=== PATIENT | male | born 1960 | race Caucasian/White ===

== ENCOUNTER → 2016-11-27 | Outpatient (CLI) | payer OTHER ==
[2016-11-27 09:53] LABS: CALCIUM 9.2 mg/dl (8.5-10.1)
[2016-11-27 09:54] LABS: ALT/SGPT 83 U/L (12-78); BLOOD UREA NITROGEN 23 mg/dl (7-18); BUN/CREATININE RATIO 11.7 (10-20); CARBON DIOXIDE 27 mmol/L (21-32); CHLORIDE 107 mmol/L (98-107); CHOLESTEROL 138 mg/dl (0-200); GLUCOSE 171 mg/dl (70-99); POTASSIUM 4.3 mmol/L (3.5-5.1); SODIUM 142 mmol/L (136-145); TRIGLYCERIDES 310 mg/dl (0-150); VERY LOW DENSITY LIPOPROT CALC 62 mg/dl
[2016-11-27 09:58] LABS: ALKALINE PHOSPHATASE 119 U/L (45-117); AST/SGOT 78 U/L (15-37); CHOLESTEROL/HDL RATIO 4.1; HDL CHOLESTEROL 34 mg/dl; LDL CHOLESTEROL CALCULATED 42 mg/dl; PHOSPHORUS 2.8 mg/dl (2.5-4.9)
[2016-11-27 10:01] LABS: ESTIMATED AVERAGE GLUCOSE 189 mg/dl; HA1C FLAG Normal (Normal)
[2016-11-27 10:14] LABS: URINE PROTIEN/CREAT RATIO 0.2 (0-0.2); URINE TOTAL PROTEIN 32.1 mg/dl (0-11.9)
== END ==
LOC: C.LAB 07:13
PROVIDERS: ATTEND Internal Medicine Nephrology
DX: N18.3 Chronic kidney disease, stage 3 (moderate) (principal); I10 Essential (primary) hypertension; E11.21 Type 2 diabetes mellitus with diabetic nephropathy; R80.9 Proteinuria, unspecified; D53.9 Nutritional anemia, unspecified; E55.9 Vitamin D deficiency, unspecified; N25.81 Secondary hyperparathyroidism of renal origin; C65.2 Malignant neoplasm of left renal pelvis; E11.40 Type 2 diabetes mellitus with diabetic neuropathy, unspecified; E78.5 Hyperlipidemia, unspecified

== ENCOUNTER → 2017-08-12 | Outpatient (CLI) | payer OTHER ==
[~2017-08-12] MED LIST: ASPI81TA28 PO; CYM/60 PO; GLIM2TAB2 PO; INSU1INJ32 SQ; ISOS60TA25 PO; METO25TA3 PO; NIAC1TAB59 PO; NVLG SQ; OSEL75CA23 PO; PRAS1TAB6 PO; PROMSYP2 PO; RAMI5CAP PO; SIMV20TA2 PO; SITA50TA3 PO; TAMS0.4C38 PO
[2017-08-12 13:06] LABS: INFLUENZA B ANTIGEN Neg for Influ B (NEG)
== END | disposition home or self-care (01) ==
LOC: C.LAB 10:53
PROVIDERS: ATTEND Family Medicine
DX: R50.9 Fever, unspecified (principal)

== ENCOUNTER 2019-05-21 23:06 | Inpatient (IN) ==
--- OUTSIDE RECORDS SUMMARY | 2019-05-21 23:09 | External Medical Summary | Continuity of Care Document ---
:1960 Author Name Alondra MJelly Address Unavailable Unavailable , Care Team Providers Name Role Phone Unavailable Unavailable Unavailable PCP, UNKNOWN Unavailable Unavailable Unavailable Unavailable Unavailable Problems Cervical radiculopathy at C8 (723.4) (M54.12) Allergies and Adverse Reactions Allergy history not documented Medications Medications not documented Procedures Procedures not documented Immunizations Immunizations not documented Plan of Treatment Planned Observations Planned Goals not documented Results No Known Results Results not documented
[2019-05-21 23:50] LABS: Basophils # (auto) 0.02 K/uL (0-0.2); Basophils % (auto) 0.2 %; Eosinophils # (auto) 0.28 K/uL (0-0.5); Eosinophils % (auto) 2.9 %; Hematocrit (blood only) 36.5 % (42-52); Hemoglobin 11.6 g/dL (14.0-18.0); Immature Granulocytes # (auto) 0.04 K/uL (0.00-0.02); Immature Granulocytes % (auto) 0.4 %; Lymphocytes # (auto) 1.75 K/uL (1.2-3.4); Lymphocytes % (auto) 18.2 %; Mean Corpuscular Hemoglobin 29.2 pg (25-34); Mean Corpuscular Hgb Conc 31.8 g/dL (32-36); Mean Corpuscular Volume 91.9 fL (80-100); Mean Platelet Volume 9.9 fL (7.4-10.4); Monocytes # (auto) 0.88 K/uL (0.11-0.59); Monocytes % (auto) 9.2 %; Neutrophils # (auto) 6.62 K/uL (1.4-6.5); Neutrophils % (auto) 69.1 %; Platelet Count 211 K/uL (130-400); RDW Coefficient of Variation 13.6 % (11.5-14.5); RDW Standard Deviation 45.9 fL (36.4-46.3); Red Blood Count 3.97 M/uL (4.7-6.1); White Blood Count 9.59 K/uL (4.8-10.8)
[2019-05-22 00:08] LABS: BUN Creatinine Ratio 9.4 (10-20); Calcium 8.4 mg/dl (8.5-10.1); Creatinine Clr Calc Pharmacy 41.2 ml/min; Est GFR (Non-African American) 27.6; Magnesium 2.1 mg/dl (1.8-2.4); Potassium 4.2 mmol/L (3.5-5.1)
[2019-05-22 00:20] LABS: Albumin Globulin Ratio 0.8 (0.9-2); Bilirubin,Total 0.3 mg/dl (0.2-1); Troponin I 0.168 ng/ml (0-0.045)
[2019-05-22] MEDS ORDERED: Heparin IV Low Dose WITH Bolus STA (00:28)
[2019-05-22] MEDS ORDERED: METOPROLOL TARTRATE 1 MG/ML VIAL IV STA ×3 (00:37→08:21)
[2019-05-22] MEDS ORDERED: ASPIRIN 325 MG ECTAB PO STA (00:37)
[2019-05-22] MEDS ORDERED: HEPARIN SOD (PORCINE) 1000 UNIT/ML 10 ML VIAL ONE (00:40)
[2019-05-22 00:46] LABS: Prothrombin Time 10.3 Seconds (9.0-12.0)
[2019-05-22] MEDS: HEPARIN SODIUM/DEXTROSE 25,000 UNITS/500 ML BAG IV SCH ×2 (00:51→10:06)
[2019-05-22 01:36] LABS: Partial Thromboplastin Time 26.3 Seconds (21.0-31.0)
[2019-05-22] MEDS ORDERED: MECLIZINE 12.5 MG TAB PO PRN (02:39)
[2019-05-22] MEDS ORDERED: ONDANSETRON INJ 2 MG/ML 2 ML VIAL IV PRN (02:39)
[2019-05-22] MEDS ORDERED: ACETAMINOPHEN W/CODEINE #3 1 TAB PO PRN (02:39)
[2019-05-22] MEDS ORDERED: SODIUM CHLORIDE 0.9% 1000ML 1,000 ML IV SCH (02:39)
[2019-05-22] MEDS ORDERED: METOPROLOL TARTRATE 1 MG/ML VIAL IV ONE (03:04)
[2019-05-22] MEDS ORDERED: GLUCOSE 40% GEL 15 GM TUBE PO PRN (03:45)
[2019-05-22] MEDS ORDERED: DEXTROSE 50% 50 ML SYRINGE IV PRN (03:45)
[2019-05-22] MEDS ORDERED: GLUCOSE 10 TABS/TUBE PO PRN (03:45)
[2019-05-22] MEDS ORDERED: GLUCAGON FOR INJ 1 MG VIAL SQ PRN (03:45)
--- NOTE | 2019-05-22 04:17 | History and Physical Report ---
DATE OF ADMISSION: 05/22/2019 CHIEF COMPLAINT: Chest pain, shortness of breath. HISTORY OF PRESENT ILLNESS: This is a 59-year-old male with past medical history significant for diabetes, CAD status post stents, hyperlipidemia, obstructive sleep apnea, BPH, history of melanoma, history of renal cell carcinoma status post left nephrectomy, history of peripheral neuropathy, presents with chest pain, shortness of breath. Since yesterday, he had some mid chest pain, pressure-like feeling, moderate in severity, no radiation, also some sweating and he is also getting shortness of breath on exertion. The chest pain is also more exertional and reduce at rest and today even climbing one flight of stairs or walking short distance was making him short of breath and lately he is getting more weak and tired, so he took nitro at home and this caused some headache and he came to the ER. Currently, when he came in, his blood pressure was high. He received IV Lopressor and also aspirin and his troponin is 0.16. His troponins in the previous admissions were negative. EKG is unremarkable. Currently, pain is resolved, The patient says he has sleep apnea but does not use CPAP. He had a sleep study done and was told he may need CPAP and went for second sleep study and it did not go well and he did not it again. Didnot had nocturnal pulse ox study in the past. Currently, denies any dizziness, no blurred visions, no earache, no runny nose, no sore throat, no cough, no nausea, no vomiting, no abdominal pain. Normal bowel and bladder movements. No hematuria or burning micturition, no melena or hematochezia. No swelling in the legs, no rash. ALLERGIES: NSAIDS. PAST MEDICAL HISTORY: As mentioned above. PAST SURGICAL HISTORY: Status post left nephrectomy, cardiac catheterization with stent placement, lymph node biopsy. MEDICATIONS: Currently, the patient is on simvastatin 20 mg p.o. at bedtime, Cymbalta 60 mg p.o. daily, Niaspan ER 500 mg p.o. daily, Effient 10 mg p.o. daily, Flomax 0.4 mg p.o. daily, colestipol 1 g b.i.d., NovoLog FlexPen 14 units with breakfast, 18 units with lunch, Imdur 90 mg daily, ramipril 5 mg p.o. daily, metoprolol 12.5?mg p.o. b.i.d., nitroglycerin 0.4 mg sublingual p.r.n., Tradjenta 5 mg daily, Tylenol with codeine 1 tablet every 4 hours p.r.n., colchicine 0.6 mg p.r.n., cyanocobalamin 1000 mcg p.o. daily, aspirin 162 mg daily, Tresiba 62 units daily, meclizine 25 mg p.o. t.i.d. p.r.n., vitamin D 1000 units p.o. daily, Xanax 0.5 mg p.r.n. FAMILY HISTORY: Significant for grandmother had skin cancer. SOCIAL HISTORY: . No smoking, no alcohol, no drug use. REVIEW OF SYMPTOMS: As per HPI. Rest of review of systems negative. PHYSICAL EXAMINATION: GENERAL: The patient is obese, not in acute distress. VITAL SIGNS: Temperature 36.8, pulse 86, respiratory rate 18, blood pressure 178/89, and oxygen 96% on room air. HEENT: No pallor, no icterus. Pupils equal, round, reactive to light. NECK: No JVD, no neck masses, no carotid bruits. CARDIOVASCULAR: S1, S2 heard, regular rate and rhythm, no murmur, no gallop. RESPIRATORY SYSTEM: Normal AP diameter. No thyromegaly. No wheezing, no crackles. ABDOMEN: Soft, bowel sounds present, nontender. No distention. CENTRAL NERVOUS SYSTEM: Cranial nerves II-XII grossly intact. Nonfocal. EXTREMITIES: No edema, no erythema. LABORATORY DATA: WBC is 9.5, hemoglobin 11.6, hematocrit 36.5, platelets 211. PT 10.3, INR 1.1. Sodium 141, potassium 4.2, chloride 109, bicarbonate 25, BUN 23, creatinine 2.4, serum glucose 184, calcium 8.4, magnesium 2.1, total bilirubin 0.3, AST 29, ALT 28, alkaline phosphatase 168. Troponin 0.16, BNP 1026. rib/ chest x-ray unremarkable, await official report. EKG: Normal sinus rhythm with rate of 91, no significant change from previous EKG. ASSESSMENT AND PLAN: This is a 59-year-old male with history of diabetes, coronary artery disease status post stents, obstructive sleep apnea, benign prostatic hyperplasia, hyperlipidemia, presents with chest pain, shortness of breath. 1. Chest pain and shortness of breath on exertion. Troponin is mildly elevated at 0.16. On previous admission troponin was not elevated, possibly non-ST elevated myocardial infarction / unstable angina, started on IV heparin and received aspirin in the Emergency Room. We will continue IV heparin, IV morphine p.r.n. and iv Lopressor p.r.n. Continue his home medications of Imdur, Toprol, aspirin, Effient, and statin. Follow serial cardiac enzymes, follow echo. We will keep her nothing per mouth and consult cardiology for further recommendations. 2. Coronary artery disease status post stents. Continue his home medication of statin, beta zeke, Imdur, aspirin, niacin, and Effient. and Niacin. 3. Diabetes. , insulin sliding scale. Continue home Tresiba q hs. IF NPO tomorrow may need to reduce the dose. Follow hemoglobin A1c levels. 4. Obstructive sleep apnea, not on CPAP and needs to follow with primary care physician. May need to get a sleep study and may need nocturnal pulse ox study. 5. Acute renal failure, chronic kidney disease stage III, baseline creatinine of 2.1, current creatinine of 2.4. Getting gentle fluids. Follow the labs in morning. 6. Deep venous thrombosis prophylaxis, on IV heparin. DISPOSITION: Admit to tele floor. Expect discharge home and follow with family doctor. Level 1 full code. MTDD
--- NOTE | 2019-05-22 05:35 | XRay Report ---
XR ribs RT min 3V w CXR1V CLINICAL HISTORY: sob, recent fall right rib pain COMPARISON STUDY: No previous studies for comparison. FINDINGS: Fractures anterior right seventh eighth and ninth ribs. Old fracture right 10th rib. No ammy dence for pneumothorax. Remaining bony structures are unremarkable. IMPRESSION: 1. Fracture anterior right seventh through ninth ribs. 2. Old fracture right 10th rib. 3. No evidence for pneumothorax. The above report was generated using voice recognition software. It may contain grammatical, syntax or spelling errors. Electronically signed by: Robert Wagner M.D. 05/22/2019 5:34 AM
[2019-05-22 05:40] LABS: Basophils # (auto) 0.03 K/uL (0-0.2); Basophils % (auto) 0.3 %; Eosinophils # (auto) 0.39 K/uL (0-0.5); Hematocrit (blood only) 36.9 % (42-52); Hemoglobin 12.1 g/dL (14.0-18.0); Immature Granulocytes # (auto) 0.06 K/uL (0.00-0.02); Immature Granulocytes % (auto) 0.6 %; Lymphocytes # (auto) 2.24 K/uL (1.2-3.4); Lymphocytes % (auto) 23.1 %; Mean Corpuscular Hemoglobin 29.7 pg (25-34); Mean Corpuscular Hgb Conc 32.8 g/dL (32-36); Mean Corpuscular Volume 90.7 fL (80-100); Mean Platelet Volume 9.6 fL (7.4-10.4); Monocytes # (auto) 0.91 K/uL (0.11-0.59); Monocytes % (auto) 9.4 %; Neutrophils # (auto) 6.08 K/uL (1.4-6.5); Neutrophils % (auto) 62.6 %; Platelet Count 207 K/uL (130-400); RDW Coefficient of Variation 13.7 % (11.5-14.5); RDW Standard Deviation 45.3 fL (36.4-46.3); Red Blood Count 4.07 M/uL (4.7-6.1); White Blood Count 9.71 K/uL (4.8-10.8)
[2019-05-22 05:58] LABS: BUN Creatinine Ratio 8.9 (10-20); Calcium 8.2 mg/dl (8.5-10.1); Creatinine Clr Calc Pharmacy 43.8 ml/min; Est GFR (African American) 34.7; Est GFR (Non-African American) 29.9
[2019-05-22 06:09] LABS: Partial Thromboplastin Ratio 1.4; Partial Thromboplastin Time 38.2 Seconds (21.0-31.0)
[2019-05-22] MEDS: METOPROLOL TARTRATE 1 MG/ML VIAL IV PRN (07:33)
[2019-05-22] MEDS: INSULIN ASPART 100 UNITS/ML 3 ML PEN SC SCH ×4 (07:40→20:10)
[2019-05-22] MEDS: ISOSORBIDE MONO EXTENDED REL 60 MG TABCR PO SCH (07:48)
[2019-05-22] MEDS: MoRPHine SULFATE 2 MG/ML CARP IV PRN ×2 (07:58→16:36)
[2019-05-22] MEDS ORDERED: MIDAZOLAM HCL 1 MG/ML 2ML VIAL ONE (08:00)
[2019-05-22] MEDS ORDERED: HEPARIN (PORCINE) 1000 UNIT/ML 10 ML (CATH LAB USE ONLY) ONE (08:00)
[2019-05-22] MEDS ORDERED: NiCARDipine HCL INJ 2.5 MG/ML 10 ML AMP ONE (08:00)
[2019-05-22] MEDS ORDERED: fentaNYL citrate 100 MCG/2 ML VIAL ONE (08:00)
[2019-05-22] MEDS: NITROGLYCERIN SL 0.4 MG/TAB TAB SL PRN ×2 (08:01→08:06)
[2019-05-22] MEDS ORDERED: NITROGLYCERIN/D5W 100MCG/ML 20ML SYR ONE (08:02)
[2019-05-22] MEDS ORDERED: ASPIRIN 81 MG CHEW ONE (08:07)
[2019-05-22 08:12] LABS: Estimated Average Glucose 183 mg/dl
--- NOTE | 2019-05-22 08:24 | Cardiology Consultation ---
Date of Consultation May 22, 2019 Assessment & Plan (1) NSTEMI (non-ST elevated myocardial infarction): Received phone call from Dr Gomez while I was driving in to the hospital just before 8 am stating the patient was in distress with progressive CP and SOB. SBP > 200 mm Hg. On my arrival , pt on Bipap, had already received 7. 5 mg of of metoprolol EKG without significant acute ST changes. Heart alert protocol activated by Dr Gomez just prior to my arrival. After assessing pt , I agree. Has history of single kidney, s/p nephrectomy for renal cell CA. Baseline creatine 2.2 , lab 05/10/19 at [facility]. 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 Update, 05/22/2019 at 9:35 AM: Cardiac catheterization revealed known distal LAD occlusion, previously documented on cardiac catheterization report dated back to 2008. No other coronary culprit. The patient's left ventricular end-diastolic pressure however was elevated at 30 mmHg, and ongoing hypertension was noted in the cardiac catheterization laboratory. At this time, it appears that the patient's symptoms of shortness of breath are due to hypertensive crisis with combined left ventricular systolic and diastolic dysfunction, likely some degree of volume overload in the setting of chronic kidney disease. His creatinine of 2.4 on presentation is a little bit higher than is 2.2 which is his previous baseline but not significantly so. He however now has received a small dose of contrast. The patient's blood pressure has been refractory to doses of IV metoprolol and sublingual nitroglycerin x2, he has been placed on an IV nitroglycerin infusion in the [facility] and is to be transferred to the intensive care unit for ongoing care. Cautious diuresis will be pursued with the advice of the nephrology service. Given cardiac catheterization data, patient has likely had a mild troponin elevation in setting of myocardial strain from hypertension and volume overload. Echocardiogram reveals anteroseptal, apical wall motion abnormality, and basal inferior wall motion of normality is compatible with his prior remote history, with mild left ventricular systolic dysfunction ejection fraction in the range of 45%, grade 2 diastolic dysfunction with Doppler findings suggestive of elevated filling pressure. Further recommendations will be forthcoming. History of Present Illness Attending Physician: Marcie Gomez MD History of Present Illness Jonny Burgos is a 59 year old male seen in cardiology consultation per the request of Dr Koo and Dr Gomez for the evaluation of chest discomfort. The patient's PCP is Dr Dre Castano. His primary cardioogist is Dr Meza in [place], [place]. Patient has a history of renal cell carcinoma with removed nephrectomy and resultant single kidney. Per review of his record, his baseline creatinine is 2.2, with a recent calculated GFR of 31.5 as an outpatient on 05/10/2019. He also has a history of type 2 diabetes mellitus, and coronary heart disease. Review of the available records there appears he had a past myocardial infarction, and I [facility]. At that time at the age of 48 the patient had a diagnostic cardiac catheterization on 08/29/2018 which revealed a subtotal occlusion of the left anterior descending coronary artery with right to left collaterals to the LV apex and also had severe right PDA disease. CT surgery has been consulted that time, and it was felt that the LAD territory was not viable, and therefore the patient went on to have PCI to the RPDA lesion. A week ago the patient was traveling and had a mechanical fall while in the shower and suffered right-sided injury, based on chest x-ray performed on presentation last evening he has had a rib fracture. More recently, 2 days ago he started complaining of on and off again chest discomfort, with 2 episodes prior to hospital stay. He also had some associated shortness of breath. Due to the shortness of breath he presented to the emergency department at [place] overnight last night with initial vital signs performed on 05/21/2019 at 2315 including a blood pressure 196/95. His troponin was mildly elevated at 0.168.The patient was seen for admission by Dr. Koo his symptoms had resolved, but this morning just after 7:00, he developed significant shortness of breath as well as chest discomfort. He was seen acutely at the bedside by Dr. Gomez, and I was alerted that the patient had a change in condition by telephone call just before 8 AM, and therefore I arrived shortly thereafter. Allergies Allergy/AdvReac Type Severity Reaction Status Date / Time cucumber Allergy Severe reports Verified 05/22/19 00:56 rash/hives NSAIDS (Non-Steroidal AdvReac Severe to avoid Verified 05/22/19 00:56 Anti-Inflamma due to poor renal fxn oseltamivir [From Tamiflu] AdvReac Unknown Confusion Verified 05/22/19 02:26 Home Medications Home Medications Medication Instructions Recorded Confirmed Type acetaminophen-codeine 1 tab PO UD PRN 05/22/19 05/22/19 History alprazolam [Xanax] 0.25 mg PO Q8 PRN 05/22/19 05/22/19 History aspirin 162 mg PO DAILY 05/22/19 05/22/19 History cholecalciferol (vitamin D3) 3,000 unit PO DAILY 05/22/19 05/22/19 History [Vitamin D3] colchicine [Colcrys] 0.6 mg PO DAILY PRN 05/22/19 05/22/19 History cyanocobalamin (vitamin B-12) 1,000 mcg PO DAILY 05/22/19 05/22/19 History [Vitamin B-12] duloxetine 60 mg PO DAILY 05/22/19 05/22/19 History icosapent ethyl [Vascepa] 1 g PO BID 05/22/19 05/22/19 History insulin aspart U-100 [Novolog 0 unit SUBCUT TIDM 05/22/19 05/22/19 History Flexpen U-100 Insulin] insulin degludec [Tresiba 72 unit SUBCUT HS 05/22/19 05/22/19 History FlexTouch U-200] isosorbide mononitrate 90 mg PO DAILY 05/22/19 05/22/19 History linagliptin [Tradjenta] 5 mg PO DAILY 05/22/19 05/22/19 History meclizine 12.5 mg PO Q8 PRN 05/22/19 05/22/19 History metoprolol tartrate 12.5 mg PO BID 05/22/19 05/22/19 History niacin 500 mg PO DAILY 05/22/19 05/22/19 History prasugrel [Effient] 10 mg PO DAILY 05/22/19 05/22/19 History ramipril 5 mg PO DAILY 05/22/19 05/22/19 History simvastatin 20 mg PO HS 05/22/19 05/22/19 History tamsulosin 0.4 mg PO DAILY 05/22/19 05/22/19 History Patient History Medical History Heart attack Melanoma Surgical History History of intravascular stent placement Social History Preferred Language: Vietnamese Communication Ability: Effective Beliefs That Will Affect Care: None Current Living Situation: Alone Feels Safe at Home: Yes Safety Concerns: Feels Safe At This Time Smoking Status: Never smoker Hx Alcohol Use: Yes Hx Substance Use: No Review of Systems Review of Systems: All systems reviewed & are unremarkable except as noted in HPI & below Physical Exam Physical Exam: Temp Pulse Resp BP Pulse Ox 36.4 C L 84 17 214/113 H 99 05/22/19 07:31 05/22/19 09:05 05/22/19 09:05 05/22/19 07:31 05/22/19 09:05 Constitutional: WD/WN, vitals as above Respiratory: normal respiratory effort, lungs clear to auscultation Cardiovascular: Rate/Rhythm: regular rate Heart Sounds: no murmur Vessels: + JVD Gastrointestinal (Abdomen): normal bowel sounds, soft, nontender, no hepatosplenomegaly Neurologic: PERRL, EOMI, accommodation nl, no face palsy, no dysarthria Results & Data Vital Signs (Past 12 Hours) Vital Signs Temp Pulse Pulse Resp BP BP BP 05/22/19 07:31 36.4 C L 101 H 20 214/113 H 05/22/19 03:51 174/94 H 05/22/19 03:29 85 198/93 H 05/22/19 02:53 36.8 C 88 18 193/98 H 05/22/19 01:50 36.7 C 101 H 22 202/89 H 05/22/19 01:35 83 18 179/94 H 05/22/19 01:04 86 18 178/89 H 05/22/19 00:57 88 189/93 H 05/21/19 23:15 36.8 C 99 H 26 H 196/95 H Pulse Ox 05/22/19 07:31 92 05/22/19 03:51 05/22/19 03:29 05/22/19 02:53 97 05/22/19 01:50 96 05/22/19 01:35 96 05/22/19 01:04 96 05/22/19 00:57 05/21/19 23:15 97 Laboratory Results Cardiac Enzymes 05/21/19 05/22/19 Range/Units 23:31 05:17 AST 29 (15-37) U/L Troponin I 0.168 H* 0.096 H* (0-0.045) ng/ml Coagulation 05/21/19 05/21/19 05/22/19 Range/Units 23:31 23:31 05:17 PT 10.3 (9.0-12.0) Seconds APTT 26.3 38.2 H (21.0-31.0) Seconds CBC 05/21/19 05/22/19 Range/Units 23:31 05:17 WBC 9.59 9.71 (4.8-10.8) K/uL RBC 3.97 L 4.07 L (4.7-6.1) M/uL Hgb 11.6 L 12.1 L (14.0-18.0) g/dL Hct 36.5 L 36.9 L (42-52) % Plt Count 211 207 (130-400) K/uL Neut # (Auto) 6.62 H 6.08 (1.4-6.5) K/uL Lymph # (Auto) 1.75 2.24 (1.2-3.4) K/uL [place] # (Auto) 0.88 H 0.91 H (0.11-0.59) K/uL Eos # (Auto) 0.28 0.39 (0-0.5) K/uL Baso # (Auto) 0.02 0.03 (0-0.2) K/uL Comprehensive Metabolic Panel 05/21/19 05/22/19 Range/Units 23:31 05:17 Sodium 141 142 (136-145) mmol/L Potassium 4.2 4.0 (3.5-5.1) mmol/L Chloride 109 H 112 H (98-107) mmol/L Carbon Dioxide 25 24 (21-32) mmol/L BUN 23 H 21 H (7-18) mg/dl Creatinine 2.49 H 2.33 H (0.6-1.4) mg/dl Glucose 184 H 91 (70-99) mg/dl Calcium 8.4 L 8.2 L (8.5-10.1) mg/dl AST 29 (15-37) U/L ALT 28 (12-78) U/L Alkaline Phosphatase 165 H (45-117) U/L Total Protein 7.0 (6.4-8.2) gm/dl Albumin 3.0 L (3.4-5.0) gm/dl Intake and Output 05/21/19 05/22/19 05/22/19 22:59 06:59 14:59 Intake Total 129 / 129 Output Total 700 / 700 Balance -700 / -700 129 / 129 Intake: IV 129 / 129 HEPARIN SODIUM/DEXTROSE 25,000 129 / 129 units In 500 ml @ 1,000 UNITS/ HR 20 mls/hr IV .Q24H [facility] Rx#: [id number] Oral 0 / 0 Output: Urine 700 / 700 Other: Other Intake Source npo Weight 111.8 kg Diagnostic Findings Stat EKG performed 05/22/2019 at 7:54 AM revealed normal sinus rhythm at 90 bpm, there is some degree of baseline artifact, findings of an age-indeterminate anterior infarction noted with poor R wave progression leads V1 to V4. Unchanged compared to the admission EKG
[2019-05-22] MEDS ORDERED: NITROGLYCERIN/D5W 100 MCG/ML BTL ONE (08:36)
--- NOTE | 2019-05-22 08:48 | Post Anesthesia Assessment ---
Date of Service May 22, 2019 Post Sedation Assessment Vital Signs Temp Pulse Pulse Resp BP BP BP 05/22/19 08:00 99 H 34 H 05/22/19 07:31 97.5 F L 101 H 20 214/113 H 05/22/19 03:51 174/94 H 05/22/19 03:29 85 198/93 H 05/22/19 02:53 98.2 F 88 18 193/98 H 05/22/19 01:50 98.1 F 101 H 22 202/89 H 05/22/19 01:35 83 18 179/94 H 05/22/19 01:04 86 18 178/89 H 05/22/19 00:57 88 189/93 H 05/21/19 23:15 98.2 F 99 H 26 H 196/95 H Pulse Ox 05/22/19 08:00 99 05/22/19 07:31 92 05/22/19 03:51 05/22/19 03:29 05/22/19 02:53 97 05/22/19 01:50 96 05/22/19 01:35 96 05/22/19 01:04 96 05/22/19 00:57 05/21/19 23:15 97 Recovery Score Activity: Moves 4 extremities Respiration: Deep Breath/Cough Circulation: +/-20% PreAnes Value Consciousness: Fully Awake Oxygen Saturation: O2 needed for >90% Discharge Sedation Level of Care: Fast Track Phase II Post Sedation Plan On clinical assessment, the patient appears to have tolerated the sedation without complications. Patient is recovering as anticipated. Patient will continue to be monitored by nursing and may be discharged when sedation discharge criteria are met per below protocol. Upon Completions of procedure and additional 15 minutes continue every 5 minute vital signs and the P.A.R. score; then discharge to a Phase I or Fast Track to Phase II per the following guidelines: * Discharge Patient to appropriate Phase II area if PAR is 8 or greater or return to pre- procedure baseline. The post - procedure orders will be as directed. * If PAR score is less than 8 or not return to pre-procedure baseline then patient will follow Phase I monitoring till PAR is reached for Phase II. The Phase I may be done in procedure room or may call to secure a Phase I area. * If naloxone or flumazenil are used for reversal, hold in Phase I for continued monitoring from when last reversal dose was given for a minimum of 60 minutes or longer pending the nurse and/or physician discretion of patient condition before discharge to Phase II. Please call the Sedation Physician to re-evaluate and complete post-note for discharge to Phase II area. Do NOT discharge from procedure sedation or Phase 1 until post- sedation evaluation note is complete by procedure /sedation MD Sedation Discharge Instructions to be given to the patient at discharge to home.
--- NOTE | 2019-05-22 08:48 | Pre Anesthesia Assessment ---
Date of Service May 22, 2019 Pre Sedation Assessment Vital Signs Temp Pulse Pulse Resp BP BP BP 05/22/19 08:00 99 H 34 H 05/22/19 07:31 97.5 F L 101 H 20 214/113 H 05/22/19 03:51 174/94 H 05/22/19 03:29 85 198/93 H 05/22/19 02:53 98.2 F 88 18 193/98 H 05/22/19 01:50 98.1 F 101 H 22 202/89 H 05/22/19 01:35 83 18 179/94 H 05/22/19 01:04 86 18 178/89 H 05/22/19 00:57 88 189/93 H 05/21/19 23:15 98.2 F 99 H 26 H 196/95 H Pulse Ox 05/22/19 08:00 99 05/22/19 07:31 92 05/22/19 03:51 05/22/19 03:29 05/22/19 02:53 97 05/22/19 01:50 96 05/22/19 01:35 96 05/22/19 01:04 96 05/22/19 00:57 05/21/19 23:15 97 Cardiovascular RRR, no murmur, no edema Respiratory normal respiratory effort, lungs clear to auscultation Pre-Sedation Airway Assessment Smoking Status: Never smoker Hx Sleep Apnea: No Hx Difficult Intubation: No Short, Thick Neck: No Thyromental Distance: > or= 3.5 Finger Breadths Procedure Planning Contraindications for Sedation: none Current Medications Reviewed: Yes Notes The planned sedation has been discussed with the patient. Informed Consent was obtained. I have identified the patient, determined the appropriateness of sedation and have assessed the patient immediately prior to the procedure. All medicine(s) and interventions are by my order.
--- NOTE | 2019-05-22 08:51 | Cardiac Catheterization ---
[facility] Data: [place] Cardiac Status Clinical evaluation leading to the procedure CAD Presenation: Non STEMI Heart Failure: NYHA Class: CCS IV Cardiogenic Shock within 24 Hours: No Cardiac Arrest within 24 Hours: No Imaging Studies Past 6 Months: Yes Stress Studies Past 6 Months: No Diagnostic Physicians Name: Laith Eckert MD Status: Emergency Closure Device Percutaneous Entry Location: Radial Closure Device: Radial Band Recommendations: Medical Therapy and/or Counseling Intraprocedure Events Significant Disection: No Perforation: No Cardiac Cath Procedure Full Procedure Date May 22, 2019 Pre-Procedure Diagnosis Pre-Procedure Diagnosis: Non STEMI AUC Score AUC Score: 8 Post-Procedure Diagnosis Post-Procedure Diagnosis: Severe CAD and Elevated Intracardiac Pressures Procedure(s) Performed Procedure(s) Performed: Coronary Angiography and Left Heart Cath Rouge Miller Laith Eckert MD Gun Stocker(s) Júnior Estimated Blood Loss Estimated Blood Loss: 5 Medication(s) Medication(s): Fentanyl, Heparin, Lidocaine 1%, Nicardipine, Nitroglycerin and Versed Summary of Findings Indication: Suspected ACS/heart alert Access: 6 Fr right radial artery Catheters: [place] Findings: LM -luminal irregularities LAD -20 to 30% ostial, diffuse 50% mid at takeoff of first septal extending past takeoff of second diagonal. 99% earlydistal and 99% stenosis as wraps around apex. Bifurcating first septal with high-grade ostial stenosis. Moderate caliber second diagonal with luminal irregularities and LAUREN-3 flow. Circumflex -moderate caliber vessel, 20 to 30% ostial. Very small OM 2 occluded with partial filling distally via left to left collaterals. Very small left PLB with 95% stenosis. RCA -dominant, patent proximal to mid stents, latemid luminal irregularities, 30 to 40% distal stenosis prior to takeoff of right PDA. LVEDP -30 Arterial Closure: TR band Summary: 1. Severe single vessel chronic coronary artery disease -50% diffuse mid LAD, sequential 99% distal LAD lesions 2. Elevated intracardiac filling pressure Recommendations: Medical management of chronic CAD. Blood pressure control, diuretics per nephrology for elevated LV filling pressures. Hemodynamics Rest Ao:: 178/24/135 Final Ao: 194/27/140 LV: 158/30 Recommendations Recommendations: Medical Therapy and/or Counseling Specimens Specimens: None Radiation Exposure (mGy) 773 Contrast (mls) 35 Fluids (cc crystalloids) Fluids (cc crystalloids): 6 Anesthesia Moderate Procedural Complication(s) None Disposition ICU I attest to the content of the Intraoperative Record and any orders documented therein. Any exceptions are noted below.
[2019-05-22] MEDS ORDERED: METOPROLOL TARTRATE 25 MG TAB PO SCH (09:00)
[2019-05-22] MEDS ORDERED: ENALAPRIL MALEATE 10 MG TAB PO SCH (09:00)
[2019-05-22] MEDS ORDERED: DULOXETINE HCL 60 MG CAP PO SCH (09:00)
[2019-05-22] MEDS ORDERED: NIACIN EXTENDED REL 500 MG TABCR PO SCH (09:00)
[2019-05-22] MEDS ORDERED: CYANOCOBALAMIN 500 MCG TABLET (VITAMIN B-12) PO SCH (09:00)
--- NOTE | 2019-05-22 09:12 | Critical Care Consultation ---
Date of Consultation May 22, 2019 Assessment & Plan (1) NSTEMI (non-ST elevated myocardial infarction): Reason Critically Ill: 59yo with PMHx significant for CAD s/p stent placement, HTN, HLD, Diabetes, COLIN s/p cardiac cath 05/22/19 for NSTEMI. NEURO -[facility] ICU Negative -IV Morphine 2mg [id number] PRN for pain CV -Pt with CAD s/p historical stent placement, HTN, HLD, Diabetes, COLIN NOT on CPAP s/p cardiac cath 05/22/19 for NSTEMI. NSTEMI -Pt with progressive SOB and chest pain this AM -s/p cardiac cath 05/22/19: LAD with 50% diffuse mid stenosis and sequential 99% distal lesions -EKG currently with NSR, heart rate of 98, qtc 449 -Echo 04/22: mild conc LVH, decreased systolic function with EF of 45%, Grade II diastolic dysfunction. -Trops downtrendin.168 to 0.096 to 0.073 -continue O2 supplementation via NC; will wean -continue aspirin, nitroglycerin and heparin gtt, prasugrel administration -continue home statin, Imdur HTN -Continue Lopressor 25mg BID with PRN IV Lopressor 2.5mg for SBP>160 -Of note, home Lopressor dose is 12.5mg BID -HOLD home ramipril 5mg PO daily HLD, Angina -continue home statin, imdur PULM -Currently on 2L NC; continue to wean -Counseled on likely need for CPAP given Hx of COLIN: pt with Hx of incomplete sleep study. -Chest XR 05/21- no evidence of pneumothorax, fractures of 7-9th ribs. ABD/GI -on heart healthy diet /RENAL -Hx of CKD, BPH -at baseline Cr -continue home Flomax ENDO -Hx of diabetes Type II -Hemoglobin A1C of 8.0 noted on May 21 -ICU protocol for hyperglycemia ID -no concerns currently HEME -mild anemia -No concerns currently LINES: 2 PIVs DVT Prophylaxis: Heparin FULL CODE DISPO: ICU (2) Admitted to intensive care unit: (3) Hypertensive emergency: Supervising Physician Co-Signing Physician Notes Dr. Jeong was the resident-physician during care of patient. I separately evaluated patient for cronin portions of the history and the exam. I was present during the critical portion of medical decision making, and I discussed the case with the resident. I generally agree with the findings and plan except for any additions/exceptions noted. I personally reviewed the patient's labs and imaging. Patient presented with hypertensive emergency and likely an NSTEMI. He was found to have known luminal irregularities in his coronary arteries on left heart cath today. He also had an elevated LVEDP. He has numerous risk factors including uncontrolled diabetes, untreated sleep apnea, hypertension, hyperlipidemia and obesity. Continue medical management at this present time. Continue heparin drip unless otherwise noted by cardiology. Trend troponins every 6 hours until peak and plateau. Continue statin and beta-zeke. Continue aspirin and Prasugrel. He does have underlying kidney disease and one kidney due to prior nephrectomy. Continue to monitor his kidney function closely. Avoid nephrotoxic agents. Continue nitroglycerin IV for now given his hypertensive emergency. Continue BiPAP at night. I discussed CPAP with him at length and he will consider this. He needs to complete a CPAP titration study. Continue to monitor the patient in the intensive care unit for today. I have personally spent 45 minutes of critical care time in the direct management of this patient. This is a life/limb threatening event. This includes time spent evaluating patient, direct bedside care, chart review, placing orders, interpretation of diagnostic studies, discussion with consultants, patient, and/or family members regarding treatment decisions, as well as other required patient management activities. This time is exclusive of all separately billable procedures, and teaching time and separate from and in addition to any other critical care service time. History of Present Illness Reason for Consultation: NSTEMI s/p cardiac cath Attending Physician: Marcie Gomez MD History of Present Illness Pt with at bedside provides Hx. States that he had been having progressive SOB over the weekend, to the point that he was very breathless even while laying down. Presented to the ED, where this AM was noted to have SOB, chest heaviness with a systolic BP >200. Was taken to cardiac cath where the LAD was noted to be distally 99% occluded. Of note pt states that he had a fall last week while in the shower. 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 Allergies Allergy/AdvReac Type Severity Reaction Status Date / Time cucumber Allergy Severe reports Verified 05/22/19 00:56 rash/hives NSAIDS (Non-Steroidal AdvReac Severe to avoid Verified 05/22/19 00:56 Anti-Inflamma due to poor renal fxn oseltamivir [From Tamiflu] AdvReac Unknown Confusion Verified 05/22/19 02:26 Home Medications Home Medications Medication Instructions Recorded Confirmed Type acetaminophen-codeine 1 tab PO UD PRN 05/22/19 05/22/19 History alprazolam [Xanax] 0.25 mg PO Q8 PRN 05/22/19 05/22/19 History aspirin 162 mg PO DAILY 05/22/19 05/22/19 History cholecalciferol (vitamin D3) 3,000 unit PO DAILY 05/22/19 05/22/19 History [Vitamin D3] colchicine [Colcrys] 0.6 mg PO DAILY PRN 05/22/19 05/22/19 History cyanocobalamin (vitamin B-12) 1,000 mcg PO DAILY 05/22/19 05/22/19 History [Vitamin B-12] duloxetine 60 mg PO DAILY 05/22/19 05/22/19 History icosapent ethyl [Vascepa] 1 g PO BID 05/22/19 05/22/19 History insulin aspart U-100 [Novolog 0 unit SUBCUT TIDM 05/22/19 05/22/19 History Flexpen U-100 Insulin] insulin degludec [Tresiba 72 unit SUBCUT HS 05/22/19 05/22/19 History FlexTouch U-200] isosorbide mononitrate 90 mg PO DAILY 05/22/19 05/22/19 History linagliptin [Tradjenta] 5 mg PO DAILY 05/22/19 05/22/19 History meclizine 12.5 mg PO Q8 PRN 05/22/19 05/22/19 History metoprolol tartrate 12.5 mg PO BID 05/22/19 05/22/19 History niacin 500 mg PO DAILY 05/22/19 05/22/19 History prasugrel [Effient] 10 mg PO DAILY 05/22/19 05/22/19 History ramipril 5 mg PO DAILY 05/22/19 05/22/19 History simvastatin 20 mg PO HS 05/22/19 05/22/19 History tamsulosin 0.4 mg PO DAILY 05/22/19 05/22/19 History Patient History Medical History Heart attack Melanoma Surgical History History of intravascular stent placement Social History Preferred Language: Togolese Communication Ability: Effective Beliefs That Will Affect Care: None Current Living Situation: Alone Feels Safe at Home: Yes Safety Concerns: Feels Safe At This Time Smoking Status: Never smoker Hx Alcohol Use: Yes Hx Substance Use: No Review of Systems Review of Systems: All systems reviewed & are unremarkable except as noted in HPI & below Constitutional: + fatigue Respiratory: + dyspnea Cardiovascular: no chest pain, no palpitations and no edema Gastrointestinal: no nausea and no vomiting Integumentary: no rash Neurologic: no headache(s) Endocrine: + fatigue Physical Exam Physical Exam: General: Alert, oriented. Laying in bed with mask on face, obese gentleman HEENT: NC/AT, PERRLA, EOMI, oropharynx moist. Chest: Nontender to palpation. CV: RRR, Normal s1, s2. No murmurs appreciated Resp: Breath sounds clear bilaterally. No crackles/rhonchi/rales. Abdomen: Soft, nontender. No guarding. No organomegaly appreciated. Extremities: No edema in lower extremities bilaterally. Neuro: No gross deficits. Psych: Appropriate mood and affect. Results & Data Vital Signs (Past 12 Hours) Vital Signs Temp Pulse Pulse Resp BP BP BP 05/22/19 09:05 84 17 05/22/19 08:00 99 H 34 H 05/22/19 07:40 87 05/22/19 07:31 36.4 C L 101 H 20 214/113 H 05/22/19 03:51 174/94 H 05/22/19 03:29 85 198/93 H 05/22/19 02:53 36.8 C 88 18 193/98 H 05/22/19 01:50 36.7 C 101 H 22 202/89 H 05/22/19 01:35 83 18 179/94 H 05/22/19 01:04 86 18 178/89 H 05/22/19 00:57 88 189/93 H 05/21/19 23:15 36.8 C 99 H 26 H 196/95 H Pulse Ox 05/22/19 09:05 99 05/22/19 08:00 99 05/22/19 07:40 05/22/19 07:31 92 05/22/19 03:51 05/22/19 03:29 05/22/19 02:53 97 05/22/19 01:50 96 05/22/19 01:35 96 05/22/19 01:04 96 05/22/19 00:57 05/21/19 23:15 97 Laboratory Results Laboratory Results - last 24 hr 05/21/19 05/21/19 05/21/19 23:31 23:31 23:31 WBC 9.59 RBC 3.97 L Hgb 11.6 L Hct 36.5 L MCV 91.9 MCH 29.2 MCHC 31.8 L RDW Std Deviation 45.9 RDW Coeff of Terell 13.6 Plt Count 211 MPV 9.9 Immature Gran % (Auto) 0.4 Neut % (Auto) 69.1 Lymph % (Auto) 18.2 Sanders % (Auto) 9.2 Eos % (Auto) 2.9 Baso % (Auto) 0.2 Immature Gran # (Auto) 0.04 H Neut # (Auto) 6.62 H Lymph # (Auto) 1.75 Sanders # (Auto) 0.88 H Eos # (Auto) 0.28 Baso # (Auto) 0.02 PT 10.3 INR 1.0 APTT PTT Ratio Sodium 141 Potassium 4.2 Chloride 109 H Carbon Dioxide 25 Anion Gap 7.0 BUN 23 H Creatinine 2.49 H Est Cr Clr Drug Dosing 41.2 Est GFR ( Amer) 32.0 Est GFR (Non-Af Amer) 27.6 BUN/Creatinine Ratio 9.4 L Glucose 184 H POC Glucose Estimat Average Glucose Hemoglobin A1c Calcium 8.4 L Magnesium 2.1 Total Bilirubin 0.3 AST 29 ALT 28 Alkaline Phosphatase 165 H Troponin I 0.168 H* NT-Pro-B Natriuret Pep 1026 H Total Protein 7.0 Albumin 3.0 L Globulin 4.0 Albumin/Globulin Ratio 0.8 L Triglycerides Cholesterol LDL Cholesterol, Calc VLDL Cholesterol, Calc HDL Cholesterol Cholesterol/HDL Ratio Blood Type Antibody Screen 05/21/19 05/22/19 05/22/19 23:31 01:02 05:17 WBC RBC Hgb Hct MCV MCH MCHC RDW Std Deviation RDW Coeff of Terell Plt Count MPV Immature Gran % (Auto) Neut % (Auto) Lymph % (Auto) Sanders % (Auto) Eos % (Auto) Baso % (Auto) Immature Gran # (Auto) Neut # (Auto) Lymph # (Auto) Sanders # (Auto) Eos # (Auto) Baso # (Auto) PT INR APTT 26.3 38.2 H PTT Ratio 1.0 1.4 Sodium Potassium Chloride Carbon Dioxide Anion Gap BUN Creatinine Est Cr Clr Drug Dosing Est GFR ( Amer) Est GFR (Non-Af Amer) BUN/Creatinine Ratio Glucose POC Glucose Estimat Average Glucose Hemoglobin A1c Calcium Magnesium Total Bilirubin AST ALT Alkaline Phosphatase Troponin I NT-Pro-B Natriuret Pep Total Protein Albumin Globulin Albumin/Globulin Ratio Triglycerides Cholesterol LDL Cholesterol, Calc VLDL Cholesterol, Calc HDL Cholesterol Cholesterol/HDL Ratio Blood Type B Positive Antibody Screen NEGATIVE 05/22/19 05/22/19 05/22/19 05:17 05:17 05:17 WBC 9.71 RBC 4.07 L Hgb 12.1 L Hct 36.9 L MCV 90.7 MCH 29.7 MCHC 32.8 RDW Std Deviation 45.3 RDW Coeff of Terell 13.7 Plt Count 207 MPV 9.6 Immature Gran % (Auto) 0.6 Neut % (Auto) 62.6 Lymph % (Auto) 23.1 Sanders % (Auto) 9.4 Eos % (Auto) 4.0 Baso % (Auto) 0.3 Immature Gran # (Auto) 0.06 H Neut # (Auto) 6.08 Lymph # (Auto) 2.24 Sanders # (Auto) 0.91 H Eos # (Auto) 0.39 Baso # (Auto) 0.03 PT INR APTT PTT Ratio Sodium 142 Potassium 4.0 Chloride 112 H Carbon Dioxide 24 Anion Gap 6.0 BUN 21 H Creatinine 2.33 H Est Cr Clr Drug Dosing 43.8 Est GFR ( Amer) 34.7 Est GFR (Non-Af Amer) 29.9 BUN/Creatinine Ratio 8.9 L Glucose 91 POC Glucose Estimat Average Glucose 183 Hemoglobin A1c 8.0 H Calcium 8.2 L Magnesium 2.0 Total Bilirubin AST ALT Alkaline Phosphatase Troponin I NT-Pro-B Natriuret Pep Total Protein Albumin Globulin Albumin/Globulin Ratio Triglycerides Cholesterol LDL Cholesterol, Calc VLDL Cholesterol, Calc HDL Cholesterol Cholesterol/HDL Ratio Blood Type Antibody Screen 05/22/19 05/22/19 05/22/19 05:17 07:26 09:36 WBC RBC Hgb Hct MCV MCH MCHC RDW Std Deviation RDW Coeff of Terell Plt Count MPV Immature Gran % (Auto) Neut % (Auto) Lymph % (Auto) Sanders % (Auto) Eos % (Auto) Baso % (Auto) Immature Gran # (Auto) Neut # (Auto) Lymph # (Auto) Sanders # (Auto) Eos # (Auto) Baso # (Auto) PT INR APTT PTT Ratio Sodium 141 Potassium 4.3 Chloride 112 H Carbon Dioxide 24 Anion Gap 5.0 BUN 20 H Creatinine 2.21 H Est Cr Clr Drug Dosing 46.2 Est GFR ( Amer) 37.0 Est GFR (Non-Af Amer) 31.9 BUN/Creatinine Ratio 9.0 L Glucose 94 POC Glucose 79 Estimat Average Glucose Hemoglobin A1c Calcium 7.8 L Magnesium Total Bilirubin 0.4 AST 29 ALT 30 Alkaline Phosphatase 134 H Troponin I 0.096 H* 0.073 H* NT-Pro-B Natriuret Pep Total Protein 6.7 Albumin 2.8 L Globulin 3.9 Albumin/Globulin Ratio 0.7 L Triglycerides 132 Cholesterol 90 LDL Cholesterol, Calc 31 VLDL Cholesterol, Calc 26 HDL Cholesterol 33 Cholesterol/HDL Ratio 3 Blood Type Antibody Screen Medications Administered Home Medications acetaminophen-codeine 1 tab PO UD PRN 05/22/19 [History Confirmed 05/22/19] alprazolam [Xanax] 0.25 mg PO Q8 PRN 05/22/19 [History Confirmed 05/22/19] aspirin 162 mg PO DAILY 05/22/19 [History Confirmed 05/22/19] cholecalciferol (vitamin D3) [Vitamin D3] 3,000 unit PO DAILY 05/22/19 [History Confirmed 05/22/19] colchicine [Colcrys] 0.6 mg PO DAILY PRN 05/22/19 [History Confirmed 05/22/19] cyanocobalamin (vitamin B-12) [Vitamin B-12] 1,000 mcg PO DAILY 05/22/19 [History Confirmed 05/22/19] duloxetine 60 mg PO DAILY 05/22/19 [History Confirmed 05/22/19] icosapent ethyl [Vascepa] 1 g PO BID 05/22/19 [History Confirmed 05/22/19] insulin aspart U-100 [Novolog Flexpen U-100 Insulin] 0 unit SUBCUT TIDM 05/22/19 [History Confirmed 05/22/19] insulin degludec [Tresiba FlexTouch U-200] 72 unit SUBCUT HS 05/22/19 [History Confirmed 05/22/19] isosorbide mononitrate 90 mg PO DAILY 05/22/19 [History Confirmed 05/22/19] linagliptin [Tradjenta] 5 mg PO DAILY 05/22/19 [History Confirmed 05/22/19] meclizine 12.5 mg PO Q8 PRN 05/22/19 [History Confirmed 05/22/19] metoprolol tartrate 12.5 mg PO BID 05/22/19 [History Confirmed 05/22/19] niacin 500 mg PO DAILY 05/22/19 [History Confirmed 05/22/19] prasugrel [Effient] 10 mg PO DAILY 05/22/19 [History Confirmed 05/22/19] ramipril 5 mg PO DAILY 05/22/19 [History Confirmed 05/22/19] simvastatin 20 mg PO HS 05/22/19 [History Confirmed 05/22/19] tamsulosin 0.4 mg PO DAILY 05/22/19 [History Confirmed 05/22/19] Active Medications Acetaminophen (Tylenol) 650 mg PO Q4H PRN PRN Reason: Pain or Fever Stop: 06/21/19 02:38 Acetaminophen/Codeine Phosphate (Tylenol W/Codeine #3) 1 tab PO Q4H PRN PRN Reason: Pain Stop: 06/21/19 02:38 Aspirin (Ecotrin Ectab) 162 mg PO DAILY ANNE Stop: 06/21/19 08:59 Last Admin: 05/22/19 09:34 Dose: Not Given Documented by: Dextrose (Dextrose 50%) 25 - 50 ml IV UD PRN; Protocol PRN Reason: Hypoglycemia Protocol Stop: 06/21/19 03:44 Glucagon (Glucagen) 1 mg SQ UD PRN; Protocol PRN Reason: Hypoglycemia Protocol Stop: 06/21/19 03:44 Glucose (Glucose 40%) 15 - 30 gm PO UD PRN; Protocol PRN Reason: Hypoglycemia Protocol Stop: 06/21/19 03:44 Glucose (Dex4 Glucose) 4 - 8 tabs PO UD PRN; Protocol PRN Reason: Hypoglycemia Protocol Stop: 06/21/19 03:44 Heparin Sodium/Dextrose (Heparin Sodium/Dextrose) 25,000 units in 500 mls @ 20 mls/hr IV .Q24H ANNE; Protocol Stop: 06/21/19 00:29 Last Admin: 05/22/19 10:06 Dose: 1,000 units/hr, 20 mls/hr Documented by: Insulin Aspart (Novolog Flexpen) 0 units SC ACHS ANNE Stop: 06/21/19 07:29 Last Admin: 05/22/19 07:40 Dose: Not Given Documented by: Insulin Glargine (Lantus) 72 units SQ HS [facility] Stop: 06/21/19 20:59 Isosorbide Mononitrate (Imdur Extended Rel) 90 mg PO DAILY [facility] Stop: 06/21/19 08:59 Last Admin: 05/22/19 07:48 Dose: 90 mg Documented by: Metoprolol Tartrate (Lopressor) 2.5 mg IV Q4 PRN PRN Reason: Hypertension Stop: 06/21/19 02:38 Last Admin: 05/22/19 07:33 Dose: 2.5 mg Documented by: Metoprolol Tartrate (Lopressor) 25 mg PO BID [facility] Stop: 06/21/19 08:59 Last Admin: 05/22/19 10:08 Dose: 25 mg Documented by: Miscellaneous (Carbohydrates For Hypoglycemia) 15 - 30 gm PO UD PRN PRN Reason: Hypoglycemia Treatment Stop: 06/21/19 03:44 Miscellaneous Information (Consult Glycemic Management Pharmacy) 1 ea N/A UD PRN PRN Reason: Consult Stop: 06/21/19 09:30 Morphine Sulfate (Morphine Sulfate) 2 mg IV Q30M PRN PRN Reason: Chest Pain Stop: 06/05/19 02:38 Last Admin: 05/22/19 07:58 Dose: 2 mg Documented by: Nitroglycerin (Nitrostat) 0.4 mg SL UD PRN PRN Reason: Chest Pain Stop: 06/21/19 02:38 Last Admin: 05/22/19 08:06 Dose: 0.4 mg Documented by: Ondansetron HCl (Zofran) 4 mg IV Q6H PRN PRN Reason: Nausea Stop: 06/21/19 02:38 Prasugrel (Effient) 10 mg PO DAILY ANNE Stop: 06/21/19 08:59 Last Admin: 05/22/19 10:11 Dose: 10 mg Documented by: Simvastatin (Zocor) 40 mg PO HS [facility] Stop: 06/21/19 20:59 Tamsulosin HCl (Flomax) 0.4 mg PO DAILY ANNE Stop: 06/21/19 08:59 Last Admin: 05/22/19 10:12 Dose: 0.4 mg Documented by: Vitamin D (Vitamin D3) 3,000 units PO DAILY [facility] Stop: 06/21/19 08:59 Last Admin: 05/22/19 10:12 Dose: 3,000 units Documented by: PG Care Time/CCT Total # of Minutes Spent Total Time Spent with Patient: Total time spent is greater than 50% in coordination of care (as documented) at patient's floor/unit and/or counseling patient: Critical Care Time: Yes Total Critical Care Time: 45 Resident Activity Tracking Resident Involvement: Resident Care Provided Care Provided: Adult Hospital Medicine
[2019-05-22] MEDS ORDERED: PHARMACY GLYCEMIC MGMT CONSULT PRN (09:31)
[2019-05-22] MEDS: ASPIRIN 81 MG ECTAB PO SCH (09:34)
[2019-05-22] MEDS: METOPROLOL TARTRATE 25 MG TAB PO SCH ×2 (10:08→20:12)
[2019-05-22] MEDS: PRASugrel TAB 10 MG TAB PO SCH (10:11)
[2019-05-22] MEDS: TAMSULOSIN HCL 0.4 MG CAP PO SCH (10:12)
[2019-05-22] MEDS: CHOLECALCIFEROL 1,000 UNITS TAB PO SCH (10:12)
[2019-05-22 10:18] LABS: Albumin Globulin Ratio 0.7 (0.9-2); Albumin Level 2.8 gm/dl (3.4-5.0); Bilirubin,Total 0.4 mg/dl (0.2-1); Calcium 7.8 mg/dl (8.5-10.1); Creatinine Clr Calc Pharmacy 46.2 ml/min; Est GFR (Non-African American) 31.9; Globulin 3.9 gm/dl (2.5-4.0); Potassium 4.3 mmol/L (3.5-5.1); Total Protein 6.7 gm/dl (6.4-8.2)
[2019-05-22 10:26] LABS: Troponin I 0.073 ng/ml (0-0.045)
--- NOTE | 2019-05-22 12:07 | Communication Note ---
Date of Service: May 22, 2019 Patient reassessed in room 103 of the ICU. He was eating lunch. Cardiac catheterization site of right radial access is clean dry and intact with hemost asis pin still in place. Most recent blood pressure is improved down to 145/74 on a relatively low dose of IV nitroglycerin, 12.5 mcg/min. I have discontinued his unfractioned heparin infusion order. Patient symptoms are not due to an acute intracoronary plaque rupture. I have transition him to heparin 5000 units subcu every 12 hours per I placed the order for the nitroglycerin infusion. Changes discussed with the patient's nurse at the nursing station. Patient has recurrent shortness of breath despite blood pressure control, would consider giving IV furosemide, however given his contrast exposure today, will try to avoid this for now.
--- NOTE | 2019-05-22 12:46 | Hospitalist Progress Note ---
Date of Service May 22, 2019 Assessment & Plan (1) Hypertensive emergency: developed severe substernal chest comfort/shortness of breath, diaphoresis-secondary to hypertensive urgency: SBP was more than 200 Emergent cardiac cath showed chronic occlusive coronary artery disease, no PTCA was indicated Transferred to ICU was started with IV nitro drip With improvement of blood pressure-resolution of symptoms (2) NSTEMI (non-ST elevated myocardial infarction): Secondary to demand ischemia/type II KS due to hypertensive urgency History of coronary artery disease status post PTCA LAD in 2008 Patient has been on Effient Presents with exertional chest heaviness discomfort Leading to severe shortness of breath/crushing substernal chest discomfort in the setting of hypertensive urgency Patient was on IV heparin, Underwent emergent cardiac cath by Dr. Eckert Finding in cardiac cath: LM -luminal irregularities LAD -20 to 30% ostial, diffuse 50% mid at takeoff of first septal extending past takeoff of second diagonal. 99% earlydistal and 99% stenosis as wraps around apex. Bifurcating first septal with high-grade ostial stenosis. Moderate caliber second diagonal with luminal irregularities and LAUREN-3 flow. Circumflex -moderate caliber vessel, 20 to 30% ostial. Very small OM 2 occluded with partial filling distally via left to left collaterals. Very small left PLB with 95% stenosis. RCA -dominant, patent proximal to mid stents, latemid luminal irregularities, 30 to 40% distal stenosis prior to takeoff of right PDA. LVEDP -30 Summary: 1. Severe single vessel chronic coronary artery disease -50% diffuse mid LAD, sequential 99% distal LAD lesions 2. Elevated intracardiac filling pressure IV heparin discontinued, as there was no evidence of new cardiac thrombotic event Patient is continued with outpatient antiplatelets Cardiology recommends medical management, with judicial control of blood pressure (3) CKD (chronic kidney disease) stage 3, GFR 30-59 ml/min: History of renal cell carcinoma(clear cell) status post nephrectomy CKD stage III Recent creatinine 2.2 Continue to monitor renal function closely given recent contrast exposure and cardiac cath, hypertensive urgency Nephrology consult requested IV fluid avoided given elevated left ventricular end-diastolic pressure HISTORY OF MELANOMA IN BACK Status post wide margin resection No recent recurrence as per patient CODE STATUS: Full code DVT prophylaxis: Subcu heparin Disposition: Monitor closely in ICU Subjective Patient seen at 7:45 AM Patient complaint of chest heaviness, shortness of breath, became diaphoretic Blood pressure elevated systolic in 220 Given p.o. Imdur 90 mg/p.o. Lopressor 12.5/Vasotec 20 mg Patient was also given IV lopressor 2.5 mg X1 then 5 mg Iv X1 ( total 7.5 mg IV ) SL nitro x2 4 baby aspirin pt already been IV heparin since Admission stat EKG at 7: [address]-T wave changes in V1-V6 ( suggestive of ant ischemia ) -change form EKG on 05/21/19 @ 23: 22 "CODE HEART ALERT " was called pt was taken to cardiovascular lab director emergent cardiac cath done by Dr Eckert shows chronic occlusive CAD , no PTCA was indicated pt was started on IV nitroglycerine gtt for hypertensive urgency ( possible precipitating the symptoms of unstable angina post cardiac cath pt was Transferred to ICU started on IV nitroglycerin gtt for persisted hypertensive urgency BP imrpved to 140' with significant improvement of pts symptom of SOB and chest heaviness Physical Exam Constitutional: WD/WN, vitals as above Eyes: PERRL, conjunctivae normal, anicteric sclerae ENMT: external ear and nose normal, oropharynx normal Neck: trachea midline, no thyromegaly Respiratory: normal respiratory effort, lungs clear to auscultation Cardiovascular: RRR, no murmur, no edema Gastrointestinal (Abdomen): normal bowel sounds, soft, nontender, no hepatosplenomegaly Musculoskeletal: no cyanosis or clubbing, extremities motor strength 5/5 Skin: no rashes, warm and dry Neurologic: PERRL, EOMI, accommodation nl, no face palsy, no dysarthria Results & Data Vital Signs (Past 12 Hours) Vital Signs Temp Pulse Pulse Resp BP BP BP 05/22/19 12:35 80 16 160/86 H 05/22/19 12:30 80 18 160/86 H 05/22/19 12:20 78 18 05/22/19 12:15 78 19 137/93 05/22/19 12:10 82 18 05/22/19 12:02 82 16 142/69 H 05/22/19 12:00 79 79 14 142/69 H 05/22/19 11:50 78 20 05/22/19 11:45 78 23 133/78 05/22/19 11:40 82 80 18 05/22/19 11:30 85 19 161/85 H 05/22/19 11:20 86 19 05/22/19 11:19 81 18 145/74 H 05/22/19 11:15 82 18 145/74 H 05/22/19 11:00 82 21 161/84 H 05/22/19 10:45 84 17 145/91 H 05/22/19 10:40 160/85 H 05/22/19 10:30 85 21 160/85 H 05/22/19 10:17 82 24 05/22/19 10:16 84 23 154/93 H 05/22/19 10:15 83 84 24 154/93 H 05/22/19 10:01 88 21 150/127 H 05/22/19 10:00 87 26 H 05/22/19 09:45 82 20 156/89 H 05/22/19 09:30 83 23 143/89 H 05/22/19 09:15 84 19 152/101 H 05/22/19 09:05 86 14 05/22/19 09:03 36.7 C 16 149/109 H 05/22/19 08:00 99 H 34 H 05/22/19 07:40 87 05/22/19 07:31 36.4 C L 101 H 20 214/113 H 05/22/19 03:51 174/94 H 05/22/19 03:29 85 198/93 H 05/22/19 02:53 36.8 C 88 18 193/98 H 05/22/19 01:50 36.7 C 101 H 22 202/89 H 05/22/19 01:35 83 18 179/94 H 05/22/19 01:04 86 18 178/89 H 05/22/19 00:57 88 189/93 H Pulse Ox 05/22/19 12:35 100 05/22/19 12:30 99 05/22/19 12:20 99 05/22/19 12:15 100 05/22/19 12:10 100 05/22/19 12:02 99 05/22/19 12:00 100 05/22/19 11:50 98 05/22/19 11:45 05/22/19 11:40 98 05/22/19 11:30 99 05/22/19 11:20 99 05/22/19 11:19 99 05/22/19 11:15 99 05/22/19 11:00 99 05/22/19 10:45 99 05/22/19 10:40 05/22/19 10:30 98 05/22/19 10:17 99 05/22/19 10:16 99 05/22/19 10:15 98 05/22/19 10:01 98 05/22/19 10:00 98 05/22/19 09:45 98 05/22/19 09:30 98 05/22/19 09:15 98 05/22/19 09:05 99 05/22/19 09:03 100 05/22/19 08:00 99 05/22/19 07:40 05/22/19 07:31 92 05/22/19 03:51 05/22/19 03:29 05/22/19 02:53 97 05/22/19 01:50 96 05/22/19 01:35 96 05/22/19 01:04 96 05/22/19 00:57
[2019-05-22 13:16] LABS: BUN Creatinine Ratio 9.5 (10-20); Creatinine Clr Calc Pharmacy 44.8 ml/min; Est GFR (African American) 35.6; Est GFR (Non-African American) 30.7; Potassium 4.4 mmol/L (3.5-5.1)
[2019-05-22] MEDS: NITROGLYCERIN/D5W 100MCG/ML 250 ML IV SCH (14:08)
[2019-05-22] MEDS: ACETAMINOPHEN 325 MG TAB PO PRN (14:21)
[2019-05-22 14:52] LABS: Troponin I 0.067 ng/ml (0-0.045)
--- NOTE | 2019-05-22 15:17 | Pharmacy Report ---
Glycemic Control Consultation - Date of Service May 22, 2019 - Scope Scope: Glycemic Pharmacist consulted for glycemic control and to write orders per [facility] inpatient glycemic control protocol - Objective Weight: 111.8 kg Accuchecks BSG (last 24hrs): 05/21/19 05/22/19 05/22/19 23:31 05:17 07:26 Glucose 184 H 91 POC Glucose 79 05/22/19 05/22/19 05/22/19 09:36 12:24 12:39 Glucose 94 154 H POC Glucose 147 H Laboratory Data (last 24hrs): 05/21/19 05/22/19 05/22/19 23:31 05:17 09:36 Potassium 4.2 4.0 4.3 Carbon Dioxide 25 24 24 Anion Gap 7.0 6.0 5.0 Creatinine 2.49 H 2.33 H 2.21 H Est Cr Clr Drug Dosing 41.2 43.8 46.2 05/22/19 12:39 Potassium 4.4 Carbon Dioxide 25 Anion Gap 4.0 Creatinine 2.28 H Est Cr Clr Drug Dosing 44.8 HbA1c: Hemoglobin A1c 8.0 % (4.5-5.6) H 05/22/19 05:17 - Recent Pertinent Medications Outpatient Anti-diabetic Regimen: * Tresiba 72 units SC HS * Novolog units TIDM plus SSI * Linagliptin 5 mg po daily * A1c = 8.0% on 05/22/19 The patient is currently receiving: * Basal insulin: none yet as inpatient. Likely received home Tresiba 72 units HS on 05/21 prior to arrival. * Correctional Insulin: Novolog Correction per scale ACHS Goal Range: Low 120 mg/dL - High 160 mg/dL Correction Factor: 30 mg/dL/unit * Prandial insulin: Per carb ratio of 1 unit per 10 grams CHO consumed * Oral Agents: on hold for admission Risk Factors for Insulin Resistance: * IVF: nitroglycerin drip mixed in dextrose * Recent Surgery: POD 0 s/p cardiac cath * Diet: T2DM - Assessment & Plan Assessment & Plan: ASSESSMENT: * 59 yo M with T2DM admitted with NSTEMI and s/p cardiac cath earlier this AM * BSG's have ranged 79-154 mg/dL with no insulin administered yet as inpatient. BSG's likely still affected by home Tresiba patient would likely have administered last night * Outpatient regimen significantly weighted basal insulin (60%). Will reduce as inpatient for now as po intake has been negligible thus far today and some BSG's have been below goal. * Plan to provide additional Lantus tomorrow AM if lower dose scheduled for tonight contributes to AM fasting BSG above goal range * Will keep Novolog CHO ratio loose as suspect higher outpatient Tresiba dose may cover some prandial needs and therefore tighter CHO ratio may contribute to hypoglycemia. OK to tighten correction factor to weight-based moderate stress estimate. Will add two overnight checks to monitor for hyperglycemia in response to lower basal dose scheduled tonight and provide supplemental Novolog if needed * Plan to tighten CHO ratio tomorrow, but will depend on trend in BSG in response to insulin doses administered today PLAN FOR INPATIENT GLYCEMIC CONTROL: * Holding outpatient oral diabetes medications * Basal insulin: Lantus HS based on BSG as follows * 36 units for BSG less than 180 mg/dL * 50 units for BSG 180 mg/dL or greater * Bolus insulin * NovoLog per scale ACHS or Q6hrs while NPO * Goal Range: Low 120 mg/dL - High 150 mg/dL * Correction Factor: 20 mg/dL/unit * Nutritional / Prandial insulin per carb ratio of 1 unit per 10 grams CHO consumed * Please note that the plan above was derived based on current level of insulin resistance and hospital stress. These recommendations are appropriate for inpatient admission only. Plan of care upon discharge will need to be reassessed to avoid potential outpatient hypo/hyperglycemia. Thank you.
[2019-05-22 16:13] LABS: Appearance Urine Clear (Clear); Bacteria Urine Automated Negative (Negative); Bilirubin Urine Negative (Negative); Blood Urine Negative (Negative); Color Urine Yellow; Glucose Urine UA Negative (Negative); Ketones Urine Negative (Negative); Leukocyte Esterase Urine Negative (Negative); Nitrite Urine Negative (Negative); Protein Urine 2+ (Negative); RBC Urine Automated 0-4 /hpf (0-4); Specific Gravity Urine 1.024 (1.000-1.030); Urobilinogen Urine Negative (Negative); pH Urine 5.5 (4.5-7.5)
--- NOTE | 2019-05-22 16:46 | Nephrology Consultation ---
Date of Consultation May 22, 2019 Assessment & Plan (1) Hypertensive emergency: -continue lopressor 25 mg bid, ntg gtt, prn metoprolol 2.5 mg IV -l recommend adding nicardipine gtt starting 5 mg /hr and titrate to SBP 140- 150s; would NOT take bp lower than this -wean off NTG as tolerated, as nicardipine up titrated -would not add diuretic at this time given that he just had IV contrast and is already at high risk for KELLI -prefer short acting IV to long acting po antihypertensives in general at this time Present on Admission?: Yes (2) NSTEMI (non-ST elevated myocardial infarction): per cardiology and primary service; for medical mgt Present on Admission?: Yes (3) CKD (chronic kidney disease) stage 3, GFR 30-59 ml/min: baseline creatinine 2.1-2.3; high risk for KELLI on CKD after cath and given lability of bp in setting of vol OL and solitary kidney bland urine sediment on presentation w/ exception of proteinuria; pt w/ 100-300 mg albuminuria past few OP checks w/ PCP 2017 - May 2019 -hold ACEI given risk for kelli which will persist 48 hrs after IV dye exposure -cannot hydrate given elevated bp but if bp better controlled (consistently in 140-150s systolic) might consider low rate of hydration> 1/2 NS w/ 75 mEq/L sodium bicarb or normosol at 80 ml/hr for 6-8 hrs >> these IVF given mild hyperchloremia, already mildly elevated bicarbonate -daily bmp Present on Admission?: Yes (4) Solitary kidney, 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; increases risk for KELLI, for OP proteinuria Present on Admission?: Yes History of Present Illness Reason for Consultation: KELLI on CKD, HTN emergency Requesting Physician: Dr Gomez Attending Physician: Marcie Gomez MD History of Present Illness 59 y/o M w/ solitary kidney and baseline creatinine low 2's admitted today for HTN emergency after presenting w/ exertional SOB, CP. PMH of DM on insulin, HTN, CAD s/p past stent, COLIN not using CPAP, CKD 3-4 w/ baseline creatinine 2.1- 2.3 and w/ solitary kidney s/p 2011 radical nephrectomy; also s/p 06/2018 malignant melanoma excision, prostatic hypertrophy, peripheral neruopathy. Pt also fell in shower 1 wk ago, noted on presentation to have R rib frxs. His p resenting sbp was in 180-190s. His CP and dyspnea had resolved after ER care when rn diabetes evaluated the pt, but then he had recurrent chest pain and dyspnea at about 0800 today, needing bipap and for which heart alert was called. He went to the labor/excavator at about 9 AM and was found to have severe and extensive LAD disease not amenable to stent as well as volume overload. Medical mgt was recommended. his OP 12.5 mg daily lopressor dose was doubled to 25 mg bid and his 5 mg daily ramipril was held. He had 12.5 mg of lopressor this am, then additional doses IV and po through the day. when I evaluated him this afternoon he was chest pain free, not sob, no complaints. His SBP was in 180s. He was on NTG gtt in addition to B zeke. His presenting creatinine was 2.4 today. Denies nsaid use in tx of rib or other pain. He follows w/ [facility]; admits has not seen them for long time; [facility] [place] suggest last seen by them 12/2017. Allergies Allergy/AdvReac Type Severity Reaction Status Date / Time cucumber Allergy Severe reports Verified 05/22/19 00:56 rash/hives NSAIDS (Non-Steroidal AdvReac Severe to avoid Verified 05/22/19 00:56 Anti-Inflamma due to poor renal fxn oseltamivir [From Tamiflu] AdvReac Unknown Confusion Verified 05/22/19 02:26 Home Medications Home Medications Medication Instructions Recorded Confirmed Type acetaminophen-codeine 1 tab PO UD PRN 05/22/19 05/22/19 History alprazolam [Xanax] 0.25 mg PO Q8 PRN 05/22/19 05/22/19 History aspirin 162 mg PO DAILY 05/22/19 05/22/19 History cholecalciferol (vitamin D3) 3,000 unit PO DAILY 05/22/19 05/22/19 History [Vitamin D3] colchicine [Colcrys] 0.6 mg PO DAILY PRN 05/22/19 05/22/19 History cyanocobalamin (vitamin B-12) 1,000 mcg PO DAILY 05/22/19 05/22/19 History [Vitamin B-12] duloxetine 60 mg PO DAILY 05/22/19 05/22/19 History icosapent ethyl [Vascepa] 1 g PO BID 05/22/19 05/22/19 History insulin aspart U-100 [Novolog 0 unit SUBCUT TIDM 05/22/19 05/22/19 History Flexpen U-100 Insulin] insulin degludec [Tresiba 72 unit SUBCUT HS 05/22/19 05/22/19 History FlexTouch U-200] isosorbide mononitrate 90 mg PO DAILY 05/22/19 05/22/19 History linagliptin [Tradjenta] 5 mg PO DAILY 05/22/19 05/22/19 History meclizine 12.5 mg PO Q8 PRN 05/22/19 05/22/19 History metoprolol tartrate 12.5 mg PO BID 05/22/19 05/22/19 History niacin 500 mg PO DAILY 05/22/19 05/22/19 History prasugrel [Effient] 10 mg PO DAILY 05/22/19 05/22/19 History ramipril 5 mg PO DAILY 05/22/19 05/22/19 History simvastatin 20 mg PO HS 05/22/19 05/22/19 History tamsulosin 0.4 mg PO DAILY 05/22/19 05/22/19 History Patient History Medical History CKD (chronic kidney disease) stage 3, GFR 30-59 ml/min Heart attack Melanoma s/p 06/2018 excision Surgical History H/O left radical nephrectomy 2011 for renal cell carcinoma History of intravascular stent placement 2008, 2009 Family History Father Coronary heart disease Brother Diabetes Social History Preferred Language: [place] Communication Ability: Effective Beliefs That Will Affect Care: None Current Living Situation: Alone Feels Safe at Home: Yes Safety Concerns: Feels Safe At This Time Smoking Status: Never smoker Hx Alcohol Use: Yes Hx Substance Use: No Review of Systems Review of Systems: All systems reviewed & are unremarkable except as noted in HPI & below Constitutional: + fatigue, + anorexia and + daytime sleepiness; no body aches and no weakness Eyes: no worsening vision Ear, Nose, Mouth, Throat: no dry mouth Respiratory: as per Subjective / HPI; no cough, no dyspnea, no dyspnea on exertion (resolved for now) and no pain on inspiration Cardiovascular: as per Subjective / HPI; no chest pain, no dyspnea on exertion, no orthopnea and no edema Gastrointestinal: no abdominal pain, no nausea, no vomiting and no diarrhea/loose stools Genitourinary: no dysuria, no urinary frequency, no urinary hesitancy and no hematuria Musculoskeletal: no back pain and no swelling + R rib pain Integumentary: no rash and no non-healing lesions Neurologic: no falls and no confusion Psychiatric: no behavioral changes Endocrine: + fatigue Hematologic / Lymphatic: no easy bleeding Physical Exam Constitutional: well developed, well nourished and + obese on 02NC, dosing but arouseable, oriented x 3 but middling historian Eyes: EOM intact bilaterally ENMT: Ears: no external ear abnormality Nose: no external nose abnormality Mouth: + dry oral mucous membranes Neck: no nuchal rigidity Respiratory: normal respiratory effort; no respiratory distress and no labored breathing Auscultation: + diminished lung sounds and + crackles (R base); no wheezes Cardiovascular: RRR, no murmur, no edema Gastrointestinal (Abdomen): Inspection/Auscultation: normal bowel sounds Percussion/Palpation: abdomen soft; abdomen nontender Musculoskeletal: Extremities: strength 5/5 throughout (but struggles to maneuver for exam) Skin: no rashes, warm and dry Neurologic: huffman, fluent though limited speech, no tremor Psychiatric: Orientation: alert and oriented x 3 Eye Contact: + fair eye contact Speech: normal rate/rhythm/volume of speech (but limited amount) Affect: + blunted affect Genitourinary: no manzanares Results & Data Vital Signs (Past 12 Hours) Vital Signs Temp Pulse Pulse Resp BP BP BP 05/22/19 16:18 63 20 180/104 H 05/22/19 15:45 74 18 160/108 H 05/22/19 15:08 78 16 169/95 H 05/22/19 14:28 78 16 160/90 H 05/22/19 14:15 77 21 160/90 H 05/22/19 14:00 76 19 164/80 H 05/22/19 13:45 79 22 158/92 H 05/22/19 13:44 141/98 H 05/22/19 13:30 77 18 141/98 H 05/22/19 13:15 77 17 131/81 05/22/19 13:00 77 18 150/87 H 05/22/19 12:45 80 21 150/86 H 05/22/19 12:35 80 16 160/86 H 05/22/19 12:30 80 18 160/86 H 05/22/19 12:20 78 18 05/22/19 12:15 78 19 137/93 05/22/19 12:10 82 18 05/22/19 12:02 82 16 142/69 H 05/22/19 12:00 79 79 14 142/69 H 05/22/19 11:50 78 20 05/22/19 11:45 78 23 133/78 05/22/19 11:40 82 80 18 05/22/19 11:30 85 19 161/85 H 05/22/19 11:20 86 19 05/22/19 11:19 81 18 145/74 H 05/22/19 11:15 82 18 145/74 H 05/22/19 11:00 82 21 161/84 H 05/22/19 10:45 84 17 145/91 H 05/22/19 10:40 160/85 H 05/22/19 10:30 85 21 160/85 H 05/22/19 10:17 82 24 05/22/19 10:16 84 23 154/93 H 05/22/19 10:15 83 84 24 154/93 H 05/22/19 10:01 88 21 150/127 H 05/22/19 10:00 87 26 H 05/22/19 09:45 82 20 156/89 H 05/22/19 09:30 83 23 143/89 H 05/22/19 09:15 84 19 152/101 H 05/22/19 09:05 86 14 05/22/19 09:03 36.7 C 16 149/109 H 05/22/19 08:00 99 H 34 H 05/22/19 07:40 87 05/22/19 07:31 36.4 C L 101 H 20 214/113 H Pulse Ox 05/22/19 16:18 99 05/22/19 15:45 99 05/22/19 15:08 100 05/22/19 14:28 100 05/22/19 14:15 100 05/22/19 14:00 100 05/22/19 13:45 100 05/22/19 13:44 05/22/19 13:30 99 05/22/19 13:15 99 05/22/19 13:00 100 05/22/19 12:45 99 05/22/19 12:35 100 05/22/19 12:30 99 05/22/19 12:20 99 05/22/19 12:15 100 05/22/19 12:10 100 05/22/19 12:02 99 05/22/19 12:00 100 05/22/19 11:50 98 05/22/19 11:45 05/22/19 11:40 98 05/22/19 11:30 99 05/22/19 11:20 99 05/22/19 11:19 99 05/22/19 11:15 99 05/22/19 11:00 99 05/22/19 10:45 99 05/22/19 10:40 05/22/19 10:30 98 05/22/19 10:17 99 05/22/19 10:16 99 05/22/19 10:15 98 05/22/19 10:01 98 05/22/19 10:00 98 05/22/19 09:45 98 05/22/19 09:30 98 05/22/19 09:15 98 05/22/19 09:05 99 05/22/19 09:03 100 05/22/19 08:00 99 05/22/19 07:40 05/22/19 07:31 92 Laboratory Results 05/22/19 05:17 05/22/19 12:39 Diagnostic Findings cxr CLINICAL HISTORY: sob, recent fall right rib pain COMPARISON STUDY: No previous studies for comparison. FINDINGS: Fractures anterior right seventh eighth and ninth ribs. Old fracture right 10th rib. No evidence for pneumothorax. Remaining bony structures are unremarkable. IMPRESSION: 1. Fracture anterior right seventh through ninth ribs. 2. Old fracture right 10th rib. 3. No evidence for pneumothorax. TTE today mild CLVH, EF 45% w/o WMA Gr II diastolic dysfunction no clinically significant valvular abnormalities
[2019-05-22] MEDS ORDERED: NIFEdipine 10 MG CAP PO STA (17:03)
[2019-05-22] MEDS: INSULIN GLARGINE 100 UNIT/ML VIAL SC SCH (20:12)
[2019-05-22] MEDS: SIMVASTATIN 20 MG TAB PO SCH (20:13)
[2019-05-22] MEDS: HEPARIN SOD 5,000 UNIT/0.5 ML VIAL SQ SCH (20:13)
[2019-05-22] MEDS ORDERED: INSULIN GLARGINE 100 UNIT/ML VIAL SQ SCH (21:00)
[2019-05-22] MEDS ORDERED: SODIUM BICARBONATE 8.4% 50 MEQ in SODIUM CHLORIDE 0.45 % 1,000 ML IV SCH (21:00)
[2019-05-22] MEDS ORDERED: SIMVASTATIN 20 MG TAB PO SCH (21:00)
[2019-05-23] MEDS: INSULIN ASPART 100 UNITS/ML 3 ML PEN SC SCH ×6 (00:03→20:16)
[2019-05-23] MEDS: NITROGLYCERIN/D5W 100MCG/ML 250 ML IV SCH (03:56)
[2019-05-23 06:15] LABS: Hematocrit (blood only) 35.1 % (42-52); Hemoglobin 11.6 g/dL (14.0-18.0); Mean Corpuscular Hemoglobin 29.6 pg (25-34); Mean Corpuscular Volume 89.5 fL (80-100); Mean Platelet Volume 9.2 fL (7.4-10.4); Platelet Count 235 K/uL (130-400); RDW Coefficient of Variation 13.4 % (11.5-14.5); RDW Standard Deviation 44.2 fL (36.4-46.3); Red Blood Count 3.92 M/uL (4.7-6.1); White Blood Count 11.57 K/uL (4.8-10.8)
--- NOTE | 2019-05-23 06:49 | Critical Care Progress Note ---
Date of Service May 23, 2019 Assessment & Plan (1) NSTEMI (non-ST elevated myocardial infarction): Reason Critically Ill: 59yo with PMHx significant for CAD s/p stent placement, HTN, HLD, Diabetes, COLIN with hypertensive emergency and is s/p cardiac cath 05/22/19 for NSTEMI. NEURO -CAM ICU Negative -IV Morphine 2mg [id number] PRN for pain CV -Pt with CAD s/p historical stent placement, HTN, HLD, Diabetes, COLIN NOT on CPAP. -Cardiac cath 05/22/19 for possible NSTEMI. NSTEMI -Pt with progressive SOB and chest pain 05/22, associated with SBP elevation >180 -s/p cardiac cath 05/22/19: LAD with 50% diffuse mid stenosis and sequential 99% distal lesions -EKG 05/23: NSR, heart rate of 91, qtc increased at 472 -Echo 04/22: mild conc LVH, decreased systolic function with EF of 45%, Grade II diastolic dysfunction. -Trops downtrended, now plateaued: 0.168 to 0.096 to 0.073 to 0.067 to 0.071 -heparin and nitroglycerin gtt have since been D/Jhon -continue O2 supplementation via NC; will continue to wean -continue aspirin, prasugrel administration -continue home statin, Imdur Hypertensive Emergency -Pt with persistent elevated SBP >180 with associated headache, previous chest pain and SOB -Continue Lopressor 25mg BID with PRN IV Lopressor 2.5mg for SBP>160 -Tapered off of nitroglycerin gtt on 05/22. Was on nicardipine gtt with SBP goal 140-150, currently discontinued. -Started on Enalapril 20mg which is the equivalent of the home ramipril 5mg PO daily Hx of HLD, Angina -continue home statin, imdur PULM -Currently on 2L NC; continue to wean -Counseled on likely need for CPAP given Hx of COLIN: pt with Hx of incomplete sleep study. -Chest XR 05/21- no evidence of pneumothorax, fractures of 7-9th ribs. -States fractures noted on xray are related to a bathroom fall last week. ABD/GI -on heart healthy diet /RENAL -Hx of nephrectomy, CKD, BPH; has one kidney currently. -at baseline Cr, even improved at 2.18 despite contrast administration for cardiac cath -will continue to monitor ENDO -Hx of diabetes Type II -Hemoglobin A1C of 8.0 noted on May 21 -ICU protocol for hyperglycemia ID -WBC increased this AM >11, 000 -likely stress induced. -repeat CBC in the AM recommended to trend. HEME -mild anemia -No concerns currently LINES: 2 PIVs DVT Prophylaxis: Heparin FULL CODE DISPO: ICU (2) Admitted to intensive care unit: (3) Hypertensive emergency: Supervising Physician Co-Signing Physician Notes Dr. Jeong was the resident-physician during care of patient. I separately evaluated patient for cronin portions of the history and the exam. I was present during the critical portion of medical decision making, and I discussed the case with the resident. I generally agree with the findings and plan except for any additions/exceptions noted. Patient was on nicardipine drip this morning. We have stopped his nicardipine drip and will monitor his blood pressure. We we will start him on enalapril 20 mg which is equivalent to his home dose SHARI inhibitor. We are continuing his long-acting nitrate as well. He is currently on metoprolol 25 mg twice daily as well. He has not had any further episodes of headaches or chest pain overnight. He tolerated CPAP only for a brief period of time overnight. I think he is safe to be transferred to the floor today with telemetry. Subjective Pt states he feels better this AM. No longer has the headache or sweats. States he used the CPAP for a few hours overnight. Also denies fevers, chills, night sweats, blurry vision, cough, runny nose, chest pain, SOB, palpitations, abd pain, N/V, diarrhea or constipation, swelling in hands or feet, or numbness or tingling. Review of Systems Review of Systems: All systems reviewed & are unremarkable except as noted in HPI & below Physical Exam Physical Exam: General: Alert, oriented. No acute distress, sitting up in bed chatting with friend at bedside. Skin: Healed scar on right upper back Psych: Appropriate mood and affect Neuro: No gross deficits HEENT: NC/AT, PERRLA, EOMI, oropharynx moist. Chest: Nontender to palpation. CV: RRR, Normal s1, s2. No murmurs appreciated Resp: No increased effort of breathing. Some faint crackles noted at the bases bilaterally. Abdomen: Soft, nontender. No guarding. Extremities: No edema in lower extremities bilaterally. Results & Data Vital Signs (Past 12 Hours) Vital Signs Temp Pulse Resp BP Pulse Ox 05/23/19 06:00 91 H 14 151/78 H 97 05/23/19 05:00 90 27 H 153/80 H 100 05/23/19 04:00 36.6 C 92 H 18 156/84 H 97 05/23/19 03:21 105 H 18 97 05/23/19 03:15 82 26 H 133/74 97 05/23/19 03:00 84 24 161/75 H 97 05/23/19 02:00 82 23 145/69 H 97 05/23/19 01:00 77 16 146/75 H 98 05/23/19 00:00 36.5 C 79 16 149/76 H 99 05/22/19 23:00 76 15 133/73 98 05/22/19 22:03 77 16 96 05/22/19 22:00 76 19 138/73 97 05/22/19 21:00 86 19 134/76 99 05/22/19 20:00 36.7 C 80 16 126/68 97 05/22/19 19:00 90 18 128/67 97 05/22/19 18:50 85 19 97 Laboratory Results Laboratory Results - last 24 hr 05/22/19 05/22/19 05/22/19 07:26 09:36 12:01 WBC RBC Hgb Hct MCV MCH MCHC RDW Std Deviation RDW Coeff of Terell Plt Count MPV Sodium 141 Potassium 4.3 Chloride 112 H Carbon Dioxide 24 Anion Gap 5.0 BUN 20 H Creatinine 2.21 H Est Cr Clr Drug Dosing 46.2 Est GFR ( Amer) 37.0 Est GFR (Non-Af Amer) 31.9 BUN/Creatinine Ratio 9.0 L Glucose 94 POC Glucose 79 Calcium 7.8 L Total Bilirubin 0.4 AST 29 ALT 30 Alkaline Phosphatase 134 H Troponin I 0.073 H* Total Protein 6.7 Albumin 2.8 L Globulin 3.9 Albumin/Globulin Ratio 0.7 L Triglycerides 132 Cholesterol 90 LDL Cholesterol, Calc 31 VLDL Cholesterol, Calc 26 HDL Cholesterol 33 Cholesterol/HDL Ratio 3 Urine Color Urine Appearance Urine pH Ur Specific [place] Urine Protein Urine Glucose (UA) Urine Ketones Urine Blood Urine Nitrite Urine Bilirubin Urine Urobilinogen Ur Leukocyte Esterase Urine WBC (Auto) Urine RBC (Auto) U Hyaline Cast (Auto) U Epithel Cells (Auto) Urine Bacteria (Auto) Nasal Screen MRSA (PCR) Positive A 05/22/19 05/22/19 05/22/19 12:24 12:39 15:30 WBC RBC Hgb Hct MCV MCH MCHC RDW Std Deviation RDW Coeff of Terell Plt Count MPV Sodium 141 Potassium 4.4 Chloride 112 H Carbon Dioxide 25 Anion Gap 4.0 BUN 22 H Creatinine 2.28 H Est Cr Clr Drug Dosing 44.8 Est GFR ( Amer) 35.6 Est GFR (Non-Af Amer) 30.7 BUN/Creatinine Ratio 9.5 L Glucose 154 H POC Glucose 147 H Calcium 8.0 L Total Bilirubin AST ALT Alkaline Phosphatase Troponin I 0.067 H* Total Protein Albumin Globulin Albumin/Globulin Ratio Triglycerides Cholesterol LDL Cholesterol, Calc VLDL Cholesterol, Calc HDL Cholesterol Cholesterol/HDL Ratio Urine Color Yellow Urine Appearance Clear Urine pH 5.5 Ur Specific [place] 1.024 Urine Protein 2+ H Urine Glucose (UA) Negative Urine Ketones Negative Urine Blood Negative Urine Nitrite Negative Urine Bilirubin Negative Urine Urobilinogen Negative Ur Leukocyte Esterase Negative Urine WBC (Auto) 1-5 Urine RBC (Auto) 0-4 U Hyaline Cast (Auto) 1-5 U Epithel Cells (Auto) 5-10 H Urine Bacteria (Auto) Negative Nasal Screen MRSA (PCR) 05/22/19 05/22/19 05/22/19 16:15 17:12 20:08 WBC RBC Hgb Hct MCV MCH MCHC RDW Std Deviation RDW Coeff of Terell Plt Count MPV Sodium Potassium Chloride Carbon Dioxide Anion Gap BUN Creatinine Est Cr Clr Drug Dosing Est GFR ( Amer) Est GFR (Non-Af Amer) BUN/Creatinine Ratio Glucose POC Glucose 111 H 143 H Calcium Total Bilirubin AST ALT Alkaline Phosphatase Troponin I 0.071 H* Total Protein Albumin Globulin Albumin/Globulin Ratio Triglycerides Cholesterol LDL Cholesterol, Calc VLDL Cholesterol, Calc HDL Cholesterol Cholesterol/HDL Ratio Urine Color Urine Appearance Urine pH Ur Specific [place] Urine Protein Urine Glucose (UA) Urine Ketones Urine Blood Urine Nitrite Urine Bilirubin Urine Urobilinogen Ur Leukocyte Esterase Urine WBC (Auto) Urine RBC (Auto) U Hyaline Cast (Auto) U Epithel Cells (Auto) Urine Bacteria (Auto) Nasal Screen MRSA (PCR) 05/22/19 05/23/1905/23/19 23:45 03:46 06:00 WBC 11.57 H RBC 3.92 L Hgb 11.6 L Hct 35.1 L MCV 89.5 MCH 29.6 MCHC 33.0 RDW Std Deviation 44.2 RDW Coeff of Terell 13.4 Plt Count 235 MPV 9.2 Sodium Potassium Chloride Carbon Dioxide Anion Gap BUN Creatinine Est Cr Clr Drug Dosing Est GFR ( Amer) Est GFR (Non-Af Amer) BUN/Creatinine Ratio Glucose POC Glucose 127 H 73 Calcium Total Bilirubin AST ALT Alkaline Phosphatase Troponin I Total Protein Albumin Globulin Albumin/Globulin Ratio Triglycerides Cholesterol LDL Cholesterol, Calc VLDL Cholesterol, Calc HDL Cholesterol Cholesterol/HDL Ratio Urine Color Urine Appearance Urine pH Ur Specific [place] Urine Protein Urine Glucose (UA) Urine Ketones Urine Blood Urine Nitrite Urine Bilirubin Urine Urobilinogen Ur Leukocyte Esterase Urine WBC (Auto) Urine RBC (Auto) U Hyaline Cast (Auto) U Epithel Cells (Auto) Urine Bacteria (Auto) Nasal Screen MRSA (PCR) 05/23/19 05/23/19 06:00 07:46 WBC RBC Hgb Hct MCV MCH MCHC RDW Std Deviation RDW Coeff of Terell Plt Count MPV Sodium 140 Potassium 4.1 Chloride 109 H Carbon Dioxide 24 Anion Gap 6.0 BUN 25 H Creatinine 2.18 H Est Cr Clr Drug Dosing 46.9 Est GFR ( Amer) 37.6 Est GFR (Non-Af Amer) 32.4 BUN/Creatinine Ratio 11.5 Glucose 181 H POC Glucose 184 H Calcium 8.4 L Total Bilirubin AST ALT Alkaline Phosphatase Troponin I Total Protein Albumin Globulin Albumin/Globulin Ratio Triglycerides Cholesterol LDL Cholesterol, Calc VLDL Cholesterol, Calc HDL Cholesterol Cholesterol/HDL Ratio Urine Color Urine Appearance Urine pH Ur Specific [place] Urine Protein Urine Glucose (UA) Urine Ketones Urine Blood Urine Nitrite Urine Bilirubin Urine Urobilinogen Ur Leukocyte Esterase Urine WBC (Auto) Urine RBC (Auto) U Hyaline Cast (Auto) U Epithel Cells (Auto) Urine Bacteria (Auto) Nasal Screen MRSA (PCR) Medications Administered Home Medications acetaminophen-codeine 1 tab PO UD PRN 05/22/19 [History Confirmed 05/22/19] alprazolam [Xanax] 0.25 mg PO Q8 PRN 05/22/19 [History Confirmed 05/22/19] aspirin 162 mg PO DAILY 05/22/19 [History Confirmed 05/22/19] cholecalciferol (vitamin D3) [Vitamin D3] 3,000 unit PO DAILY 05/22/19 [History Confirmed 05/22/19] colchicine [Colcrys] 0.6 mg PO DAILY PRN 05/22/19 [History Confirmed 05/22/19] cyanocobalamin (vitamin B-12) [Vitamin B-12] 1,000 mcg PO DAILY 05/22/19 [History Confirmed 05/22/19] duloxetine 60 mg PO DAILY 05/22/19 [History Confirmed 05/22/19] icosapent ethyl [Vascepa] 1 g PO BID 05/22/19 [History Confirmed 05/22/19] insulin aspart U-100 [Novolog Flexpen U-100 Insulin] 0 unit SUBCUT TIDM 05/22/19 [History Confirmed 05/22/19] insulin degludec [Tresiba FlexTouch U-200] 72 unit SUBCUT HS 05/22/19 [History Confirmed 05/22/19] isosorbide mononitrate 90 mg PO DAILY 05/22/19 [History Confirmed 05/22/19] linagliptin [Tradjenta] 5 mg PO DAILY 05/22/19 [History Confirmed 05/22/19] meclizine 12.5 mg PO Q8 PRN 05/22/19 [History Confirmed 05/22/19] metoprolol tartrate 12.5 mg PO BID 05/22/19 [History Confirmed 05/22/19] niacin 500 mg PO DAILY 05/22/19 [History Confirmed 05/22/19] prasugrel [Effient] 10 mg PO DAILY 05/22/19 [History Confirmed 05/22/19] ramipril 5 mg PO DAILY 05/22/19 [History Confirmed 05/22/19] simvastatin 20 mg PO HS 05/22/19 [History Confirmed 05/22/19] tamsulosin 0.4 mg PO DAILY 05/22/19 [History Confirmed 05/22/19] Active Medications Acetaminophen (Tylenol) 650 mg PO Q4H PRN PRN Reason: Pain or Fever Stop: 06/21/19 02:38 Last Admin: 05/22/19 14:21 Dose: 650 mg Documented by: Acetaminophen/Codeine Phosphate (Tylenol W/Codeine #3) 1 tab PO Q4H PRN PRN Reason: Pain Stop: 06/21/19 02:38 Aspirin (Ecotrin Ectab) 162 mg PO DAILY ANNE Stop: 06/21/19 08:59 Last Admin: 05/23/19 07:49 Dose: 162 mg Documented by: Dextrose (Dextrose 50%) 25 - 50 ml IV UD PRN; Protocol PRN Reason: Hypoglycemia Protocol Stop: 06/21/19 03:44 Glucagon (Glucagen) 1 mg SQ UD PRN; Protocol PRN Reason: Hypoglycemia Protocol Stop: 06/21/19 03:44 Glucose (Glucose 40%) 15 - 30 gm PO UD PRN; Protocol PRN Reason: Hypoglycemia Protocol Stop: 06/21/19 03:44 Glucose (Dex4 Glucose) 4 - 8 tabs PO UD PRN; Protocol PRN Reason: Hypoglycemia Protocol Stop: 06/21/19 03:44 Heparin Sodium (Porcine) (Heparin Sodium (Porcine)) 5,000 units SQ Q12 ANNE Stop: 06/21/19 20:59 Last Admin: 05/23/19 07:49 Dose: 5,000 units Documented by: Nitroglycerin/Dextrose (Nitroglycerin/D5w 100 Mcg/Ml) 250 mls @ 0 mls/hr IV .Q0M ANNE; Protocol Stop: 06/21/19 12:14 Last Admin: 05/23/19 03:56 Dose: Not Given Documented by: Nicardipine HCl 25 mg/ Sodium (Chloride) 250 mls @ 50 mls/hr IV .Q5H ANNE; Protocol Stop: 06/21/19 17:34 Last Titration: 05/23/19 08:29 Dose: 0 mg/hr, 0 mls/hr Documented by: Insulin Aspart (Novolog Flexpen) 0 units SC ACHS ANNE Stop: 06/21/19 07:29 Last Admin: 05/23/19 07:47 Dose: 6 units Documented by: Insulin Glargine (Lantus) 0 units SC HS [facility]; Protocol Stop: 06/21/19 20:59 Last Admin: 05/22/19 20:12 Dose: 36 units Documented by: Isosorbide Mononitrate (Imdur Extended Rel) 90 mg PO DAILY ANNE Stop: 06/21/19 08:59 Last Admin: 05/23/19 07:47 Dose: 90 mg Documented by: Metoprolol Tartrate (Lopressor) 2.5 mg IV Q4 PRN PRN Reason: Hypertension Stop: 06/21/19 02:38 Last Admin: 05/22/19 07:33 Dose: 2.5 mg Documented by: Metoprolol Tartrate (Lopressor) 25 mg PO BID [facility] Stop: 06/21/19 08:59 Last Admin: 05/23/19 07:48 Dose: 25 mg Documented by: Miscellaneous (Carbohydrates For Hypoglycemia) 15 - 30 gm PO UD PRN PRN Reason: Hypoglycemia Treatment Stop: 06/21/19 03:44 Miscellaneous Information (Consult Glycemic Management Pharmacy) 1 ea N/A UD PRN PRN Reason: Consult Stop: 06/21/19 09:30 Morphine Sulfate (Morphine Sulfate) 2 mg IV Q30M PRN PRN Reason: Chest Pain Stop: 06/05/19 02:38 Last Admin: 05/22/19 16:36 Dose: 2 mg Documented by: Nitroglycerin (Nitrostat) 0.4 mg SL UD PRN PRN Reason: Chest Pain Stop: 06/21/19 02:38 Last Admin: 05/22/19 08:06 Dose: 0.4 mg Documented by: Ondansetron HCl (Zofran) 4 mg IV Q6H PRN PRN Reason: Nausea Stop: 06/21/19 02:38 Prasugrel (Effient) 10 mg PO DAILY [facility] Stop: 06/21/19 08:59 Last Admin: 05/23/19 07:49 Dose: 10 mg Documented by: Simvastatin (Zocor) 40 mg PO HS ANNE Stop: 06/21/19 20:59 Last Admin: 05/22/19 20:13 Dose: 40 mg Documented by: Tamsulosin HCl (Flomax) 0.4 mg PO DAILY ANNE Stop: 06/21/19 08:59 Last Admin: 05/23/19 07:49 Dose: 0.4 mg Documented by: Vitamin D (Vitamin D3) 3,000 units PO DAILY ANNE Stop: 06/21/19 08:59 Last Admin: 05/23/19 07:47 Dose: 3,000 units Documented by: PG Care Time/CCT Total # of Minutes Spent Total Time Spent with Patient: Total time spent is greater than 50% in coordination of care (as documented) at patient's floor/unit and/or counseling patient: Resident Activity Tracking Resident Involvement: Resident Care Provided Care Provided: Adult Hospital Medicine
[2019-05-23 06:54] LABS: BUN Creatinine Ratio 11.5 (10-20); Calcium 8.4 mg/dl (8.5-10.1); Creatinine Clr Calc Pharmacy 46.9 ml/min; Est GFR (African American) 37.6; Est GFR (Non-African American) 32.4; Potassium 4.1 mmol/L (3.5-5.1)
[2019-05-23] MEDS: ISOSORBIDE MONO EXTENDED REL 60 MG TABCR PO SCH (07:47)
[2019-05-23] MEDS: CHOLECALCIFEROL 1,000 UNITS TAB PO SCH (07:47)
[2019-05-23] MEDS: METOPROLOL TARTRATE 25 MG TAB PO SCH (07:48)
[2019-05-23] MEDS: PRASugrel TAB 10 MG TAB PO SCH (07:49)
[2019-05-23] MEDS: HEPARIN SOD 5,000 UNIT/0.5 ML VIAL SQ SCH ×2 (07:49→20:11)
[2019-05-23] MEDS: TAMSULOSIN HCL 0.4 MG CAP PO SCH (07:49)
[2019-05-23] MEDS: ASPIRIN 81 MG ECTAB PO SCH (07:49)
--- NOTE | 2019-05-23 08:49 | Nephrology Progress Note ---
Date of Service May 23, 2019 Assessment & Plan (1) Hypertensive emergency: -continue lopressor 25 mg bid, prn metoprolol 2.5 mg IV -goal sbp today is 130-140s -if bp consistently above goal, try low dose nifedipine -would not add diuretic or resume acei at this time given that he just had IV contrast and is already at high risk for KELLI (2) NSTEMI (non-ST elevated myocardial infarction): per cardiology and primary service; for medical mgt (3) CKD (chronic kidney disease) stage 3, GFR 30-59 ml/min: baseline creatinine 2.1-2.3; high risk for KELLI on CKD after cath and given lability of bp in setting of vol OL and solitary kidney but for now at baseline bland urine sediment on presentation w/ exception of proteinuria; pt w/ 100-300 mg albuminuria past few OP checks w/ PCP 2017 - May 2019 -hold ACEI given risk for kelli which will persist 48 hrs after IV dye exposure -would give another 500 mL of 1/2 NS w/ 75 mEq/L sodium bicarbonate -daily bmp -ensure he resumes OP f/u in CKD clinic after d/c (4) Solitary kidney, 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; increases risk for KELLI, for OP proteinuria Subjective SBP in 140-150s ON on titration protocols; pt on RA this am; nicardipine gtt turned off at about 0800; pt denies sob, chest pain, edema, n/v, voiding concerns Review of Systems Review of Systems: All systems reviewed & are unremarkable except as noted in HPI & below Physical Exam Constitutional: well developed, well nourished and + obese Eyes: EOM intact bilaterally ENMT: Ears: no external ear abnormality Nose: no external nose abnormality Mouth: + dry oral mucous membranes Neck: no nuchal rigidity Respiratory: normal respiratory effort; no respiratory distress and no labored breathing Auscultation: + diminished lung sounds; no wheezes Cardiovascular: RRR, no murmur, no edema Gastrointestinal (Abdomen): Inspection/Auscultation: normal bowel sounds Percussion/Palpation: abdomen soft; abdomen nontender Musculoskeletal: Extremities: strength 5/5 throughout (but struggles to maneuver for exam) Skin: no rashes, warm and dry Psychiatric: Orientation: alert and oriented x 3 Eye Contact: + fair eye contact Speech: normal rate/rhythm/volume of speech (but limited amount) Affect: + blunted affect Results & Data Vital Signs (Past 12 Hours) Vital Signs Temp Pulse Resp BP Pulse Ox 05/23/19 08:00 36.5 C 94 H 17 137/73 96 05/23/19 07:30 90 16 155/89 H 98 05/23/19 07:00 84 15 156/83 H 96 05/23/19 06:00 91 H 14 151/78 H 97 05/23/19 05:00 90 27 H 153/80 H 100 05/23/19 04:00 36.6 C 92 H 18 156/84 H 97 05/23/19 03:21 105 H 18 97 05/23/19 03:15 82 26 H 133/74 97 05/23/19 03:00 84 24 161/75 H 97 05/23/19 02:00 82 23 145/69 H 97 05/23/19 01:00 77 16 146/75 H 98 05/23/19 00:00 36.5 C 79 16 149/76 H 99 05/22/19 23:00 76 15 133/73 98 05/22/19 22:03 77 16 96 05/22/19 22:00 76 19 138/73 97 05/22/19 21:00 86 19 134/76 99 Laboratory Results 05/23/19 06:00 05/23/19 06:00
[2019-05-23] MEDS ORDERED: ENALAPRIL MALEATE 10 MG TAB PO STA (09:00)
--- NOTE | 2019-05-23 11:10 | Pharmacy Report ---
Pharmacy Glycemic Short Note 2 - Date of Service May 23, 2019 - Glycemic Short BSG Results (Last 24 hours): 05/22/19 05/22/19 05/22/19 12:24 12:39 16:15 Glucose 154 H POC Glucose 147 H 111 H 05/22/19 05/22/19 05/23/19 20:08 23:45 03:46 Glucose POC Glucose 143 H 127 H 73 05/23/19 05/23/19 06:00 07:46 Glucose 181 H POC Glucose 184 H Outpatient Anti-diabetic Regimen: * Tresiba 72 units SC HS * Novolog units TIDM plus SSI * Linagliptin 5 mg po daily * A1c = 8.0% on 05/22/19 The patient is currently receiving: * Basal insulin: Likely received home Tresiba 72 units HS on 05/21 prior to arrival. Lantus 36 units SC HS on 05/22. * Correctional Insulin: none administered yet * Prandial insulin: none administered yet * Oral Agents: on hold for admission Risk Factors for Insulin Resistance: * Recent Surgery: POD 1 s/p cardiac cath * Diet: T2DM ASSESSMENT: * 59 yo M with T2DM admitted with NSTEMI and s/p cardiac cath on 05/22 * BSG's have ranged 73-154 mg/dL yesterday and overnight last night. No Novolog was administered until this AM with breakfast. Only insulin administered until breakfast this AM was Lantus last night. * This morning, BSG increased from 73 mg/dL @ 0345 to 184 mg/dL @ 0745 * Suspect the 73 mcg/mL overnight was not due to the lower dose of Lantus administered in PM on 05/23 but rather due to moderate persistence of effect of the 72 units of Tresiba likely administered 05/21 PM on the day prior to arrival * Will loosen Novolog parameters at breakfast 2nd recent BSG of 73 mg/dL. BSG appropriately trended from 184 to 161 mg/dL in response to this change. Therefore no further adjustment at lunch needed. PLAN FOR INPATIENT GLYCEMIC CONTROL: * Holding outpatient oral diabetes medications * Basal insulin: Lantus HS based on BSG as follows * 36 units for BSG less than 180 mg/dL * 42 units for BSG 180 mg/dL or greater * Bolus insulin * NovoLog per scale ACHS or Q6hrs while NPO with one overnight check * Goal Range: Low 110 mg/dL - High 140 mg/dL * Correction Factor: 30 mg/dL/unit * Nutritional / Prandial insulin per carb ratio of 1 unit per 10 grams CHO consumed
--- NOTE | 2019-05-23 11:50 | Hospitalist Progress Note ---
Date of Service May 23, 2019 Assessment & Plan (1) Hypertensive emergency: Resolved after IV nicardipine drip overnight Has been discontinued, patient is continued with outpatient regimen of Imdur 90 mg daily, Lopressor 25 mg daily, Vasotec kept on hold secondary to concern for KELLI(given recent contrast exposure) No further episode of anginal symptoms, remains in room air no hypoxia Patient input from cardiology 05/22/2019 Pt developed severe substernal chest comfort/shortness of breath, diaphoresis- secondary to hypertensive urgency: SBP was more than 200 Emergent cardiac cath showed chronic occlusive coronary artery disease, no PTCA was indicated Transferred to ICU was started with IV nitro drip With improvement of blood pressure-resolution of symptoms (2) NSTEMI (non-ST elevated myocardial infarction): Secondary to demand ischemia/type II IL due to hypertensive urgency History of coronary artery disease status post PTCA LAD in 2008 Patient has been on Effient Presents with exertional chest heaviness discomfort Leading to severe shortness of breath/crushing substernal chest discomfort in the setting of hypertensive urgency Patient was added on IV heparin in ER Underwent emergent cardiac cath by intervention cardiology Dr. Laith Eckert Cardiac cath shows: LM -luminal irregularities LAD -20 to 30% ostial, diffuse 50% mid at takeoff of first septal extending past takeoff of second diagonal. 99% earlydistal and 99% stenosis as wraps around apex. Bifurcating first septal with high-grade ostial stenosis. Moderate caliber second diagonal with luminal irregularities and LAUREN-3 flow. Circumflex -moderate caliber vessel, 20 to 30% ostial. Very small OM 2 occluded with partial filling distally via left to left collaterals. Very small left PLB with 95% stenosis. RCA -dominant, patent proximal to mid stents, latemid luminal irregularities, 30 to 40% distal stenosis prior to takeoff of right PDA. LVEDP -30-elevated Summary: 1. Severe single vessel chronic coronary artery disease -50% diffuse mid LAD, sequential 99% distal LAD lesions 2. Elevated intracardiac filling pressure IV heparin discontinued, as there was no evidence of new cardiac thrombotic event Patient is continued with outpatient antiplatelets Cardiology recommends medical management, with judicial control of blood pressure Since anginal symptoms completely resolved after blood pressure control (3) CKD (chronic kidney disease) stage 3, GFR 30-59 ml/min: History of renal cell carcinoma(clear cell) status post nephrectomy CKD stage III Recent creatinine 2.2 Continue to monitor renal function closely given recent contrast exposure and cardiac cath, hypertensive urgency Nephrology consult appreciated Renal function remains stable 2.18 postprocedure Continue to monitor daily BMP, avoid nephrotoxins, SHARI inhibitor kept on hold HISTORY OF MELANOMA IN BACK Status post wide margin resection No recent recurrence as per patient CODE STATUS: Full code DVT prophylaxis: Subcu heparin Disposition: Stable to be transferred to PCU Update given to patient's girlfriend over phone Subjective Patient reports of feeling very well, Had an uneventful night, Complain of shortness of breath chest heaviness, no orthopnea Has been off IV nifedipine drip since morning, blood pressure remains stable systolic in 130s Was on CPAP last night for brief. No cough, no fever or chills vitals stable Was transferred to PCU today Review of Systems Review of Systems: All systems reviewed & are unremarkable except as noted in HPI & below Physical Exam Constitutional: WD/WN, vitals as above Eyes: PERRL, conjunctivae normal, anicteric sclerae ENMT: external ear and nose normal, oropharynx normal Neck: trachea midline, no thyromegaly Respiratory: normal respiratory effort, lungs clear to auscultation Cardiovascular: RRR, no murmur, no edema Gastrointestinal (Abdomen): normal bowel sounds, soft, nontender, no hepatosplenomegaly Musculoskeletal: no cyanosis or clubbing, extremities motor strength 5/5 Skin: no rashes, warm and dry Neurologic: PERRL, EOMI, accommodation nl, no face palsy, no dysarthria Results & Data Vital Signs (Past 12 Hours) Vital Signs Temp Pulse Resp BP Pulse Ox 05/23/19 11:00 79 17 152/81 H 95 05/23/19 10:30 79 16 138/77 93 05/23/19 10:00 79 24 154/77 H 95 05/23/19 09:31 80 19 131/72 93 05/23/19 09:00 84 22 119/79 94 05/23/19 08:30 85 23 142/76 H 93 05/23/19 08:00 36.5 C 94 H 17 137/73 96 05/23/19 07:30 90 16 155/89 H 98 05/23/19 07:00 84 15 156/83 H 96 05/23/19 06:00 91 H 14 151/78 H 97 05/23/19 05:00 90 27 H 153/80 H 100 05/23/19 04:00 36.6 C 92 H 18 156/84 H 97 05/23/19 03:21 105 H 18 97 05/23/19 03:15 82 26 H 133/74 97 05/23/19 03:00 84 24 161/75 H 97 05/23/19 02:00 82 23 145/69 H 97 05/23/19 01:00 77 16 146/75 H 98 05/23/19 00:00 36.5 C 79 16 149/76 H 99
[2019-05-23] MEDS ORDERED: ALPRAZolam 0.25 MG TABLET PO PRN (11:51)
--- NOTE | 2019-05-23 12:49 | Cardiology Progress Note ---
Date of Service May 23, 2019 Assessment & Plan (1) Hypertensive emergency: Patient describes a stable cardiac signs and symptoms. He is not volume overloaded on exam today. He feels much improved. The etiology of his sudden increase in his blood pressure is a little unclear, he states he had been adherent to his home medications with the exception of missing 2 doses of Altace. He has been having perhaps some muscular skeletal pain related to his mechanical fall a week ago with resultant rib fracture. His troponin is only mildly elevated, I think this is just due to myocardial strain in setting of significant hypertension, his coronary artery anatomy was stable on angiography performed yesterday with known distal LAD stenosis that dates back to 2008. He had a stenosis of the very small distal branch of the RCA, which will be treated medically. Stable for telemetry status. Subjective Chief complaint: Follow-up chest pain, shortness of breath Subjective: Patient feeling very well. He was reassessed in room 103 of the ICU . His blood pressure is much improved. He has been treated with nitroglycerin and IV nifedipine. He had been off of both infusions by 930 this morning and received his morning medications. He states that leading up to the event, he missed 2 doses of his SHARI inhibitor Altace at home, but otherwise did not miss any recent medications. Review of Systems Review of Systems: All systems reviewed & are unremarkable except as noted in HPI & below Physical Exam Physical Exam: Temp Pulse Resp BP Pulse Ox 36.5 C 88 24 152/81 H 95 05/23/19 08:00 05/23/19 12:00 05/23/19 12:00 05/23/19 11:00 05/23/19 11:00 Constitutional: WD/WN, vitals as above Respiratory: normal respiratory effort, lungs clear to auscultation Cardiovascular: RRR, no murmur, no edema Right radial artery catheterization site clean dry and intact without ecchymosis Gastrointestinal (Abdomen): normal bowel sounds, soft, nontender, no hepatosplenomegaly Neurologic: PERRL, EOMI, accommodation nl, no face palsy, no dysarthria Results & Data Vital Signs (Past 12 Hours) Vital Signs Temp Pulse Resp BP Pulse Ox 05/23/19 12:00 88 24 05/23/19 11:00 79 17 152/81 H 95 05/23/19 10:30 79 16 138/77 93 05/23/19 10:00 79 24 154/77 H 95 05/23/19 09:31 80 19 131/72 93 05/23/19 09:00 84 22 119/79 94 05/23/19 08:30 85 23 142/76 H 93 05/23/19 08:00 36.5 C 94 H 17 137/73 96 05/23/19 07:30 90 16 155/89 H 98 05/23/19 07:00 84 15 156/83 H 96 05/23/19 06:00 91 H 14 151/78 H 97 05/23/19 05:00 90 27 H 153/80 H 100 05/23/19 04:00 36.6 C 92 H 18 156/84 H 97 05/23/19 03:21 105 H 18 97 05/23/19 03:15 82 26 H 133/74 97 05/23/19 03:00 84 24 161/75 H 97 05/23/19 02:00 82 23 145/69 H 97 05/23/19 01:00 77 16 146/75 H 98 Laboratory Results Cardiac Enzymes 05/22/19 05/22/19 05/23/19 Range/Units 12:39 17:12 09:42 Troponin I 0.067 H* 0.071 H* 0.034 (0-0.045) ng/ml CBC 05/23/19 Range/Units 06:00 WBC 11.57 H (4.8-10.8) K/uL RBC 3.92 L (4.7-6.1) M/uL Hgb 11.6 L (14.0-18.0) g/dL Hct 35.1 L (42-52) % Plt Count 235 (130-400) K/uL Comprehensive Metabolic Panel 05/22/19 05/23/19 Range/Units 12:39 06:00 Sodium 141 140 (136-145) mmol/L Potassium 4.4 4.1 (3.5-5.1) mmol/L Chloride 112 H 109 H (98-107) mmol/L Carbon Dioxide 25 24 (21-32) mmol/L BUN 22 H 25 H (7-18) mg/dl Creatinine 2.28 H 2.18 H (0.6-1.4) mg/dl Glucose 154 H 181 H (70-99) mg/dl Calcium 8.0 L 8.4 L (8.5-10.1) mg/dl Intake and Output 05/22/19 05/23/19 05/23/19 22:59 06:59 14:59 Intake Total 605.500 / 3421.583 1733.750 / 3421.583 829.750 / 829.750 Output Total 500 / 900 400 / 900 500 / 500 Balance 105.500 / 2521.583 1333.750 / 2521.583 329.750 / 329.750 Intake: IV 365.500 / 2561.583 1493.750 / 2561.583 149.750 / 149.750 Cardene 25 mg In Nss 240 ml @ 0 291.250 / 735.000 443.750 / 735.000 149.000 / 149.000 MG/HR IV .Q0M [facility] Rx#:[id number] NITROGLYCERIN/D5w 100 Mcg/Ml 74.25 / 74.25 0.75 / 0.75 250 ML @ 0 MCG/MIN IV .Q0M [facility] Rx#:[id number] Sodium Bicarbonate 8.4% 50 Meq 1050 / 1050 In 1/2 Nss 1,000 ml @ 80 mls/hr IV .Q13H8M [facility] Rx#:[id number] Oral 240 / 860 240 / 860 680 / 680 Output: Urine 500 / 900 400 / 900 500 / 500 Other: # Unmeasured Voids 1 Weight 112 kg Medications Administered Current Inpatient Medications Acetaminophen (Tylenol) 650 mg PO Q4H PRN PRN Reason: Pain or Fever Stop: 06/21/19 02:38 Last Admin: 05/22/19 14:21 Dose: 650 mg Documented by: Acetaminophen/Codeine Phosphate (Tylenol W/Codeine #3) 1 tab PO Q4H PRN PRN Reason: Pain Stop: 06/21/19 02:38 Alprazolam (Xanax) 0.25 mg PO Q8 PRN PRN Reason: Anxiety Stop: 06/22/19 11:50 Aspirin (Ecotrin Ectab) 162 mg PO DAILY [facility] Stop: 06/21/19 08:59 Last Admin: 05/23/19 07:49 Dose: 162 mg Documented by: Dextrose (Dextrose 50%) 25 - 50 ml IV UD PRN; Protocol PRN Reason: Hypoglycemia Protocol Stop: 06/21/19 03:44 Glucagon (Glucagen) 1 mg SQ UD PRN; Protocol PRN Reason: Hypoglycemia Protocol Stop: 06/21/19 03:44 Glucose (Glucose 40%) 15 - 30 gm PO UD PRN; Protocol PRN Reason: Hypoglycemia Protocol Stop: 06/21/19 03:44 Glucose (Dex4 Glucose) 4 - 8 tabs PO UD PRN; Protocol PRN Reason: Hypoglycemia Protocol Stop: 06/21/19 03:44 Heparin Sodium (Porcine) (Heparin Sodium (Porcine)) 5,000 units SQ Q12 [facility] Stop: 06/21/19 20:59 Last Admin: 05/23/19 07:49 Dose: 5,000 units Documented by: Insulin Aspart (Novolog Flexpen) 0 units SC ACHS [facility] Stop: 06/21/19 07:29 Last Admin: 05/23/19 11:38 Dose: 8 units Documented by: Insulin Glargine (Lantus) 0 units SC HS [facility]; Protocol Stop: 06/21/19 20:59 Last Admin: 05/22/19 20:12 Dose: 36 units Documented by: Isosorbide Mononitrate (Imdur Extended Rel) 90 mg PO DAILY [facility] Stop: 06/21/19 08:59 Last Admin: 05/23/19 07:47 Dose: 90 mg Documented by: Metoprolol Tartrate (Lopressor) 2.5 mg IV Q4 PRN PRN Reason: Hypertension Stop: 06/21/19 02:38 Last Admin: 05/22/19 07:33 Dose: 2.5 mg Documented by: Metoprolol Tartrate (Lopressor) 25 mg PO BID [facility] Stop: 06/21/19 08:59 Last Admin: 05/23/19 07:48 Dose: 25 mg Documented by: Miscellaneous (Carbohydrates For Hypoglycemia) 15 - 30 gm PO UD PRN PRN Reason: Hypoglycemia Treatment Stop: 06/21/19 03:44 Miscellaneous Information (Consult Glycemic Management Pharmacy) 1 ea N/A UD PRN PRN Reason: Consult Stop: 06/21/19 09:30 Morphine Sulfate (Morphine Sulfate) 2 mg IV Q30M PRN PRN Reason: Chest Pain Stop: 06/05/19 02:38 Last Admin: 05/22/19 16:36 Dose: 2 mg Documented by: Ondansetron HCl (Zofran) 4 mg IV Q6H PRN PRN Reason: Nausea Stop: 06/21/19 02:38 Prasugrel (Effient) 10 mg PO DAILY [facility] Stop: 06/21/19 08:59 Last Admin: 05/23/19 07:49 Dose: 10 mg Documented by: Simvastatin (Zocor) 40 mg PO HS [facility] Stop: 06/21/19 20:59 Last Admin: 05/22/19 20:13 Dose: 40 mg Documented by: Tamsulosin HCl (Flomax) 0.4 mg PO DAILY [facility] Stop: 06/21/19 08:59 Last Admin: 05/23/19 07:49 Dose: 0.4 mg Documented by: Vitamin D (Vitamin D3) 3,000 units PO DAILY [facility] Stop: 06/21/19 08:59 Last Admin: 05/23/19 07:47 Dose: 3,000 units Documented by:
--- NOTE | 2019-05-23 16:01 | Ultrasound Report ---
BILATERAL LOWER EXTREMITY VENOUS DOPPLER HISTORY: Possible pulmonary embolus. eval for possible DVT COMPARISON STUDY: None. FINDINGS: There is normal compressibility, flow, and augmentation within the bilateral lower extremit y deep venous systems. IMPRESSION: No DVT within the right or left lower extremity. Electronically signed by: Krish Lerma M.D. 05/23/2019 3:59 PM
[2019-05-23] MEDS: METOPROLOL TARTRATE 1 MG/ML VIAL IV PRN ×2 (16:10→22:47)
--- NOTE | 2019-05-23 17:56 | Communication Note ---
Date of Service: May 23, 2019 BP above goal. Will DC metoprolol tartrate. Add carvedilol 6.25 mg BID for better blood pressure control , and treatment of Ichemic CM.
--- NOTE | 2019-05-23 19:57 | Emergency Department Note ---
Entered by Wilmar Willis acting as a scribe for History of Present Illness General Chief complaint: Shortness of Breath/Dyspnea Stated complaint: SOB, CHEST PAIN Time Seen by Provider: 05/21/19 23:19 Source: patient and family (girlfriend) Limitations: no limitations History of Present Illness Onset (ago): day(s) (yesterday) Location: chest Pain Consistency: + intermittent Maximum Pain Intensity: 6 Relieved By: + rest Exacerbated By: + movement Associated symptoms: + chest pain, + shortness of breath and + other (wheezing) The patient is a 59 year old male who presents to the Emergency Room with complaints of worsening and intermittent SOB starting yesterday. The patient states he had a previous heart attack and notes he had 2 stents placed. The patient's girlfriend notes the patient hit his ribs on a tub last week and has some right lateral rib pain from that. The patient denies having bruising or persistent pain from the rib injury. The girlfriend states the patient was getting central chest pain yesterday with exertion and it went away with rest. She states the patient was wheezing yesterday. The patient states he was having SOB with exertion today at 1500. He notes he no longer had SOB when he laid down. He states he had another episode of SOB with exertion later and states he took Nitro this time. He notes he gets headaches with nitro. 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 He states he has stage 3 Kidney disease. The girlfriend notes the patient had 3 melanomas last year. The girlfriend states the patient's last creatinine was 2.2. The patient denies recent cough, cold symptoms, leg swelling, dizziness, lightheadedness, nausea, smoking, or having asthma. Home Medications Home Medications Medication Instructions Recorded Confirmed Type acetaminophen-codeine 1 tab PO UD PRN 05/22/19 05/22/19 History alprazolam [Xanax] 0.25 mg PO Q8 PRN 05/22/19 05/22/19 History aspirin 162 mg PO DAILY 05/22/19 05/22/19 History cholecalciferol (vitamin D3) 3,000 unit PO DAILY 05/22/19 05/22/19 History [Vitamin D3] colchicine [Colcrys] 0.6 mg PO DAILY PRN 05/22/19 05/22/19 History cyanocobalamin (vitamin B-12) 1,000 mcg PO DAILY 05/22/19 05/22/19 History [Vitamin B-12] duloxetine 60 mg PO DAILY 05/22/19 05/22/19 History icosapent ethyl [Vascepa] 1 g PO BID 05/22/19 05/22/19 History insulin aspart U-100 [Novolog 0 unit SUBCUT TIDM 05/22/19 05/22/19 History Flexpen U-100 Insulin] insulin degludec [Tresiba 72 unit SUBCUT HS 05/22/19 05/22/19 History FlexTouch U-200] isosorbide mononitrate 90 mg PO DAILY 05/22/19 05/22/19 History linagliptin [Tradjenta] 5 mg PO DAILY 05/22/19 05/22/19 History meclizine 12.5 mg PO Q8 PRN 05/22/19 05/22/19 History metoprolol tartrate 12.5 mg PO BID 05/22/19 05/22/19 History niacin 500 mg PO DAILY 05/22/19 05/22/19 History prasugrel [Effient] 10 mg PO DAILY 05/22/19 05/22/19 History ramipril 5 mg PO DAILY 05/22/19 05/22/19 History simvastatin 20 mg PO HS 05/22/19 05/22/19 History tamsulosin 0.4 mg PO DAILY 05/22/19 05/22/19 History Allergies Allergy/AdvReac Type Severity Reaction Status Date / Time cucumber Allergy Severe reports Verified 05/22/19 00:56 rash/hives NSAIDS (Non-Steroidal AdvReac Severe to avoid Verified 05/22/19 00:56 Anti-Inflamma due to poor renal fxn oseltamivir [From Tamiflu] AdvReac Unknown Confusion Verified 05/22/19 02:26 Past Med/Surg History Medical History CKD (chronic kidney disease) stage 3, GFR 30-59 ml/min Heart attack Melanoma s/p 06/2018 excision Surgical History H/O left radical nephrectomy 2011 for renal cell carcinoma History of intravascular stent placement 2008, 2009 Family History Father Coronary heart disease Brother Diabetes Social History Preferred Language: Slovak Communication Ability: Effective Beliefs That Will Affect Care: None Current Living Situation: Alone Feels Safe at Home: Yes Safety Concerns: Feels Safe At This Time Smoking Status: Never smoker Hx Alcohol Use: Yes Hx Substance Use: No Review of Systems See HPI for pertinent positives & negatives. and A total of 10 systems reviewed and were otherwise negative Physical Exam Vital Signs Vital Signs - 24 hr 05/21/19 23:15 05/21/19 23:47 05/22/19 00:57 Temperature 98.2 F Temperature Source Oral Sepsis Recent Fever Within 48 Hours No Sepsis New/Unexplained Change in Mental Status No Sepsis Action Taken by Nursing No Action Required Pulse Rate 99 H 88 Pulse Rate [Apical] Respiratory Rate 26 H Respiratory Effort / Characteristics Respiratory Depth Blood Pressure 196/95 H 189/93 H Blood Pressure [Left Arm] Blood Pressure Mean 128 Blood Pressure Mean [Left Arm] Pulse Oximetry 97 Oxygen Delivery Method Room Air Oxygen Flow Rate 95 05/22/19 01:04 Temperature Temperature Source Sepsis Recent Fever Within 48 Hours Sepsis New/Unexplained Change in Mental Status Sepsis Action Taken by Nursing Pulse Rate Pulse Rate [Apical] 86 Respiratory Rate 18 Respiratory Effort / Characteristics Non-Labored Respiratory Depth Normal Blood Pressure Blood Pressure [Left Arm] 178/89 H Blood Pressure Mean Blood Pressure Mean [Left Arm] 118 Pulse Oximetry 96 Oxygen Delivery Method Room Air Oxygen Flow Rate GENERAL: alert, well appearing, well nourished, no distress, non-toxic. Obese. EYE EXAM: normal conjunctiva, PERRL and EOM's grossly intact OROPHARYNX: no exudate, no erythema, lips, buccal mucosa, and tongue normal and mucous membranes are moist NECK: supple, no nuchal rigidity, no adenopathy, non-tender LUNGS: Clear to auscultation. Normal chest wall mechanics. No wheezes, rhonchi, or rales HEART: no murmurs, S1 normal and S2 normal ABDOMEN: abdomen soft, non-tender, normo-active bowel sounds, no masses, no rebound or guarding. BACK: Back is symmetrical on inspection and there is no deformity, no midline tenderness, no CVA tenderness. SKIN: no rashes and no bruising UPPER EXTREMITIES: upper extremities are grossly normal. FROM, nml pulses b/l. LOWER EXTREMITIES: Trace pedal edema. FROM, nml pulses b/l. NEURO EXAM: Normal sensorium, cranial nerves II-XII grossly intact, normal speech, no gross weakness of arms, no gross weakness of legs. Course 2324: The patient was evaluated in room B5, and a complete history and physical examination were performed. 0035: I reevaluated the patient. I updated the patient on his labs and imaging results. He is in agreement with plan. He is aware of all results. Vital signs are stable. He has no new symptoms. 0042: I discussed the patient's case with Dr. Koo [facility] Hospitalist. He will evaluate the patient for further management Administered Medications Acetaminophen (Tylenol) 650 mg PO Q4H PRN PRN Reason: Pain or Fever Stop: 06/21/19 02:38 Last Admin: 05/22/19 14:21 Dose: 650 mg Documented by: [id number] Aspirin (Ecotrin Ectab) 162 mg PO DAILY ANNE Stop: 06/21/19 08:59 Last Admin: 05/23/19 07:49 Dose: 162 mg Documented by: [id number] Admin: 05/22/19 09:34 Dose: Not Given Documented by: [id number] Heparin Sodium (Porcine) (Heparin Sodium (Porcine)) 5,000 units SQ Q12 ANNE Stop: 06/21/19 20:59 Last Admin: 05/23/19 07:49 Dose: 5,000 units Documented by: [id number] Cosigned by: [id number] Admin: 05/22/19 20:13 Dose: 5,000 units Documented by: [id number] Cosigned by: [id number] Insulin Aspart (Novolog Flexpen) 0 units SC ACHS ANNE Stop: 06/21/19 07:29 Last Admin: 05/23/19 16:16 Dose: 8 units Documented by: [id number] Cosigned by: [id number] Admin: 05/23/19 11:38 Dose: 8 units Documented by: [id number] Cosigned by: [id number] Admin: 05/23/19 07:47 Dose: 6 units Documented by: [id number] Cosigned by: [id number] Admin: 05/22/19 20:10 Dose: Not Given Documented by: [id number] Cosigned by: [id number] Admin: 05/22/19 16:53 Dose: Not Given Documented by: [id number] Cosigned by: [id number] Admin: 05/22/19 12:46 Dose: Not Given Documented by: [id number] Cosigned by: [id number] Admin: 05/22/19 07:40 Dose: Not Given Documented by: [id number] Cosigned by: [id number] Insulin Glargine (Lantus) 0 units SC [facility]; Protocol Stop: 06/21/19 20:59 Last Admin: 05/22/19 20:12 Dose: 36 units Documented by: [id number] Cosigned by: [id number] Isosorbide Mononitrate (Imdur Extended Rel) 90 mg PO DAILY [facility] Stop: 06/21/19 08:59 Last Admin: 05/23/19 07:47 Dose: 90 mg Documented by: [id number] Admin: 05/22/19 07:48 Dose: 90 mg Documented by: [id number] Morphine Sulfate (Morphine Sulfate) 2 mg IV Q30M PRN PRN Reason: Chest Pain Stop: 06/05/19 02:38 Last Admin: 05/22/19 16:36 Dose: 2 mg Documented by: [id number] Admin: 05/22/19 07:58 Dose: 2 mg Documented by: [id number] Prasugrel (Effient) 10 mg PO DAILY [facility] Stop: 06/21/19 08:59 Last Admin: 05/23/19 07:49 Dose: 10 mg Documented by: [id number] Admin: 05/22/19 10:11 Dose: 10 mg Documented by: [id number] Simvastatin (Zocor) 40 mg PO [facility] Stop: 06/21/19 20:59 Last Admin: 05/22/19 20:13 Dose: 40 mg Documented by: [id number] Tamsulosin HCl (Flomax) 0.4 mg PO DAILY [facility] Stop: 06/21/19 08:59 Last Admin: 05/23/19 07:49 Dose: 0.4 mg Documented by: [id number] Admin: 05/22/19 10:12 Dose: 0.4 mg Documented by: [id number] Vitamin D (Vitamin D3) 3,000 units PO DAILY [facility] Stop: 06/21/19 08:59 Last Admin: 05/23/19 07:47 Dose: 3,000 units Documented by: [id number] Admin: 05/22/19 10:12 Dose: 3,000 units Documented by: [id number] Discontinued Medications Aspirin (Ecotrin) 325 mg PO NOW STA Stop: 05/22/19 00:38 Last Admin: 05/22/19 01:09 Dose: 325 mg Documented by: [id number] Aspirin (Aspirin Chew) Confirm Administered Dose 324 mg .ROUTE .STK-MED ONE Stop: 05/22/19 08:08 Last Admin: 05/22/19 08:16 Dose: 324 mg Documented by: [id number] Cyanocobalamin (Vitamin B-12) 1,000 mcg PO DAILY [facility] Stop: 06/21/19 08:59 Last Admin: 05/23/19 06:55 Dose: Not Given Documented by: [id number] Duloxetine HCl (Cymbalta) 60 mg PO DAILY [facility] Stop: 06/21/19 08:59 Last Admin: 05/23/19 06:55 Dose: Not Given Documented by: [id number] Enalapril Maleate (Vasotec) 20 mg PO DAILY [facility] Stop: 06/21/19 08:59 Last Admin: 05/22/19 07:47 Dose: 20 mg Documented by: [id number] Enalapril Maleate (Vasotec) 20 mg PO NOW [facility] Stop: 05/23/19 09:01 Last Admin: 05/23/19 09:25 Dose: 20 mg Documented by: [id number] Fentanyl Citrate (Fentanyl Citrate) Confirm Administered Dose 100 mcg .ROUTE .STK-MED ONE Stop: 05/22/19 08:01 Last Admin: 05/22/19 10:24 Dose: Not Given Documented by: [id number] Heparin Sodium (Porcine) (Heparin Iv Bolus) Confirm Administered Dose 10,000 units .ROUTE .STK-MED ONE Stop: 05/22/19 00:41 Last Admin: 05/22/19 00:49 Dose: 4,000 units Documented by: [id number] Cosigned by: [id number] Heparin Sodium (Porcine) (Heparin Iv Bolus ([employer] Systems [employer] Use Only)) Confirm Administered Dose 10,000 units .ROUTE .STK-MED ONE Stop: 05/22/19 08:01 Last Admin: 05/22/19 10:25 Dose: Not Given Documented by: [id number] Heparin Sodium/Dextrose () 1 ea N/A NOW STA; Protocol Stop: 05/22/19 00:29 Last Admin: 05/22/19 00:51 Dose: Not Given Documented by: [id number] Heparin Sodium/Sodium Chloride (Heparin/Nss 1000 Unit/500ml Flush Bag) Confirm Administered Dose 3,000 units IV .STK-MED ONE Stop: 05/22/19 08:01 Last Admin: 05/22/19 10:25 Dose: Not Given Documented by: [id number] Heparin Sodium/Dextrose (Heparin Sodium/Dextrose) 25,000 units in 500 mls @ 20 mls/hr IV .Q24H ANNE; Protocol Stop: 06/21/19 00:29 Last Titration: 05/22/19 12:10 Dose: 0 units/hr, 0 mls/hr Documented by: [id number] Cosigned by: [id number] Admin: 05/22/19 10:06 Dose: 1,000 units/hr, 20 mls/hr Documented by: [id number] Cosigned by: [id number] Titration: 05/22/19 10:06 Dose: 1,000 units/hr, 20 mls/hr Documented by: [id number] Cosigned by: [id number] Titration: 05/22/19 07:18 Dose: 1,000 units/hr, 20 mls/hr Documented by: [id number] Cosigned by: [id number] Admin: 05/22/19 00:51 Dose: 1,000 units/hr, 20 mls/hr Documented by: [id number] Cosigned by: [id number] Sodium Chloride (Nss 1000ml) 1,000 mls @ 80 mls/hr IV .[id number] ANNE Stop: 06/21/19 02:38 Last Infusion: 05/22/19 09:00 Dose: 0 mls/hr Documented by: [id number] Admin: 05/22/19 03:03 Dose: 80 mls/hr Documented by: [id number] Nitroglycerin/Dextrose (Nitroglycerin/D5w 100 Mcg/Ml) 250 mls @ 0 mls/hr IV .Q0M ANNE; Protocol Stop: 06/21/19 12:14 Last Titration: 05/23/19 09:00 Dose: 0 mcg/min, 0 mls/hr Documented by: [id number] Admin: 05/23/19 03:56 Dose: Not Given Documented by: [id number] Titration: 05/22/19 20:00 Dose: 0 mcg/min, 0 mls/hr Documented by: [id number] Titration: 05/22/19 19:45 Dose: 5 mcg/min, 3 mls/hr Documented by: [id number] Titration: 05/22/19 19:30 Dose: 10 mcg/min, 6 mls/hr Documented by: [id number] Titration: 05/22/19 18:57 Dose: 15 mcg/min, 9 mls/hr Documented by: [id number] Cosigned by: [id number] Titration: 05/22/19 17:41 Dose: 15 mcg/min, 9 mls/hr Documented by: [id number] Titration: 05/22/19 16:53 Dose: 30 mcg/min, 18 mls/hr Documented by: [id number] Admin: 05/22/19 14:08 Dose: 25 mcg/min, 15 mls/hr Documented by: [id number] Cosigned by: [id number] Nicardipine HCl 25 mg/ Sodium (Chloride) 250 mls @ 0 mls/hr IV .Q0M ANNE; Protocol Stop: 06/21/19 17:34 Last Titration: 05/23/19 09:00 Dose: 0 mg/hr, 0 mls/hr Documented by: [id number] Admin: 05/23/19 08:29 Dose: Not Given Documented by: [id number] Titration: 05/23/19 08:29 Dose: 0 mg/hr, 0 mls/hr Documented by: [id number] Titration: 05/23/19 07:49 Dose: 5 mg/hr, 50 mls/hr Documented by: [id number] Cosigned by: [id number] Admin: 05/23/19 05:31 Dose: 5 mg/hr, 50 mls/hr Documented by: [id number] Cosigned by: [id number] Titration: 05/23/19 05:16 Dose: 5 mg/hr, 50 mls/hr Documented by: [id number] Cosigned by: [id number] Titration: 05/23/19 03:42 Dose: 5 mg/hr, 50 mls/hr Documented by: [id number] Titration: 05/23/19 02:17 Dose: 2.5 mg/hr, 25 mls/hr Documented by: [id number] Titration: 05/23/19 01:06 Dose: 5 mg/hr, 50 mls/hr Documented by: [id number] Admin: 05/23/19 00:04 Dose: 7.5 mg/hr, 75 mls/hr Documented by: [id number] Cosigned by: [id number] Titration: 05/23/19 00:04 Dose: 7.5 mg/hr, 75 mls/hr Documented by: [id number] Cosigned by: [id number] Titration: 05/22/19 23:45 Dose: 7.5 mg/hr, 75 mls/hr Documented by: [id number] Titration: 05/22/19 22:03 Dose: 10 mg/hr, 100 mls/hr Documented by: [id number] Admin: 05/22/19 21:30 Dose: 7.5 mg/hr, 75 mls/hr Documented by: [id number] Cosigned by: [id number] Titration: 05/22/19 21:15 Dose: 7.5 mg/hr, 75 mls/hr Documented by: [id number] Cosigned by: [id number] Titration: 05/22/19 18:57 Dose: 7.5 mg/hr, 75 mls/hr Documented by: [id number] Cosigned by: [id number] Titration: 05/22/19 18:22 Dose: 7.5 mg/hr, 75 mls/hr Documented by: [id number] Admin: 05/22/19 17:41 Dose: 5 mg/hr, 50 mls/hr Documented by: [id number] Cosigned by: [id number] Sodium Bicarbonate 50 meq/ (Sodium Chloride) 1,050 mls @ 80 mls/hr IV .Q13H8M ANNE Stop: 05/23/19 03:15 Last Infusion: 05/23/19 04:03 Dose: 0 mls/hr Documented by: [id number] Admin: 05/22/19 21:24 Dose: 80 mls/hr Documented by: [id number] Insulin Aspart (Novolog Flexpen) 0 units SC TODAY@0000,0400 [facility]; Protocol Stop: 05/23/19 04:01 Last Admin: 05/23/19 04:00 Dose: Not Given Documented by: [id number] Cosigned by: [id number] Admin: 05/23/19 00:03 Dose: Not Given Documented by: [id number] Cosigned by: [id number] Metoprolol Tartrate (Lopressor) 5 mg IV NOW STA Stop: 05/22/19 00:38 Last Admin: 05/22/19 00:57 Dose: 5 mg Documented by: [id number] Metoprolol Tartrate (Lopressor) 12.5 mg PO BID ANNE Stop: 06/21/19 08:59 Last Admin: 05/22/19 07:49 Dose: 12.5 mg Documented by: [id number] Metoprolol Tartrate (Lopressor) 2.5 mg IV Q4 PRN PRN Reason: Hypertension Stop: 06/21/19 02:38 Last Admin: 05/23/19 16:10 Dose: 2.5 mg Documented by: [id number] Admin: 05/22/19 07:33 Dose: 2.5 mg Documented by: [id number] Metoprolol Tartrate (Lopressor) 2.5 mg IV NOW STA Stop: 05/22/19 03:02 Last Admin: 05/22/19 03:29 Dose: 2.5 mg Documented by: [id number] Metoprolol Tartrate (Lopressor) Confirm Administered Dose 5 mg IV .STK-MED ONE Stop: 05/22/19 03:05 Last Admin: 05/22/19 03:06 Dose: Not Given Documented by: [id number] Metoprolol Tartrate (Lopressor) 5 mg IV NOW STA Stop: 05/22/19 08:22 Last Admin: 05/22/19 08:20 Dose: 5 mg Documented by: [id number] Metoprolol Tartrate (Lopressor) 25 mg PO BID ANNE Stop: 06/21/19 08:59 Last Admin: 05/23/19 07:48 Dose: 25 mg Documented by: [id number] Admin: 05/22/19 20:12 Dose: 25 mg Documented by: [id number] Admin: 05/22/19 10:08 Dose: 25 mg Documented by: [id number] Midazolam HCl (Versed) Confirm Administered Dose 2 mg .ROUTE .STK-MED ONE Stop: 05/22/19 08:01 Last Admin: 05/22/19 10:25 Dose: Not Given Documented by: [id number] Nicardipine HCl (Cardene) Confirm Administered Dose 25 mg .ROUTE .STK-MED ONE Stop: 05/22/19 08:01 Last Admin: 05/22/19 10:24 Dose: Not Given Documented by: [id number] Nifedipine (Procardia) 30 mg PO NOW STA Stop: 05/22/19 17:04 Last Admin: 05/22/19 17:52 Dose: Not Given Documented by: [id number] Nitroglycerin (Nitrostat) 0.4 mg SL UD PRN PRN Reason: Chest Pain Stop: 06/21/19 02:38 Last Admin: 05/22/19 08:06 Dose: 0.4 mg Documented by: [id number] Admin: 05/22/19 08:01 Dose: 0.4 mg Documented by: [id number] Nitroglycerin/Dextrose (Nitroglycerin/D5w 100 Mcg/Ml 20ml Syringe) Confirm Administered Dose 2,000 mcg .ROUTE .STK-MED ONE Stop: 05/22/19 08:03 Last Admin: 05/22/19 09:35 Dose: Not Given Documented by: [id number] Nitroglycerin/Dextrose (Nitroglycerin/D5w 100 Mcg/Ml) Confirm Administered Dose 25 mg .ROUTE .STK-MED ONE Stop: 05/22/19 08:37 Last Admin: 05/22/19 09:29 Dose: 25 mcg Documented by: [id number] Cosigned by: [id number] Medical Decision Making Differential Diagnosis Differential diagnoses includes but is not limited to acute coronary syndrome, myocardial infarction, pericarditis, pulmonary embolus, aortic dissection, pneumothorax, musculoskeletal, shingles, esophageal, pneumonia, bronchitis, COPD/Asthma exacerbation, congestive heart failure, acute coronary syndrome Medical Records Attestation: I reviewed the patient's medical records. Home Medications Current Medication List: was personally reviewed by me Laboratory Data Attestation: I reviewed the patient's lab results. Result diagrams: 05/23/19 06:00 05/23/19 06:00 Lab Results 05/21/19 05/21/19 05/21/19 Range/Units 23:31 23:31 23:31 WBC 9.59 (4.8-10.8) K/uL RBC 3.97 L (4.7-6.1) M/uL Hgb 11.6 L (14.0-18.0) g/dL Hct 36.5 L (42-52) % MCV 91.9 (80-100) fL MCH 29.2 (25-34) pg MCHC 31.8 L (32-36) g/dL RDW Std Deviation 45.9 (36.4-46.3) fL RDW Coeff of Terell 13.6 (11.5-14.5) % Plt Count 211 (130-400) K/uL MPV 9.9 (7.4-10.4) fL Immature Gran % (Auto) 0.4 % Neut % (Auto) 69.1 % Lymph % (Auto) 18.2 % Haskell % (Auto) 9.2 % Eos % (Auto) 2.9 % Baso % (Auto) 0.2 % Immature Gran # (Auto) 0.04 H (0.00-0.02) K/uL Neut # (Auto) 6.62 H (1.4-6.5) K/uL Lymph # (Auto) 1.75 (1.2-3.4) K/uL Haskell # (Auto) 0.88 H (0.11-0.59) K/uL Eos # (Auto) 0.28 (0-0.5) K/uL Baso # (Auto) 0.02 (0-0.2) K/uL PT 10.3 (9.0-12.0) Seconds INR 1.0 (0.9-1.1) APTT (21.0-31.0) Seconds PTT Ratio Sodium 141 (136-145) mmol/L Potassium 4.2 (3.5-5.1) mmol/L Chloride 109 H (98-107) mmol/L Carbon Dioxide 25 (21-32) mmol/L Anion Gap 7.0 (3-11) BUN 23 H (7-18) mg/dl Creatinine 2.49 H (0.6-1.4) mg/dl Est Cr Clr Drug Dosing 41.2 ml/min Est GFR ( Amer) 32.0 Est GFR (Non-Af Amer) 27.6 BUN/Creatinine Ratio 9.4 L (10-20) Glucose 184 H (70-99) mg/dl Calcium 8.4 L (8.5-10.1) mg/dl Magnesium 2.1 (1.8-2.4) mg/dl Total Bilirubin 0.3 (0.2-1) mg/dl AST 29 (15-37) U/L ALT 28 (12-78) U/L Alkaline Phosphatase 165 H (45-117) U/L Troponin I 0.168 H* (0-0.045) ng/ml NT-Pro-B Natriuret Pep 1026 H (0-900) pg/ml Total Protein 7.0 (6.4-8.2) gm/dl Albumin 3.0 L (3.4-5.0) gm/dl Globulin 4.0 (2.5-4.0) gm/dl Albumin/Globulin Ratio 0.8 L (0.9-2) Blood Type Antibody Screen 05/21/19 05/22/19 Range/Units 23:31 01:02 WBC (4.8-10.8) K/uL RBC (4.7-6.1) M/uL Hgb (14.0-18.0) g/dL Hct (42-52) % MCV (80-100) fL MCH (25-34) pg MCHC (32-36) g/dL RDW Std Deviation (36.4-46.3) fL RDW Coeff of Terell (11.5-14.5) % Plt Count (130-400) K/uL MPV (7.4-10.4) fL Immature Gran % (Auto) % Neut % (Auto) % Lymph % (Auto) % Haskell % (Auto) % Eos % (Auto) % Baso % (Auto) % Immature Gran # (Auto) (0.00-0.02) K/uL Neut # (Auto) (1.4-6.5) K/uL Lymph # (Auto) (1.2-3.4) K/uL Haskell # (Auto) (0.11-0.59) K/uL Eos # (Auto) (0-0.5) K/uL Baso # (Auto) (0-0.2) K/uL PT (9.0-12.0) Seconds INR (0.9-1.1) APTT 26.3 (21.0-31.0) Seconds PTT Ratio 1.0 Sodium (136-145) mmol/L Potassium (3.5-5.1) mmol/L Chloride (98-107) mmol/L Carbon Dioxide (21-32) mmol/L Anion Gap (3-11) BUN (7-18) mg/dl Creatinine (0.6-1.4) mg/dl Est Cr Clr Drug Dosing ml/min Est GFR ( Amer) Est GFR (Non-Af Amer) BUN/Creatinine Ratio (10-20) Glucose (70-99) mg/dl Calcium (8.5-10.1) mg/dl Magnesium (1.8-2.4) mg/dl Total Bilirubin (0.2-1) mg/dl AST (15-37) U/L ALT (12-78) U/L Alkaline Phosphatase (45-117) U/L Troponin I (0-0.045) ng/ml NT-Pro-B Natriuret Pep (0-900) pg/ml Total Protein (6.4-8.2) gm/dl Albumin (3.4-5.0) gm/dl Globulin (2.5-4.0) gm/dl Albumin/Globulin Ratio (0.9-2) Blood Type B Positive Antibody Screen NEGATIVE Imaging Data Attestation: I personally reviewed and interpreted this imaging study as follows: My Impression: X-Ray Chest and Right ribs 3 views: Ribs: No obvious fracture. Chest: No cardiomegaly, no effusions, no wide mediastinum, no acute pulmonary edema, no pneumothorax, no focal consolidation. ECG Data Attestation: I personally reviewed and interpreted this ECG as follows: Indication: SOB/dyspnea Rate (beats per minute): 91 Rhythm: normal sinus Findings: + other (normal axis, normal intervals); no ST depression, no T-wave inversion, no ST elevation and no ectopy Blood Pressure Blood Pressure Findings: Elevated blood pressure Blood Pressure Disposition: further management by hospitalist MDM Narrative Pt here well appearing and no symptoms while at rest. VS stable. Labs reassuring. Creatinine stable compared to prior. Pt with elevated troponin, no ekg changes. No prior troponin elevation despite CKD. BP elevated but improving spontaneously. Pt given asa, started on heparin, given dose of metoprolol. No symptoms while here. Given hx and reported exertional symptoms, I feel pt likely has unstable angina. Pt aware of results and in agreement with plan. I feel PE less likely. I do not suspect dissection, tamponade, effusion, occult pneumonia or other infectious etiology. Impression & Plan Unstable angina, Chronic kidney disease, Dyspnea, HTN (hypertension) Critical Care Time Critical Care Time: Yes Total Critical Care Time: 35 I have personally spent 35 minutes of critical care time in the direct management of this patient. This includes bedside care, interpretation of diagnostic studies, and testing, discussion with consultants, patient, and family members, and other required patient management activities. This 35 minutes is in excess of all separately billable procedures. Discharge Plan Visit Data *Final* Discharge Date/Time: 05/22/19 01:35 Chief Complaint: Shortness of Breath/Dyspnea Stated Complaint: SOB, CHEST PAIN ED Provider: Pheasant,Rekha S Discharge Problem: Unstable angina, Chronic kidney disease, Dyspnea, HTN (hypertension) Patient Disposition: Admitted As Inpatient Discharge Instructions Interventions: ED Discharge Assessment Last Done: 05/22/19 01:35 Discharge Problem: Chronic kidney disease Qualifiers: Chronic kidney disease stage: unspecified stage Qualified Code(s): N18.9 - Chronic kidney disease, unspecified Dyspnea Qualifiers: Dyspnea type: unspecified Qualified Code(s): R06.00 - Dyspnea, unspecified HTN (hypertension) Qualifiers: Hypertension type: unspecified Qualified Code(s): I10 - Essential (primary) hypertension The scribe's documentation has been prepared under my direction and personally reviewed by me in its entirety. I confirm that the note above accurately reflects all work, treatment, procedures, and medical decision making performed by me.
[2019-05-23] MEDS: carvediloL 6.25 MG TAB PO SCH (20:09)
[2019-05-23] MEDS: SIMVASTATIN 20 MG TAB PO SCH (20:10)
[2019-05-23] MEDS: INSULIN GLARGINE 100 UNIT/ML VIAL SC SCH (20:17)
[2019-05-24] MEDS ORDERED: INSULIN ASPART 100 UNITS/ML 3 ML PEN SC ONE (02:00)
[2019-05-24] MEDS: METOPROLOL TARTRATE 1 MG/ML VIAL IV PRN ×2 (03:45→15:44)
[2019-05-24 06:18] LABS: Hematocrit (blood only) 35.7 % (42-52); Hemoglobin 11.5 g/dL (14.0-18.0); Mean Corpuscular Hemoglobin 29.4 pg (25-34); Mean Corpuscular Hgb Conc 32.2 g/dL (32-36); Mean Corpuscular Volume 91.3 fL (80-100); Mean Platelet Volume 9.5 fL (7.4-10.4); Platelet Count 219 K/uL (130-400); RDW Coefficient of Variation 13.6 % (11.5-14.5); RDW Standard Deviation 44.9 fL (36.4-46.3); Red Blood Count 3.91 M/uL (4.7-6.1); White Blood Count 10.83 K/uL (4.8-10.8)
[2019-05-24 06:55] LABS: BUN Creatinine Ratio 12.5 (10-20); Calcium 8.5 mg/dl (8.5-10.1); Creatinine Clr Calc Pharmacy 42.4 ml/min; Est GFR (African American) 32.8; Est GFR (Non-African American) 28.3; Potassium 4.4 mmol/L (3.5-5.1)
--- NOTE | 2019-05-24 07:16 | XRay Report ---
XR chest 1V portable CLINICAL HISTORY: SOB/CHF COMPARISON STUDY: Chest radiograph and right rib series May 22, 2019. FINDINGS: Lung volumes are normal. Lungs are clear. There is no pneumothorax or pleural effusion. The heart is mildly enlarged. Mediastinal contours are otherwise normal. There is no evidence for pulmon parul edema. Several right rib fractures are better depicted on right rib series performed May 22, 2019. IMPRESSION: No acute cardiopulmonary findings. Electronically signed by: Juan Jose Titus M.D. 05/24/2019 7:14 AM
[2019-05-24] MEDS: CARBOHYDRATES FOR HYPOGLYCEMIA PO PRN (07:38)
[2019-05-24] MEDS: CHOLECALCIFEROL 1,000 UNITS TAB PO SCH (08:02)
[2019-05-24] MEDS: ASPIRIN 81 MG ECTAB PO SCH (08:02)
[2019-05-24] MEDS: carvediloL 6.25 MG TAB PO SCH (08:02)
[2019-05-24] MEDS: TAMSULOSIN HCL 0.4 MG CAP PO SCH (08:03)
[2019-05-24] MEDS: HEPARIN SOD 5,000 UNIT/0.5 ML VIAL SQ SCH ×2 (08:03→21:37)
[2019-05-24] MEDS: PRASugrel TAB 10 MG TAB PO SCH (08:03)
[2019-05-24] MEDS: INSULIN ASPART 100 UNITS/ML 3 ML PEN SC SCH ×4 (08:58→21:37)
--- NOTE | 2019-05-24 09:07 | Pharmacy Report ---
Pharmacy Glycemic Short Note 2 - Date of Service May 24, 2019 - Glycemic Short BSG Results (Last 24 hours): 05/23/19 05/23/19 05/24/19 16:12 20:16 02:09 Glucose POC Glucose 158 H 135 H 84 05/24/19 05/24/19 05/24/19 06:05 07:31 07:33 Glucose 69 L POC Glucose 60 L* 57 L* 05/24/19 07:53 Glucose POC Glucose 78 Outpatient Anti-diabetic Regimen: * Tresiba 72 units SC HS * Novolog units TIDM plus SSI * Linagliptin 5 mg po daily * A1c = 8.0% on 05/22/19 The patient is currently receiving: * Basal insulin: Lantus 36 units Q HS * Correctional Insulin: Novolog SQ ACHS + 0200; goal range 110-140; correction factor 30mg/dL/unit * Prandial insulin: 1 unit per 10 grams CHO consumed with meals * Oral Agents: on hold for admission Risk Factors for Insulin Resistance: * Recent Surgery: POD 2 s/p cardiac cath * Diet: T2DM ASSESSMENT: 05/24 * BSGs have ranged 57-161mg/dL over the last 24 hrs * Over the last 24 hrs 63 units SQ insulin administered. Patient is tolerating a diet well. * Fasting hypoglycemia noted this AM with 36 units of Lantus on board. Will reduce basal dose by 20% * Post-prandial BSGs well controlled with current CF / CR doses. Will continue the same and monitor post-prandial trend PLAN FOR INPATIENT GLYCEMIC CONTROL: * Holding outpatient oral diabetes medications (Linagliptin) * Basal insulin: * 29 units SQ HS * Bolus insulin * NovoLog per scale ACHS or Q6hrs while NPO with one overnight check * Goal Range: Low 110 mg/dL - High 140 mg/dL * Correction Factor: 30 mg/dL/unit * Nutritional / Prandial insulin per carb ratio of 1 unit per 10 grams CHO consumed
[2019-05-24] MEDS: ISOSORBIDE MONO EXTENDED REL 60 MG TABCR PO SCH (09:39)
--- NOTE | 2019-05-24 10:07 | Nephrology Progress Note ---
Date of Service May 24, 2019 Assessment & Plan (1) Hypertensive emergency: -continue prn metoprolol 2.5 mg IV -goal sbp today is 130-150s -upped coreg to 12.5 mg bid starting this AM; added nifedipine long acting 30 mg bid w/ hold parameters -would not add diuretic or resume acei at this time given that he just had IV contrast and is already at high risk for KELLI (2) NSTEMI (non-ST elevated myocardial infarction): per cardiology and primary service; for medical mgt (3) CKD (chronic kidney disease) stage 3, GFR 30-59 ml/min: baseline creatinine 2.1-2.3; high risk for KELLI on CKD after cath and given lability of bp in setting of vol OL and solitary kidney but for now just above baseline bland urine sediment on presentation w/ exception of proteinuria; pt w/ 100-300 mg albuminuria past few OP checks w/ PCP 2017 - May 2019 -hold ACEI given risk for kelli which will persist 48 hrs after IV dye exposure -daily bmp -ensure he resumes OP f/u in CKD clinic after d/c (4) Solitary kidney, 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; increases risk for KELLI, for OP proteinuria Subjective contto to deny sob, chest pain, healy, edema, n/v, voiding concerns; sbp has been elevated since last evening Review of Systems Review of Systems: All systems reviewed & are unremarkable except as noted in HPI & below Physical Exam Constitutional: well developed, well nourished and + obese up in chair on RA Eyes: EOM intact bilaterally ENMT: Ears: no external ear abnormality Nose: no external nose abnormality Mouth: + dry oral mucous membranes Neck: no nuchal rigidity Respiratory: normal respiratory effort; no respiratory distress and no labored breathing Auscultation: + diminished lung sounds; no wheezes Cardiovascular: RRR, no murmur, no edema Gastrointestinal (Abdomen): Inspection/Auscultation: normal bowel sounds Percussion/Palpation: abdomen soft; abdomen nontender Musculoskeletal: Extremities: strength 5/5 throughout (but struggles to maneuver for exam) Skin: no rashes, warm and dry Psychiatric: Orientation: alert and oriented x 3 Eye Contact: + fair eye contact Speech: normal rate/rhythm/volume of speech (but limited amount) Affect: + blunted affect Results & Data Vital Signs (Past 12 Hours) Vital Signs Temp Pulse Pulse Pulse Resp BP BP 05/24/19 07:07 36.8 C 111 H 20 180/107 H 05/24/19 05:04 98 H 178/92 H 05/24/19 03:47 100 H 05/24/19 03:45 97 H 192/98 H 05/24/19 03:27 36.8 C 105 H 20 192/98 H 05/23/19 23:39 101 H 05/23/19 23:28 37.4 C 101 H 18 163/80 H 05/23/19 22:47 118 H 197/94 H 05/23/19 22:09 36.8 C Pulse Ox Pulse Ox 05/24/19 07:07 98 05/24/19 05:04 05/24/19 03:47 97 05/24/19 03:45 05/24/19 03:27 97 05/23/19 23:39 95 05/23/19 23:28 95 05/23/19 22:47 05/23/19 22:09 Laboratory Results 05/24/19 06:06 05/24/19 06:05
--- NOTE | 2019-05-24 10:12 | Nuclear Medicine Report ---
NUCLEAR PULMONARY VENTILATION/PERFUSION SCAN CLINICAL HISTORY: Dyspnea. COMPARISON STUDY: Chest x-ray dated 05/24/2019. TECHNIQUE: Initially, ventilation images of both lungs are obtained following the inhalation of 33 mC i of aerosolized technetium 99m DTPA. Subsequently, perfusion images of both lungs were obtained foll owing the IV administration of 6 mCi of technetium 99m MAA. Ventilation and perfusion images were acq uired in the anterior, posterior, and oblique projections. FINDINGS: A chest x-ray performed 05/24/2019 shows that the lungs are clear. The ventilation of both lungs is normal and symmetric. Inhaled tracer is noted in the stomach. No perfusion defects are identified on the perfusion imaging. IMPRESSION: Findings are considered low probability for pulmonary embolus. Electronically signed by: Jens Harry M.D. 05/24/2019 10:10 AM
[2019-05-24] MEDS ORDERED: carvediloL 6.25 MG TAB PO ONE (10:23)
[2019-05-24] MEDS: NIFEdipine EXTENDED REL 30 MG TABCR PO SCH ×2 (11:25→20:05)
--- NOTE | 2019-05-24 11:32 | Cardiology Progress Note ---
Date of Service May 24, 2019 Assessment & Plan (1) Hypertensive emergency: Suspect pt's home BP medication program has not been controlling his BP effectively recently. Coreg increased to 12.5 mg BID. Nifedipine added. BP repeated at 11:20 am, was 157/88 mm Hg, improved compared to overnight. Discussed with Dr Dahl. (2) Ischemic cardiomyopathy: Coreg added in place of metoprolol. Stable CAD on cath, chronic distal LAD occlusion (long standing h/o scar without viability in this territory) Branch vessel distal RCA disease for which medical RX planned. Disposition: remain in hospital today. Pt plans to follow up with cardio and Nephro locally, Subjective CC: follow up chest pain, shortness of breath Subjective:Patient reports of feeling very well, Bp still above goal. Coreg started last night. Telemetry reveals SR and sinus tachcardia in range of 80-110 bpm. Review of Systems Review of Systems: All systems reviewed & are unremarkable except as noted in HPI & below Physical Exam Physical Exam: Temp Pulse Resp BP Pulse Ox 36.8 C 86 19 157/88 H 99 05/24/19 11:23 05/24/19 11:23 05/24/19 11:23 05/24/19 11:23 05/24/19 11:23 Constitutional: WD/WN, vitals as above Respiratory: normal respiratory effort, lungs clear to auscultation Cardiovascular: RRR, no murmur, no edema Gastrointestinal (Abdomen): normal bowel sounds, soft, nontender, no hepatosplenomegaly Neurologic: PERRL, EOMI, accommodation nl, no face palsy, no dysarthria Results & Data Vital Signs (Past 12 Hours) Vital Signs Temp Pulse Pulse Pulse Resp BP BP 05/24/19 11:23 36.8 C 86 19 157/88 H 05/24/19 08:00 86 05/24/19 07:07 36.8 C 111 H 20 180/107 H 05/24/19 05:04 98 H 178/92 H 05/24/19 03:47 100 H 05/24/19 03:45 97 H 192/98 H 05/24/19 03:27 36.8 C 105 H 20 192/98 H 05/23/19 23:39 101 H Pulse Ox Pulse Ox 05/24/19 11:23 99 05/24/19 08:00 05/24/19 07:07 98 05/24/19 05:04 05/24/19 03:47 97 05/24/19 03:45 05/24/19 03:27 97 05/23/19 23:39 95 Laboratory Results CBC 05/24/19 Range/Units 06:06 WBC 10.83 H (4.8-10.8) K/uL RBC 3.91 L (4.7-6.1) M/uL Hgb 11.5 L (14.0-18.0) g/dL Hct 35.7 L (42-52) % Plt Count 219 (130-400) K/uL Comprehensive Metabolic Panel 05/24/19 Range/Units 06:05 Sodium 142 (136-145) mmol/L Potassium 4.4 (3.5-5.1) mmol/L Chloride 110 H (98-107) mmol/L Carbon Dioxide 28 (21-32) mmol/L BUN 30 H (7-18) mg/dl Creatinine 2.44 H (0.6-1.4) mg/dl Glucose 69 L (70-99) mg/dl Calcium 8.5 (8.5-10.1) mg/dl Intake and Output 05/23/19 05/24/19 05/24/19 22:59 06:59 14:59 Intake Total 240 / 1069.750 Output Total 350 / 850 Balance -110 / 219.750 Intake: Oral 240 / 920 Output: Urine 350 / 850 Other: # Unmeasured Voids 1 1 Weight 114.8 kg
--- NOTE | 2019-05-24 17:19 | Hospitalist Progress Note ---
Date of Service May 24, 2019 Assessment & Plan (1) Hypertensive emergency: BP not at goal yet Coreg increased to 12.5mg po BID Nifedipine 30mg po BID started continue to monitor (2) NSTEMI (non-ST elevated myocardial infarction): in the setting of HTN urgency Cardiac cath : LM -luminal irregularities LAD -20 to 30% ostial, diffuse 50% mid at takeoff of first septal extending past takeoff of second diagonal. 99% earlydistal and 99% stenosis as wraps around apex. Bifurcating first septal with high-grade ostial stenosis. Moderate caliber second diagonal with luminal irregularities and LAUREN-3 flow. Circumflex -moderate caliber vessel, 20 to 30% ostial. Very small OM 2 occluded with partial filling distally via left to left collaterals. Very small left PLB with 95% stenosis. RCA -dominant, patent proximal to mid stents, latemid luminal irregularities, 30 to 40% distal stenosis prior to takeoff of right PDA. LVEDP -30-elevated Summary: 1. Severe single vessel chronic coronary artery disease -50% diffuse mid LAD, sequential 99% distal LAD lesions 2. 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 HISTORY OF MELANOMA IN BACK Status post wide margin resection No recent recurrence as per patient CODE STATUS: Full code DVT prophylaxis: Subcu heparin Disposition: monitor in Telemetry Subjective ff up for chest pain seen resting in bedside chair, comfortable in good spirits states he feels fine overall denies chest pain, dyspnea, headache, dizziness no other symptoms+ Review of Systems Review of Systems: All systems reviewed & are unremarkable except as noted in HPI & below Physical Exam Physical Exam: General- oriented x 3, not in distress, speaks in sentences with no effort or accessory muscle use Head- atraumatic Eyes- PERRL, EOMI, anicteric ENT- oropharynx clear Neck- supple, no JVD, no adenopathy, no thyromegaly; carotids +2/2, no bruits appreciated Lungs- clear to auscultation bilaterally, no rales/wheezes Heart- normal rate, regular rhythm; no murmur, no gallop, no rub appreciated Abdomen- normal bowel sounds, nondistended, soft, nontender, no masses or hepatosplenomegaly Extremities- mild pretibial edema, no calf tenderness; peripheral pulses intact Neuro- alert, oriented x 3; CN 2-12 grossly intact; motor 5/5 bilaterally;sensation 100% on all extremities; no other gross focal neurologic deficits Skin- warm & dry Results & Data Vital Signs (Past 12 Hours) Vital Signs Temp Pulse Pulse Resp BP BP Pulse Ox 05/24/19 16:00 83 05/24/19 15:44 163/78 H 05/24/19 15:35 36.7 C 88 18 163/78 H 97 05/24/19 11:23 36.8 C 86 19 157/88 H 99 05/24/19 08:00 86 05/24/19 07:07 36.8 C 111 H 20 180/107 H 98 Laboratory Results Laboratory Results - last 24 hr 05/23/19 05/24/19 05/24/19 20:16 02:09 06:05 WBC RBC Hgb Hct MCV MCH MCHC RDW Std Deviation RDW Coeff of Terell Plt Count MPV Sodium 142 Potassium 4.4 Chloride 110 H Carbon Dioxide 28 Anion Gap 4.0 BUN 30 H Creatinine 2.44 H Est Cr Clr Drug Dosing 42.4 Est GFR ( Amer) 32.8 Est GFR (Non-Af Amer) 28.3 BUN/Creatinine Ratio 12.5 Glucose 69 L POC Glucose 135 H 84 Calcium 8.5 05/24/19 05/24/19 05/24/19 06:06 07:31 07:33 WBC 10.83 H RBC 3.91 L Hgb 11.5 L Hct 35.7 L MCV 91.3 MCH 29.4 MCHC 32.2 RDW Std Deviation 44.9 RDW Coeff of Terell 13.6 Plt Count 219 MPV 9.5 Sodium Potassium Chloride Carbon Dioxide Anion Gap BUN Creatinine Est Cr Clr Drug Dosing Est GFR ( Amer) Est GFR (Non-Af Amer) BUN/Creatinine Ratio Glucose POC Glucose 60 L* 57 L* Calcium 05/24/19 05/24/19 05/24/19 07:53 11:21 16:23 WBC RBC Hgb Hct MCV MCH MCHC RDW Std Deviation RDW Coeff of Terell Plt Count MPV Sodium Potassium Chloride Carbon Dioxide Anion Gap BUN Creatinine Est Cr Clr Drug Dosing Est GFR ( Amer) Est GFR (Non-Af Amer) BUN/Creatinine Ratio Glucose POC Glucose 78 155 H 96 Calcium
[2019-05-24] MEDS: ACETAMINOPHEN 325 MG TAB PO PRN (19:47)
[2019-05-24] MEDS: SIMVASTATIN 20 MG TAB PO SCH (20:06)
[2019-05-24] MEDS ORDERED: carvediloL 12.5 MG TAB PO SCH ×2 (21:00)
[2019-05-24] MEDS ORDERED: INSULIN GLARGINE 100 UNIT/ML VIAL SC SCH (21:00)
[2019-05-25 05:44] LABS: Hematocrit (blood only) 35.3 % (42-52); Hemoglobin 11.7 g/dL (14.0-18.0); Mean Corpuscular Hemoglobin 29.8 pg (25-34); Mean Corpuscular Hgb Conc 33.1 g/dL (32-36); Mean Corpuscular Volume 90.1 fL (80-100); Mean Platelet Volume 9.5 fL (7.4-10.4); Platelet Count 200 K/uL (130-400); RDW Coefficient of Variation 13.4 % (11.5-14.5); Red Blood Count 3.92 M/uL (4.7-6.1); White Blood Count 9.65 K/uL (4.8-10.8)
[2019-05-25 06:10] LABS: BUN Creatinine Ratio 14.2 (10-20); Calcium 8.7 mg/dl (8.5-10.1); Creatinine Clr Calc Pharmacy 44.4 ml/min; Est GFR (African American) 34.7; Est GFR (Non-African American) 29.9; Potassium 4.2 mmol/L (3.5-5.1)
--- NOTE | 2019-05-25 07:54 | Nephrology Progress Note ---
Date of Service May 25, 2019 Assessment & Plan (1) HTN (hypertension): -continue prn metoprolol 2.5 mg IV -goal sbp today is 130-140s -give coreg 12.5 mg bid starting this AM; added nifedipine long acting 30 mg bid but moved AM dose today nifedipine to late AM -added lisinopril 10 mg daily to am meds (ramipril, his home med, not on formulary) -would not add diuretic at this time given that he is still at risk for KELLI Present on Admission?: Yes (2) NSTEMI (non-ST elevated myocardial infarction): per cardiology and primary service; for medical mgt Present on Admission?: Yes (3) CKD (chronic kidney disease) stage 3, GFR 30-59 ml/min: baseline creatinine 2.1-2.3; high risk for KELLI on CKD after cath and given lability of bp in setting of vol OL and solitary kidney but for now at baseline bland urine sediment on presentation w/ exception of proteinuria; pt w/ 100-300 mg albuminuria past few OP checks w/ PCP 2017 - May 2019 -trial of lower dose ACEI today -daily bmp -ensure he resumes OP f/u in CKD clinic after d/c (4) Solitary kidney, 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; increases risk for KELLI, for OP proteinuria Subjective seen on rounds this am; no distress; no further chest pain or healy or sob or urinary c/o Review of Systems Review of Systems: All systems reviewed & are unremarkable except as noted in HPI & below Physical Exam Constitutional: well developed, well nourished and + obese sitting in bed on RA Eyes: EOM intact bilaterally ENMT: Ears: no external ear abnormality Nose: no external nose abnormality Mouth: + dry oral mucous membranes Neck: no nuchal rigidity Respiratory: normal respiratory effort; no respiratory distress and no labored breathing Auscultation: + diminished lung sounds; no wheezes Cardiovascular: RRR, no murmur, no edema Gastrointestinal (Abdomen): Inspection/Auscultation: normal bowel sounds Percussion/Palpation: abdomen soft; abdomen nontender Musculoskeletal: Extremities: strength 5/5 throughout Skin: no rashes, warm and dry Neurologic: huffman, fluent speech Psychiatric: Orientation: alert and oriented x 3 Eye Contact: + fair eye contact Speech: normal rate/rhythm/volume of speech Affect: + blunted affect Results & Data Vital Signs (Past 12 Hours) Vital Signs Temp Pulse Resp BP BP Pulse Ox 05/25/19 07:16 36.5 C 89 20 141/75 H 96 05/25/19 03:59 36.6 C 85 19 129/67 92 05/24/19 23:59 36.5 C 80 20 144/83 H 90 05/24/19 19:52 36.6 C 84 17 166/80 H 95 Laboratory Results 05/25/19 05:24 05/25/19 05:24 (1) HTN (hypertension) Hypertension type: unspecified Qualified Code(s): I10 - Essential (primary) hypertension
[2019-05-25] MEDS: ISOSORBIDE MONO EXTENDED REL 60 MG TABCR PO SCH (09:03)
[2019-05-25] MEDS: CHOLECALCIFEROL 1,000 UNITS TAB PO SCH (09:03)
[2019-05-25] MEDS: TAMSULOSIN HCL 0.4 MG CAP PO SCH (09:04)
[2019-05-25] MEDS: ASPIRIN 81 MG ECTAB PO SCH (09:05)
[2019-05-25] MEDS: PRASugrel TAB 10 MG TAB PO SCH (09:05)
[2019-05-25] MEDS: HEPARIN SOD 5,000 UNIT/0.5 ML VIAL SQ SCH ×2 (09:29→20:34)
[2019-05-25] MEDS: INSULIN ASPART 100 UNITS/ML 3 ML PEN SC SCH ×4 (09:30→20:40)
[2019-05-25] MEDS: lisinopriL 10 MG TAB PO SCH (09:32)
[2019-05-25] MEDS: NIFEdipine EXTENDED REL 30 MG TABCR PO SCH ×2 (09:32→20:43)
[2019-05-25] MEDS: carvediloL 12.5 MG TAB PO SCH ×2 (09:32→20:32)
--- NOTE | 2019-05-25 11:34 | Cardiology Progress Note ---
Date of Service May 25, 2019 Assessment & Plan (1) Hypertensive emergency: Suspect pt's home BP medication program has not been controlling his BP effectively recently. Coreg increased to 18.75, nifedipine also added this admission. Blood pressures trending toward improvement. Patient asymptomatic. Does not appear to be volume overloaded on exam. Recommend ongoing observation, I am optimistic that he will be stable for discharge tomorrow 05/26/1990. (2) Ischemic cardiomyopathy: Coreg added in place of metoprolol. Stable CAD on cath, chronic distal LAD occlusion (long standing h/o scar without viability in this territory) Branch vessel distal RCA disease for which medical RX planned. Disposition: remain in hospital today. Pt plans to follow up with cardio and Nephro locally, Subjective CC: follow up chest pain, shortness of breath Subjective:Pressures trending toward improvement. Patient was observed to have sinus tachycardia with getting up to wash himself and use the bathroom, at rest, his heart rates are back in the range of 79 to 85 bpm. Review of Systems Review of Systems: All systems reviewed & are unremarkable except as noted in HPI & below Physical Exam Constitutional: WD/WN, vitals as above Respiratory: normal respiratory effort, lungs clear to auscultation Cardiovascular: RRR, no murmur, no edema Rate/Rhythm: regular rate Heart Sounds: no murmur Vessels: + JVD Gastrointestinal (Abdomen): normal bowel sounds, soft, nontender, no hepatosplenomegaly Neurologic: PERRL, EOMI, accommodation nl, no face palsy, no dysarthria Results & Data Vital Signs (Past 12 Hours) Vital Signs Temp Pulse Pulse Resp BP BP Pulse Ox 05/25/19 11:02 36.6 C 79 20 116/85 96 05/25/19 08:00 94 H 05/25/19 07:16 36.5 C 89 20 141/75 H 96 05/25/19 03:59 36.6 C 85 19 129/67 92 05/24/19 23:59 36.5 C 80 20 144/83 H 90
--- NOTE | 2019-05-25 13:23 | Pharmacy Report ---
Pharmacy Glycemic Short Note 2 - Date of Service May 25, 2019 - Glycemic Short BSG Results (Last 24 hours): 05/24/19 05/24/19 05/25/19 16:23 20:12 05:24 Glucose 76 POC Glucose 96 135 H 05/25/19 05/25/19 07:59 11:01 Glucose POC Glucose 82 183 H Outpatient Anti-diabetic Regimen: * Tresiba 72 units SC HS * Novolog units TIDM plus SSI * Linagliptin 5 mg po daily * A1c = 8.0% on 05/22/19 The patient is currently receiving: * Basal insulin: Lantus 29 units Q HS * Correctional Insulin: Novolog SQ ACHS; goal range 110-140; correction factor 30mg/dL/unit * Prandial insulin: 1 unit per 10 grams CHO consumed with meals * Oral Agents: on hold for admission Risk Factors for Insulin Resistance: * Recent Surgery: POD 3 s/p cardiac cath * Diet: T2DM ASSESSMENT: 05/25 * BSGs have ranged 60-155 mg/dL over the last 24 hrs * Over the last 24 hours Mr. Burgos received 42 units SQ insulin. (29 units of basal, 13 units of bolus) * Fasting bsg was 76 mg/dL this morning. Will decrease tonight's basal dose to target a higher fasting bsg. This will also help to balance the basal/bolus ratio. * Today's breakfast bolus dose was given late which caused the lunch bsg to be above goal. * Post-prandial BSGs reasonably controlled with current CF / CR doses. Will continue the same and monitor post-prandial trend. PLAN FOR INPATIENT GLYCEMIC CONTROL: * Holding outpatient oral diabetes medications (Linagliptin) * Basal insulin: * 25 units SQ HS * Bolus insulin * NovoLog per scale ACHS or Q6hrs while NPO with one overnight check * Goal Range: Low 110 mg/dL - High 140 mg/dL * Correction Factor: 30 mg/dL/unit * Nutritional / Prandial insulin per carb ratio of 1 unit per 10 grams CHO consumed
--- NOTE | 2019-05-25 20:28 | Hospitalist Progress Note ---
Date of Service May 25, 2019 Assessment & Plan (1) Hypertensive emergency: BP improving Coreg increased to 12.5mg po BID Nifedipine 30mg po BID started Lisinopril 10mg po daily started continue to monitor (2) NSTEMI (non-ST elevated myocardial infarction): in the setting of HTN urgency Cardiac cath : LM -luminal irregularities LAD -20 to 30% ostial, diffuse 50% mid at takeoff of first septal extending past takeoff of second diagonal. 99% earlydistal and 99% stenosis as wraps around apex. Bifurcating first septal with high-grade ostial stenosis. Moderate caliber second diagonal with luminal irregularities and LAUREN-3 flow. Circumflex -moderate caliber vessel, 20 to 30% ostial. Very small OM 2 occluded with partial filling distally via left to left collaterals. Very small left PLB with 95% stenosis. RCA -dominant, patent proximal to mid stents, latemid luminal irregularities, 30 to 40% distal stenosis prior to takeoff of right PDA. LVEDP -30-elevated Summary: 1. Severe single vessel chronic coronary artery disease -50% diffuse mid LAD, sequential 99% distal LAD lesions 2. 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 HISTORY OF MELANOMA IN BACK Status post wide margin resection No recent recurrence as per patient CODE STATUS: Full code DVT prophylaxis: Subcu heparin Disposition: monitor in Telemetry Subjective ff up for chest pain, HTN seen resting in bed, comfortable in good spirits states he feels fine overall no recurrence of chest pain no dizziness, weakness no other symptoms Review of Systems Review of Systems: All systems reviewed & are unremarkable except as noted in HPI & below Physical Exam Physical Exam: General- oriented x 3, not in distress, speaks in sentences with no effort or accessory muscle use Eyes- anicteric Neck- no JVD Lungs- clear breath sounds bilaterally, no rales/wheezes Heart- normal rate, regular rhythm; no murmurs Abdomen- normal bowel sounds, nondistended, soft, nontender Extremities- no pretibial edema, no calf tenderness Neuro- alert, oriented x 3; no gross focal neurologic deficits Skin- warm & dry Results & Data Vital Signs (Past 12 Hours) Vital Signs Temp Pulse Pulse Resp BP Pulse Ox 05/25/19 16:00 78 05/25/19 15:56 36.7 C 80 16 153/72 H 94 05/25/19 11:02 36.6 C 79 20 116/85 96 Laboratory Results Laboratory Results - last 24 hr 05/25/19 05/25/19 05/25/19 05:24 05:24 07:59 WBC 9.65 RBC 3.92 L Hgb 11.7 L Hct 35.3 L MCV 90.1 MCH 29.8 MCHC 33.1 RDW Std Deviation 44.0 RDW Coeff of Terell 13.4 Plt Count 200 MPV 9.5 Sodium 141 Potassium 4.2 Chloride 110 H Carbon Dioxide 25 Anion Gap 6.0 BUN 33 H Creatinine 2.33 H Est Cr Clr Drug Dosing 44.4 Est GFR ( Amer) 34.7 Est GFR (Non-Af Amer) 29.9 BUN/Creatinine Ratio 14.2 Glucose 76 POC Glucose 82 Calcium 8.7 05/25/19 05/25/19 11:01 16:40 WBC RBC Hgb Hct MCV MCH MCHC RDW Std Deviation RDW Coeff of Terell Plt Count MPV Sodium Potassium Chloride Carbon Dioxide Anion Gap BUN Creatinine Est Cr Clr Drug Dosing Est GFR ( Amer) Est GFR (Non-Af Amer) BUN/Creatinine Ratio Glucose POC Glucose 183 H 81 Calcium
[2019-05-25] MEDS: SIMVASTATIN 20 MG TAB PO SCH (20:43)
[2019-05-25] MEDS: METOPROLOL TARTRATE 1 MG/ML VIAL IV PRN (20:49)
[2019-05-25] MEDS ORDERED: INSULIN GLARGINE 100 UNIT/ML VIAL SC SCH (21:00)
[2019-05-25] MEDS ORDERED: carvediloL 6.25 MG TAB PO STA (21:18)
[2019-05-26] MEDS: CARBOHYDRATES FOR HYPOGLYCEMIA PO PRN (03:21)
--- NOTE | 2019-05-26 07:29 | Nephrology Progress Note ---
Date of Service May 26, 2019 Assessment & Plan (1) HTN (hypertension): -goal sbp today remains 130-140s > at goal all day -give coreg 12.5 mg bid -cont nifedipine 30 mg hs -cont lisinopril 10 mg daily to am meds (at d/c resume OP 5 mg daily ramipril, his home med, not on formulary) -consider torsemide if needed and labs permit at OP f/u (2) NSTEMI (non-ST elevated myocardial infarction): per cardiology and primary service; for medical mgt (3) CKD (chronic kidney disease) stage 3, GFR 30-59 ml/min: baseline creatinine 2.1-2.3; high risk for KELLI on CKD after cath and given lability of bp in setting of vol OL and solitary kidney but for now at baseline; thankfully though he avoided this bland urine sediment on presentation w/ exception of proteinuria; pt w/ 100-300 mg albuminuria past few OP checks w/ PCP 2017 - May 2019 -ACEI resumed 05/25 -daily bmp >>today's labs stable -has bmp ordered for 05/29 in [facility] by cardiology -ensure he resumes OP f/u in CKD clinic after d/c -- welcome to est care in our clinics though he has OP marketing administrator just has not seen him/her>>he desires to est w/ me in clinic >>>>at d/c ensure he goes out on 81 mg daily ASA not 162 mg pls (4) Solitary kidney, 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; increases risk for KELLI, for OP proteinuria Subjective started on 02NC again last evening but only hs; on RA when I evaluated him this afternoon at 1550 he was on RA, had no c/o sob, edema, chest pain; sbp in 130- 140s systolic through the day started on 02NC again last evening Review of Systems Review of Systems: All systems reviewed & are unremarkable except as noted in HPI & below Physical Exam Constitutional: well developed, well nourished and + obese up in chair on RA Eyes: EOM intact bilaterally ENMT: Ears: no external ear abnormality Nose: no external nose abnormality Mouth: + dry oral mucous membranes Neck: no nuchal rigidity Respiratory: normal respiratory effort; no respiratory distress and no labored breathing Auscultation: + diminished lung sounds; no wheezes Cardiovascular: RRR, no murmur, no edema Gastrointestinal (Abdomen): Inspection/Auscultation: normal bowel sounds Percussion/Palpation: abdomen soft; abdomen nontender Musculoskeletal: Extremities: strength 5/5 throughout Skin: no rashes, warm and dry Psychiatric: Orientation: alert and oriented x 3 Eye Contact: + fair eye contact Speech: normal rate/rhythm/volume of speech Affect: euthymic affect Results & Data Vital Signs (Past 12 Hours) Vital Signs Temp Pulse Pulse Pulse Resp BP BP 05/26/19 03:42 36.9 C 88 22 05/26/19 00:00 88 05/25/19 23:31 36.7 C 90 18 137/80 05/25/19 21:25 153/83 H 05/25/19 20:49 97 H 168/95 H 05/25/19 20:26 36.7 C 97 H 21 168/95 H BP Pulse Ox 05/26/19 03:42 132/70 98 05/26/19 00:00 05/25/19 23:31 96 05/25/19 21:25 05/25/19 20:49 05/25/19 20:26 88 L Laboratory Results 05/25/19 05:24 05/25/19 05:24 (1) HTN (hypertension) Hypertension type: unspecified Qualified Code(s): I10 - Essential (primary) hypertension
[2019-05-26] MEDS: INSULIN ASPART 100 UNITS/ML 3 ML PEN SC SCH ×2 (07:42→11:49)
[2019-05-26] MEDS: ASPIRIN 81 MG ECTAB PO SCH (07:47)
[2019-05-26] MEDS: PRASugrel TAB 10 MG TAB PO SCH (07:48)
[2019-05-26] MEDS: TAMSULOSIN HCL 0.4 MG CAP PO SCH (07:48)
[2019-05-26] MEDS: HEPARIN SOD 5,000 UNIT/0.5 ML VIAL SQ SCH (07:49)
[2019-05-26] MEDS: lisinopriL 10 MG TAB PO SCH (07:50)
[2019-05-26] MEDS: ISOSORBIDE MONO EXTENDED REL 60 MG TABCR PO SCH (07:50)
[2019-05-26] MEDS: CHOLECALCIFEROL 1,000 UNITS TAB PO SCH (07:51)
[2019-05-26 08:39] LABS: BUN Creatinine Ratio 15.2 (10-20); Calcium 8.4 mg/dl (8.5-10.1); Creatinine Clr Calc Pharmacy 39.6 ml/min; Est GFR (African American) 30.7; Est GFR (Non-African American) 26.4
[2019-05-26] MEDS ORDERED: carvediloL 6.25 MG TAB PO SCH (09:00)
--- NOTE | 2019-05-26 09:58 | Cardiology Progress Note ---
Date of Service May 26, 2019 Assessment & Plan (1) Hypertensive emergency: BP readings improved. Discharge on the following medications: Carvedilol, 12.5 mg plus 6.25 mg tab for total of 18.75 mg two times per day. - Will titrate to 25 mg BID as tolerated as outpatient. This replaced metoprolol. Nifedipine xl 30 mg at bedtime. (new) Ramipril 5 mg daily (COMMUNITY HEALTH SPECIALIST dose). Imdur 90 mg daily flomax 0.4 mg daily. -consider adding torsemide 5 mg daily at follow up if renal function stable. (2) Ischemic cardiomyopathy: LVEF 45% with distal LAD scar (chronic dating back to 2008) s/p cath this admission, no culprit, distal branch vessel RCA disease, small vessel, medical Rx. Carvedilol added. Severe diastolic dysfunction noted, LVEDP, 30, setting of severe systemic hypertension at the time of procedure, grade 2 diastolic dysfunction noted with Doppler evidence of elevated filling pressure. Will improve with better blood pressure control, eventually plan to add diuretics. (3) CKD (chronic kidney disease) stage 3, GFR 30-59 ml/min: Disease, baseline creatinine 2.2, in the setting of diabetes, hypertension related to chronic kidney disease as well as a single kidney having had past nephrectomy in the setting of renal cell carcinoma. Creatinine had trended up to 2.58 today, potassium 5 today up from 4.2 yesterday. I discussed the renal function panel with Dr. Dahl of nephrology. -We will hold off on adding torsemide today, but will consider adding torsemide 5 mg daily if renal function improves, requested a basic metabolic panel to be performed next week on Wednesday. I placed the order in [facility]. Disposition: Stable for discharge if able to walk without chest pain/shortness and without oxygen requirement. Patient to establish care as an outpatient with nephrology and cardiology [facility]. I requested a follow-up visit with our office in 1 to 2 weeks. Subjective CC : follow up hypertension, shortness of breath, chest pain Subjective: Denies SOB or chest pain. BP improved. SBP in 130s on last 3 measurements. Telemetry reveals stable sinus rhythm in the range of 70 to 80 bpm, without significant tachycardia. Review of Systems Review of Systems: All systems reviewed & are unremarkable except as noted in HPI & below Physical Exam Physical Exam: Temp Pulse Resp BP Pulse Ox 36.6 C 83 16 138/76 96 05/26/19 07:44 05/26/19 07:44 05/26/19 07:44 05/26/19 07:44 05/26/19 07:44 Constitutional: WD/WN, vitals as above Respiratory: normal respiratory effort, lungs clear to auscultation Cardiovascular: RRR, no murmur, no edema Gastrointestinal (Abdomen): normal bowel sounds, soft, nontender, no hepatosplenomegaly Skin: no rashes, warm and dry Neurologic: PERRL, EOMI, accommodation nl, no face palsy, no dysarthria Psychiatric: A+Ox3, euthymic affect Results & Data Vital Signs (Past 12 Hours) Vital Signs Temp Pulse Pulse Pulse Resp BP BP 05/26/19 07:44 36.6 C 83 16 138/76 05/26/19 03:42 36.9 C 88 22 132/70 05/26/19 00:00 88 05/25/19 23:31 36.7 C 90 18 137/80 Pulse Ox 05/26/19 07:44 96 05/26/19 03:42 98 05/26/19 00:00 05/25/19 23:31 96 Laboratory Results Comprehensive Metabolic Panel 05/26/19 Range/Units 07:44 Sodium 139 (136-145) mmol/L Potassium 5.0 D (3.5-5.1) mmol/L Chloride 109 H (98-107) mmol/L Carbon Dioxide 28 (21-32) mmol/L BUN 39 H (7-18) mg/dl Creatinine 2.58 H (0.6-1.4) mg/dl Glucose 172 H (70-99) mg/dl Calcium 8.4 L (8.5-10.1) mg/dl Intake and Output 05/25/19 05/26/19 05/26/19 22:59 06:59 14:59 Intake Total 340 / 1275 400 / 1275 Balance 340 / 1275 400 / 1275 Intake: Oral 340 / 1275 400 / 1275 Other: Weight 112 kg
--- NOTE | 2019-05-26 13:58 | Pharmacy Report ---
Pharmacy Glycemic Short Note 2 - Date of Service May 26, 2019 - Glycemic Short BSG Results (Last 24 hours): 05/25/19 05/25/19 05/26/19 16:40 20:21 03:19 Glucose POC Glucose 81 115 H 58 L* 05/26/19 05/26/19 05/26/19 03:20 03:38 07:19 Glucose POC Glucose 56 L* 76 172 H 05/26/19 05/26/19 07:44 11:45 Glucose 172 H POC Glucose 214 H Outpatient Anti-diabetic Regimen: * Tresiba 72 units SC HS * Novolog units TIDM plus SSI * Linagliptin 5 mg po daily * A1c = 8.0% on 05/22/19 Risk Factors for Insulin Resistance: * Recent Surgery: POD 4 s/p cardiac cath * Diet: T2DM ASSESSMENT: 05/26 * Mr. Burgos received 40 units of insulin yesterday * 25 units of basal * 15 units of bolus * BSG ranged from 76 - 183 mg/dL * Insulin needs have been trending downward over the past three days; 63 units, 42 units, 40 units. * Despite a 14% decrease in Lantus dosing, Jonny experienced overnight hypoglycemia with BSG of 58 mg/dL. He was not given any Novolog at bedtime, therefore this is due to basal insulin. I will further decrease basal insulin today. * I loosened carbohydrate coverage this morning due to post prandial BSG below goal yesterday (81 mg/dL at dinner). BSG then increased to 214 mg/dL with lunch indicating inadequate carb coverage. I will utilize a tighter carb ratio with breakfast only to avoid larger doses of correctional insulin being given at lunchtime. 05/25 * BSGs have ranged 60-155 mg/dL over the last 24 hrs * Over the last 24 hours Mr. Burgos received 42 units SQ insulin. (29 units of basal, 13 units of bolus) * Fasting bsg was 76 mg/dL this morning. Will decrease tonight's basal dose to target a higher fasting bsg. This will also help to balance the basal/bolus ratio. * Today's breakfast bolus dose was given late which caused the lunch bsg to be above goal. * Post-prandial BSGs reasonably controlled with current CF / CR doses. Will continue the same and monitor post-prandial trend. PLAN FOR INPATIENT GLYCEMIC CONTROL: * Holding outpatient oral diabetes medications (Linagliptin) * Basal insulin - decrease * 20 units SQ HS * Bolus insulin * NovoLog per scale ACHS or Q6hrs while NPO with one overnight check * Goal Range: Low 110 mg/dL - High 140 mg/dL Breakfast * Correction Factor: 30 mg/dL/unit * Nutritional / Prandial insulin per carb ratio of 1 unit per 8 grams CHO consumed Lunch/Dinner/HS * Correction Factor: 30 mg/dL/unit * Nutritional / Prandial insulin per carb ratio of 1 unit per 10 grams CHO consumed PLAN FOR DISCHARGE: A1c = 8 % on 05/22/19 * Patient follows with an Clinical Researcher and reports that he recently was given a new insulin regimen and education on carb counting. He was scheduled to start his new regimen the Wednesday prior to admission. I would recommend initiation of new insulin regimen and follow up with Clinical Researcher.
--- NOTE | 2019-05-26 15:06 | Hospitalist Progress Note ---
Date of Service May 26, 2019 Assessment & Plan (1) Hypertensive emergency: BP improved Coreg started, titrated to 18.75mg po BID Nifedipine 30mg po daily started discharge medications: (per Dr. Little- Dump Worker)Carvedilol, 12.5 mg plus 6.25 mg tab for total of 18.75 mg two times per day. -Will titrate to 25 mg BID as tolerated as outpatient. This replaced metoprolol. Nifedipine xl 30 mg at bedtime. (new) Ramipril 5 mg daily (BUSINESS SYSTEMS ADMINISTRATOR dose). Imdur 90 mg daily flomax 0.4 mg daily. -consider adding torsemide 5 mg daily at follow up if renal function stable. (2) NSTEMI (non-ST elevated myocardial infarction): in the setting of HTN urgency Cardiac cath : LM -luminal irregularities LAD -20 to 30% ostial, diffuse 50% mid at takeoff of first septal extending past takeoff of second diagonal. 99% earlydistal and 99% stenosis as wraps around apex. Bifurcating first septal with high-grade ostial stenosis. Moderate caliber second diagonal with luminal irregularities and LAUREN-3 flow. Circumflex -moderate caliber vessel, 20 to 30% ostial. Very small OM 2 occluded with partial filling distally via left to left collaterals. Very small left PLB with 95% stenosis. RCA -dominant, patent proximal to mid stents, latemid luminal irregularities, 30 to 40% distal stenosis prior to takeoff of right PDA. LVEDP -30-elevated Summary: 1. Severe single vessel chronic coronary artery disease -50% diffuse mid LAD, sequential 99% distal LAD lesions 2. Elevated intracardiac filling pressure IV heparin discontinued, as there was no evidence of new cardiac thrombotic event Patient is continued with outpatient antiplatelets Cardiology recommends medical management, with judicial control of blood pressure --- resolved with improvement in blood pressure continue Aspirin, Effient (3) CKD (chronic kidney disease) stage 3, GFR 30-59 ml/min: History of renal cell carcinoma(clear cell) status post nephrectomy CKD stage III Recent creatinine 2.2 crea 2.18 to 2.5 repeat BMP on ff up with PCP on Wednesday Peoples[employer] Analyst Dr. Duran followed patient while admitted ff up with Dr. Duran in 2 weeks HISTORY OF MELANOMA IN BACK Status post wide margin resection No recent recurrence as per patient CODE STATUS: Full code DVT prophylaxis: Subcu heparin Disposition: d/c home today ff up with PCP as outlined in d/c summary ff up with Dump Worker and Dr. Duran in 1-2 weeks Subjective ff up for chest pain seen resting in bed, comfortable states he feels much better overall denies chest pain, dyspnea, dizziness ambulating with no problems states he is ready and would like to be discharged today Review of Systems Review of Systems: All systems reviewed & are unremarkable except as noted in HPI & below Physical Exam Physical Exam: General- oriented x 3, not in distress, speaks in sentences with no effort or accessory muscle use Eyes- anicteric Neck- no JVD Lungs- clear breath sounds bilaterally no crackles no wheezing Heart- normal rate, regular rhythm; no murmurs Abdomen- normal bowel sounds, nondistended, soft, nontender Extremities- no pretibial edema, no calf tenderness Neuro- alert, oriented x 3; no gross focal neurologic deficits Skin- warm & dry Results & Data Vital Signs (Past 12 Hours) Vital Signs Temp Pulse Pulse Resp BP BP Pulse Ox 05/26/19 14:01 96 05/26/19 11:52 36.6 C 81 21 121/76 97 05/26/19 08:00 79 05/26/19 07:44 36.6 C 83 16 138/76 96 05/26/19 03:42 36.9 C 88 22 132/70 98 Laboratory Results Laboratory Results - last 24 hr 05/25/19 05/25/19 05/26/19 16:40 20:21 03:19 Sodium Potassium Chloride Carbon Dioxide Anion Gap BUN Creatinine Est Cr Clr Drug Dosing Est GFR ( Amer) Est GFR (Non-Af Amer) BUN/Creatinine Ratio Glucose POC Glucose 81 115 H 58 L* Calcium 05/26/19 05/26/19 05/26/19 03:20 03:38 07:19 Sodium Potassium Chloride Carbon Dioxide Anion Gap BUN Creatinine Est Cr Clr Drug Dosing Est GFR ( Amer) Est GFR (Non-Af Amer) BUN/Creatinine Ratio Glucose POC Glucose 56 L* 76 172 H Calcium 05/26/19 05/26/19 07:44 11:45 Sodium 139 Potassium 5.0 D Chloride 109 H Carbon Dioxide 28 Anion Gap 2.0 L BUN 39 H Creatinine 2.58 H Est Cr Clr Drug Dosing 39.6 Est GFR ( Amer) 30.7 Est GFR (Non-Af Amer) 26.4 BUN/Creatinine Ratio 15.2 Glucose 172 H POC Glucose 214 H Calcium 8.4 L
--- NOTE | 2019-05-26 15:37 | Discharge Summary ---
Date of Service May 26, 2019 Admission HPI Per Admitting Provider CHIEF COMPLAINT: Chest pain, shortness of breath. HISTORY OF PRESENT ILLNESS: This is a 59-year-old male with past medical history significant for diabetes, CAD status post stents, hyperlipidemia, obstructive sleep apnea, BPH, history of melanoma, history of renal cell carcinoma status post left nephrectomy, history of peripheral neuropathy, presents with chest pain, shortness of breath. Since yesterday, he had some mid chest pain, pressure-like feeling, moderate in severity, no radiation, also some sweating and he is also getting shortness of breath on exertion. The chest pain is also more exertional and reduce at rest and today even climbing one flight of stairs or walking short distance was making him short of breath and lately he is getting more weak and tired, so he took nitro at home and this caused some headache and he came to the ER. Currently, when he came in, his blood pressure was high. He received IV Lopressor and also aspirin and his troponin is 0.16. His troponins in the previous admissions were negative. EKG is unremarkable. Currently, pain is resolved, The patient says he has sleep apnea but does not use CPAP. He had a sleep study done and was told he may need CPAP and went for second sleep study and it did not go well and he did not it again. Didnot had nocturnal pulse ox study in the past. Currently, denies any dizziness, no blurred visions, no earache, no runny nose, no sore throat, no cough, no nausea, no vomiting, no abdominal pain. Normal bowel and bladder movements. No hematuria or burning micturition, no melena or hematochezia. No swelling in the legs, no rash. Admission Exam Per Admitting Provider PHYSICAL EXAMINATION: GENERAL: The patient is obese, not in acute distress. VITAL SIGNS: Temperature 36.8, pulse 86, respiratory rate 18, blood pressure 178/89, and oxygen 96% on room air. HEENT: No pallor, no icterus. Pupils equal, round, reactive to light. NECK: No JVD, no neck masses, no carotid bruits. CARDIOVASCULAR: S1, S2 heard, regular rate and rhythm, no murmur, no gallop. RESPIRATORY SYSTEM: Normal AP diameter. No thyromegaly. No wheezing, no crackles. ABDOMEN: Soft, bowel sounds present, nontender. No distention. CENTRAL NERVOUS SYSTEM: Cranial nerves II-XII grossly intact. Nonfocal. EXTREMITIES: No edema, no erythema. Principal Diagnosis Chest pain secondary to hypertensive urgency, ischemic cardiomyopathy, CHF diastolic type Discharge Exam General- oriented x 3, not in distress, speaks in sentences with no effort or accessory muscle use Eyes- anicteric Neck- no JVD Lungs- clear breath sounds bilaterally no crackles no wheezing Heart- normal rate, regular rhythm; no murmurs Abdomen- normal bowel sounds, nondistended, soft, nontender Extremities- no pretibial edema, no calf tenderness Neuro- alert, oriented x 3; no gross focal neurologic deficits Skin- warm & dry Discharge Data Allergies Allergy/AdvReac Type Severity Reaction Status Date / Time cucumber Allergy Severe reports Verified 05/27/19 09:06 rash/hives NSAIDS (Non-Steroidal AdvReac Severe to avoid Verified 05/27/19 09:06 Anti-Inflamma due to poor renal fxn oseltamivir [From Tamiflu] AdvReac Unknown Confusion Verified 05/27/19 09:06 Consultations 05/22/19 02:39 Consult Case Management - Discharge Planning Routine 05/22/19 08:00 Consult Cardiology Routine 05/22/19 08:41 Consult Nephrology Routine 05/22/19 09:18 Consult Linen Folder Routine Procedures Performed Operation Date: 05/22/19 08:30 Actual Procedures p Cath, Left with Cors and Vent - Darren Eckert MD s Cineradiography w/Routine Exam - Darern Eckert MD Ordered Studies 05/22/19 08:04 CL Cath Imgs for PACS use only Stat 05/23/19 15:08 US venous doppler LE Routine Hospital Course (1) Hypertensive emergency: BP improved Coreg started, titrated to 18.75mg po BID Nifedipine 30mg po daily started discharge medications: (per Dr. Mcnair- Roofer Metal)Carvedilol, 12.5 mg plus 6.25 mg tab for total of 18.75 mg two times per day. -Will titrate to 25 mg BID as tolerated as outpatient. This replaced metoprolol. Nifedipine xl 30 mg at bedtime. (new) Ramipril 5 mg daily (CUSTOMER SUPPORT AGENT dose). Imdur 90 mg daily flomax 0.4 mg daily. -consider adding torsemide 5 mg daily at follow up if renal function stable. (2) NSTEMI (non-ST elevated myocardial infarction): in the setting of HTN urgency Cardiac cath : LM -luminal irregularities LAD -20 to 30% ostial, diffuse 50% mid at takeoff of first septal extending past takeoff of second diagonal. 99% earlydistal and 99% stenosis as wraps around apex. Bifurcating first septal with high-grade ostial stenosis. Moderate caliber second diagonal with luminal irregularities and LAUREN-3 flow. Circumflex -moderate caliber vessel, 20 to 30% ostial. Very small OM 2 occluded with partial filling distally via left to left collaterals. Very small left PLB with 95% stenosis. RCA -dominant, patent proximal to mid stents, latemid luminal irregularities, 30 to 40% distal stenosis prior to takeoff of right PDA. LVEDP -30-elevated Summary: 1. Severe single vessel chronic coronary artery disease -50% diffuse mid LAD, sequential 99% distal LAD lesions 2. Elevated intracardiac filling pressure IV heparin discontinued, as there was no evidence of new cardiac thrombotic event Patient is continued with outpatient antiplatelets Cardiology recommends medical management, with judicial control of blood pressure --- resolved with improvement in blood pressure continue Aspirin, Effient (3) CKD (chronic kidney disease) stage 3, GFR 30-59 ml/min: History of renal cell carcinoma(clear cell) status post nephrectomy CKD stage III Recent creatinine 2.2 crea 2.18 to 2.5 repeat BMP on ff up with PCP on Wednesday Mechanic/Welder Dr. Cline followed patient while admitted ff up with Dr. Cline in 2 weeks HISTORY OF MELANOMA IN BACK Status post wide margin resection No recent recurrence as per patient CODE STATUS: Full code DVT prophylaxis: Subcu heparin Disposition: d/c home today ff up with PCP as outlined in d/c summary ff up with Roofer Metal and Dr. Cline in 1-2 weeks Total Time Total Time Spent Total Time Spent (In Minutes): 40 mins Discharge Plan Discharge Items Patient Disposition: Home - Self-Care Reason For Visit: NSTEMI Discharge Diagnosis: CHEST PAIN, LIKELY SECONDARY TO UNCONTROLLED HYPERTENSION Activity: As commented below Activity Comment: NO HEAVY EXERTION UNTIL RE-EVALUATED BY PRIMARY CARE PHYSICIAN Lifting: Wait until after follow-up appointment Exercise/Sports: Wait until after follow-up appointment Driving/Machine Use: NO DRIVING UNTIL RE-EVALUATED BY PRIMARY CARE PHYSICIAN Non-emergency contact: Primary Care Provider and [employer]ofer [employer] Call non-emergency contact if: you have any medication questions, your symptoms worsen, your pain is not controlled, your pain is worsening, your pain is unusual for you and your pain is concerning for you Follow-up/Referrals: Dalila Cline MD, PhD [Physician] - Jonny Mcnair DO [[employer]] - Reuben Mistry MD [Primary Care Provider] - Diet: Heart Healthy Addtl Attending Provider Instructions: PLEASE FOLLOW UP WITH PRIMARY CARE PHYSICIAN DR. TEGAN FRANK (ASSOCIATE OF DR. MISTRY) ON MAY 30, 2019Wednesday AT 3:45PM. FOLLOW UP WITH MEDICAL OFFICE ADMINISTRATOR DR. MCNAIR AND HAMMERER DR. CLINE IN 2 WEEKS. PLEASE CALL THEIR OFFICE, CONTACT NUMBER OUTLINED ABOVE, TO SCHEDULE AN APPOINTMENT. PLEASE REVIEW YOUR NEW MEDICATION LIST AND FOLLOW INSTRUCTIONS CAREFULLY. CALL PRIMARY CARE PHYSICIAN OR RETURN TO THE ER IMMEDIATELY IF WITH RECURRENCE /WORSENING OF SYMPTOMS. Pending Studies at Discharge: Yes Studies:: PHYSICAL THERAPY- EVALUATE AND TREAT PLEASE GO FOR BLOODWORK AT [facility] ON WEDNESDAY MAY 29, 2019. Stand-Alone Forms: My basno, Smoking Cessation Medications and DC Order Prescriptions: New carvedilol 6.25 mg Tablet 18.75 mg PO BID 30 Days Qty: 180 RF: 2 nifedipine [Adalat CC] 30 mg Tablet Extended Release 30 mg PO HS 30 Days Qty: 30 RF: 2 Continued aspirin 81 mg Tablet,Delayed Release (Dr/Ec) 162 mg PO DAILY RF: 0 cholecalciferol (vitamin D3) [Vitamin D3] 1,000 unit Capsule 3,000 unit PO DAILY RF: 0 cyanocobalamin (vitamin B-12) [Vitamin B-12] 1,000 mcg Tablet 1,000 mcg PO DAILY RF: 0 tamsulosin 0.4 mg capsule 0.4 mg PO DAILY RF: 0 simvastatin 20 mg tablet 20 mg PO HS RF: 0 ramipril 5 mg capsule 5 mg PO DAILY RF: 0 duloxetine 60 mg capsule,delayed release(DR/EC) 60 mg PO DAILY RF: 0 isosorbide mononitrate 60 mg tablet extended release 24 hr 90 mg PO DAILY RF: 0 prasugrel [Effient] 10 mg Tablet 10 mg PO DAILY RF: 0 niacin 500 mg tablet extended release 24 hr 500 mg PO DAILY RF: 0 meclizine 12.5 mg Tablet 12.5 mg PO Q8 PRN (Reason: Dizziness) RF: 0 acetaminophen-codeine 300-30 mg tablet 1 tab PO UD PRN (Reason: Pain) RF: 0 alprazolam [Xanax] 0.25 mg Tablet 0.25 mg PO Q8 PRN (Reason: Anxiety) RF: 0 colchicine [Colcrys] 0.6 mg Tablet 0.6 mg PO DAILY PRN (Reason: as directed) RF: 0 Novolog Flexpen U-100 Insulin 100 unit/mL (3 mL) Insulin Pen SUBCUT TIDM RF: 0 Tradjenta 5 mg Tablet 5 mg PO DAILY RF: 0 Vascepa 1 gram Capsule 1 g PO BID RF: 0 Tresiba FlexTouch U-200 200 unit/mL (3 mL) Insulin Pen 72 unit SUBCUT HS RF: 0 Discontinued metoprolol tartrate 25 mg tablet 12.5 mg PO BID RF: 0 Discharge Orders: Discharge Order (Routine); Ordered 05/26/19 Ordered By: Kamari Cowan Admission Data Admit Date/Time: 05/22/19 01:23 Attending Provider: Kamari Cowan Admit Provider: Wisam Koo Primary Care Provider: Reuben Mistry Other Providers: Zach Mott ; Jonny Mcnair ; Bairon Parnell ; Varun Manriquez i ; Frank Hankins ; Robert Tobias ; Sonia Gross ; Maki Moser ; Dalila Cline ; Jeet Chapman ; Magaly Sharp ; Evelyne Freire ; Fam Cid ; Genaro Hernandez ; Marcie Gomez. Other Interventions: Discharge Summary Assessment (RN) Last Done: 05/26/19 16:43 DC Date/Time DO NOT enter until pt leaves facility: 05/26/19 16:45
[2019-05-26] MEDS ORDERED: INSULIN ASPART 100 UNITS/ML 3 ML PEN SC SCH (16:30)
[2019-05-26] MEDS ORDERED: INSULIN GLARGINE 100 UNIT/ML VIAL SC SCH (21:00)
[2019-05-26] MEDS ORDERED: NIFEdipine EXTENDED REL 30 MG TABCR PO SCH (21:00)
[2019-05-27] MEDS ORDERED: INSULIN ASPART 100 UNITS/ML 3 ML PEN SC SCH (07:30)
--- NOTE | 2019-05-29 13:17 | Coding Query ---
CONGESTIVE HEART FAILURE To Promote full compliance with coding requirements relating to patient care, physician participation is requested in all cases of painter supervisor uncertainty. Please assist us with the following questions. A diagnosis of DIASTOLIC Congestive Heart Failure is documented in the patient's medical record on the Discharge Summary. To accurately code this diagnosis and to compare patient severity, we ask that you specify the type of heart failure by placing an X within the parenthesis (x). DIASTOLIC HEART FAILURE ( ) Acute (X ) Chronic ( ) Acute on Chronic ( ) Rheumatic ( ) Unknown Was the CHF Present On Admission? Please check the appropriate box: ( ) Present on Admission (x ) Not Present On Admission ( ) Clinically undetermined Thank you Karen PIERRE
--- NOTE | 2019-05-29 13:19 | Coding Query ---
To promote full compliance with coding requirements relating to patient care, provider participation is requested in all cases of egg grader uncertainty. Please assist us with the question(s) below: Coding Question(s): The diagnosis below was documented in the H&P through Discharge Summary but documentation is not clear if this was ruled-out or still possible. Please indicate if it is still a possible diagnosis or ruled out. Physician's Response(s): NSTEMI ( x ) Diagnosed and POA ( ) Diagnosed and not POA ( ) Ruled out ( ) Other (please specify) MTDD
== END 2019-05-26 16:45 | disposition home or self-care (01) | DRG 281 ==
LOC: ED 23:06 → 2S 05-22 01:23 → SUATTDRO 05-22 01:23 → 2S 05-22 01:35 → 1E 05-22 08:40 → 2E 05-23 18:42

== ENCOUNTER 2019-05-27 08:07 | Inpatient (IN) ==
[2019-05-27 08:52] LABS: Basophils # (auto) 0.01 K/uL (0-0.2); Basophils % (auto) 0.1 %; Eosinophils # (auto) 0.25 K/uL (0-0.5); Eosinophils % (auto) 2.1 %; Hematocrit (blood only) 35.2 % (42-52); Hemoglobin 11.3 g/dL (14.0-18.0); Immature Granulocytes # (auto) 0.08 K/uL (0.00-0.02); Immature Granulocytes % (auto) 0.7 %; Lymphocytes # (auto) 1.63 K/uL (1.2-3.4); Lymphocytes % (auto) 13.5 %; Mean Corpuscular Hemoglobin 29.4 pg (25-34); Mean Corpuscular Hgb Conc 32.1 g/dL (32-36); Mean Corpuscular Volume 91.7 fL (80-100); Mean Platelet Volume 9.8 fL (7.4-10.4); Monocytes % (auto) 6.6 %; Neutrophils # (auto) 9.31 K/uL (1.4-6.5); Platelet Count 250 K/uL (130-400); RDW Coefficient of Variation 13.4 % (11.5-14.5); RDW Standard Deviation 44.5 fL (36.4-46.3); Red Blood Count 3.84 M/uL (4.7-6.1); White Blood Count 12.08 K/uL (4.8-10.8)
[2019-05-27 08:56] LABS: Prothrombin Time 10.3 Seconds (9.0-12.0)
[2019-05-27 08:57] LABS: Alanine Aminotransferase 45 U/L (12-78); Albumin Level 3.3 gm/dl (3.4-5.0); Aspartate Aminotransferase 42 U/L (15-37); BUN Creatinine Ratio 17.6 (10-20); Blood Urea Nitrogen 48 mg/dl (7-18); Calcium 8.3 mg/dl (8.5-10.1); Carbon Dioxide 24 mmol/L (21-32); Chloride 109 mmol/L (98-107); Est GFR (African American) 28.8; Est GFR (Non-African American) 24.8; Glucose 159 mg/dl (70-99); Lipase 503 U/L (73-393); Potassium 4.5 mmol/L (3.5-5.1); Sodium 139 mmol/L (136-145)
[2019-05-27 09:01] LABS: Albumin Globulin Ratio 0.8 (0.9-2); Alkaline Phosphatase 197 U/L (45-117); Bilirubin,Total 0.3 mg/dl (0.2-1); NT Pro B Type Natriuretic Pept 426 pg/ml (0-900); Total Protein 7.3 gm/dl (6.4-8.2); Troponin I < 0.015 ng/ml (0-0.045)
--- NOTE | 2019-05-27 09:06 | XRay Report ---
XR chest 1V portable CLINICAL HISTORY: Chest Pain COMPARISON STUDY: Chest radiograph May 24, 2019. FINDINGS: Lung volumes are at the lower limits of normal. There is no pneumothorax or pleural effusio n. Moderate cardiomegaly is noted without evidence for pulmonary edema. Several right-sided rib fract ures are again noted, as shown on right rib series of May 22, 2019. There are suspected bibasilar retrocardiac opacities. IMPRESSION: 1. Suspected bibasilar retrocardiac opacities which may reflect pneumonia or atelectasis. 2. Redemonstration of several right-sided rib fractures as shown on right rib series May 22, 2019 . No pneumothorax. Electronically signed by: Juan Jose Titus M.D. 05/27/2019 9:05 AM
[2019-05-27] MEDS ORDERED: CEFEPIME 2,000 MG in SYRINGE 7.5 ML IV STA (10:05)
[2019-05-27] MEDS ORDERED: CEFEPIME 2,000 MG/20 ML VIAL ONE (10:55)
--- NOTE | 2019-05-27 11:23 | CT Scan Report ---
CT OF THE CHEST WITHOUT IV CONTRAST CLINICAL HISTORY: Chest pain. Evaluate for pneumonia. COMPARISON STUDY: Chest radiograph and right rib series May 22, 2019. CT DOSE: 936.16 mGy.cm TECHNIQUE: Axial images of the chest were obtained without IV contrast. Images were reviewed in the axial, sagittal, and coronal planes. IV contrast was not administered for this examination. Automat ed exposure control was utilized for the study. A dose lowering technique was utilized adhering to t he principles of ALARA. FINDINGS: No mediastinal hematoma is present. The heart is mildly enlarged. A prominent subcarinal l ymph node is at the upper limits of normal for size. There is bilateral gynecomastia. No pneumothorax is present. There are small bilateral pleural effusions with bibasilar opacities consistent with ate lectasis. Interlobular septal thickening indicates pulmonary edema. There is a 1 cm ground glass opac ity with central nodular density within the left lower lobe on image 165 of 301. Right-sided rib frac tures are again noted as shown in rib series May 22, 2019. These fractures are essentially nondis placed. There are fractures of the right fifth through eighth ribs. Upper abdomen is unremarkable. IMPRESSION: 1. Small bilateral pleural effusions with bibasilar opacities consistent with atelectasis. No CT evid ence for pneumonia. 2. Mild pulmonary edema. 3. Acute essentially nondisplaced right fifth through eighth rib fractures. No pneumothorax. Electronically signed by: Juan Jose Titus M.D. 05/27/2019 11:20 AM
[2019-05-27] MEDS ORDERED: COLCHICINE 0.6 MG TAB PO PRN (14:05)
[2019-05-27] MEDS ORDERED: ALPRAZolam 0.25 MG TABLET PO PRN (14:05)
[2019-05-27] MEDS ORDERED: MECLIZINE 12.5 MG TAB PO PRN (14:05)
[2019-05-27] MEDS ORDERED: ACETAMINOPHEN W/CODEINE #3 1 TAB PO PRN (14:28)
[2019-05-27] MEDS ORDERED: PHARMACY GLYCEMIC MGMT CONSULT PRN (14:36)
[2019-05-27] MEDS ORDERED: FUROSEMIDE 40 MG in SYRINGE 0 ML IV ONE (14:45)
--- NOTE | 2019-05-27 14:52 | Cardiology Consultation ---
Date of Consultation May 27, 2019 Assessment & Plan (1) SOB (shortness of breath): (2) CHF (congestive heart failure): (3) Ischemic cardiomyopathy: (4) CKD (chronic kidney disease) stage 3, GFR 30-59 ml/min: (5) Solitary kidney, acquired: (6) CKD (chronic kidney disease) stage 3, GFR 30-59 ml/min: Believe the patient is in congestive heart failure most likely from his ischemic cardiomyopathy and chronic kidney disease. Nephrology has been consulted. Patient will receive IV diuretics and hopefully that will improve his symptoms. We will follow along with you during his hospital stay. History of Present Illness Attending Physician: Kamari Cowan MD History of Present Illness This is a 59-year-old male patient who was just discharged yesterday. He has a history of an ischemic cardiomyopathy with an estimated left ventricular ejection fraction around 40 to 45%. He also has chronic stage III kidney disease and a solitary kidney following surgery for renal cell carcinoma. He is a type II diabetic. He was admitted approximately a week ago with shortness of breath and a non-STEMI. During his hospital admission he developed respiratory distress and was taken to the cardiac catheterization under heart alert protocol. That revealed his coronary anatomy to be unchanged with a chronically occluded LAD with rich left to left and right to left collaterals. Patient also has severe disease of the right PDA. Patient has been deemed to medical therapy regarding his coronary artery disease. He was subsequently discharged and felt very short of breath last night especially when he went to bed. He was brought back to the emergency department where he has been readmitted most likely with volume overload, congestive heart failure and mild worsening of his chronic kidney disease. Allergies Allergy/AdvReac Type Severity Reaction Status Date / Time cucumber Allergy Severe reports Verified 05/27/19 09:06 rash/hives NSAIDS (Non-Steroidal AdvReac Severe to avoid Verified 05/27/19 09:06 Anti-Inflamma due to poor renal fxn oseltamivir [From Tamiflu] AdvReac Unknown Confusion Verified 05/27/19 09:06 Home Medications Home Medications Medication Instructions Recorded Confirmed Type Novolog Flexpen U-100 Insulin 0 unit SUBCUT TIDM 05/22/19 05/27/19 History Tradjenta 5 mg PO DAILY 05/22/19 05/27/19 History Tresiba FlexTouch U-200 72 unit SUBCUT HS 05/22/19 05/27/19 History Vascepa 1 g PO BID 05/22/19 05/27/19 History acetaminophen-codeine 1 tab PO UD PRN 05/22/19 05/27/19 History alprazolam [Xanax] 0.25 mg PO Q8 PRN 05/22/19 05/27/19 History aspirin 162 mg PO DAILY 05/22/19 05/27/19 History cholecalciferol (vitamin D3) 3,000 unit PO DAILY 05/22/19 05/27/19 History [Vitamin D3] colchicine [Colcrys] 0.6 mg PO DAILY PRN 05/22/19 05/27/19 History cyanocobalamin (vitamin B-12) 1,000 mcg PO DAILY 05/22/19 05/27/19 History [Vitamin B-12] duloxetine 60 mg PO DAILY 05/22/19 05/27/19 History isosorbide mononitrate 90 mg PO DAILY 05/22/19 05/27/19 History meclizine 12.5 mg PO Q8 PRN 05/22/19 05/27/19 History niacin 500 mg PO DAILY 05/22/19 05/27/19 History prasugrel [Effient] 10 mg PO DAILY 05/22/19 05/27/19 History ramipril 5 mg PO DAILY 05/22/19 05/27/19 History simvastatin 20 mg PO HS 05/22/19 05/27/19 History tamsulosin 0.4 mg PO DAILY 05/22/19 05/27/19 History carvedilol 18.75 mg PO BID 30 Days #180 tab 05/26/19 05/27/19 Rx nifedipine [Adalat CC] 30 mg PO HS 30 Days #30 tab 05/26/19 05/27/19 Rx Patient History Medical History CKD (chronic kidney disease) stage 3, GFR 30-59 ml/min Heart attack Melanoma s/p 06/2018 excision Surgical History H/O left radical nephrectomy 2011 for renal cell carcinoma History of intravascular stent placement 2008, 2009 Family History Father Coronary heart disease Brother Diabetes Social History Preferred Language: Vincentian Communication Ability: Effective 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 Pan 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: No Beliefs That Will Affect Care: None Current Living Situation: Alone Other Information That Helps Us Care for You: No Feels Safe at Home: Yes Safety Concerns: Feels Safe At This Time Smoking Status: Never smoker Hx Alcohol Use: Yes Hx Substance Use: No Review of Systems Review of Systems: All systems reviewed & are unremarkable except as noted in HPI & below Nothing additional Physical Exam Physical Exam: General: no acute distress and stated age Head: normocephalic, no masses, lesions, tenderness or abnormalities Eyes: conjunctiva are pink and non-injected, sclera clear Neck: supple, no adenopathy, no bruits, normal jugular venous pulse, no hepatojugular reflux Chest: normal shape and normal respiratory effort Lungs: Scattered rales Cardiac Exam: - regular rate & rhythm, no murmurs gallops or rubs - normal S1, normal S2, and S4 is present Pulses: 2(+) throughout Abdomen: abdomen soft, non-tender, no abnormal masses and no hepatosplenomegaly Musculoskeletal: no gait disturbance, no joint inflammation, no deforming arthritis Extremities: no edema and no cyanosis Neuro: grossly normal exam Results & Data Vital Signs (Past 12 Hours) Vital Signs Temp Pulse Pulse Resp BP BP BP 05/27/19 14:19 153/83 H 05/27/19 14:09 36.5 C 86 22 163/83 H 05/27/19 13:45 86 18 163/78 H 05/27/19 12:00 79 18 140/81 05/27/19 10:28 77 18 133/75 05/27/19 08:50 79 20 121/70 05/27/19 08:28 82 14 05/27/19 08:24 36.4 C L 86 21 142/72 H Pulse Ox 05/27/19 14:19 94 05/27/19 14:09 92 05/27/19 13:45 94 05/27/19 12:00 95 05/27/19 10:28 93 05/27/19 08:50 95 05/27/19 08:28 95 05/27/19 08:24 96 Laboratory Results Laboratory Results - last 24 hr 1005/27/19 05/27/19 08:28 08:28 08:28 WBC 12.08 H RBC 3.84 L Hgb 11.3 L Hct 35.2 L MCV 91.7 MCH 29.4 MCHC 32.1 RDW Std Deviation 44.5 RDW Coeff of Terell 13.4 Plt Count 250 MPV 9.8 Immature Gran % (Auto) 0.7 Neut % (Auto) 77.0 Lymph % (Auto) 13.5 [place] % (Auto) 6.6 Eos % (Auto) 2.1 Baso % (Auto) 0.1 Immature Gran # (Auto) 0.08 H Neut # (Auto) 9.31 H Lymph # (Auto) 1.63 [place] # (Auto) 0.80 H Eos # (Auto) 0.25 Baso # (Auto) 0.01 PT 10.3 INR 1.0 APTT 27.0 PTT Ratio 1.0 Sodium 139 Potassium 4.5 Chloride 109 H Carbon Dioxide 24 Anion Gap 6.0 BUN 48 H Creatinine 2.72 H Est Cr Clr Drug Dosing Not Reportable Est GFR ( Amer) 28.8 Est GFR (Non-Af Amer) 24.8 BUN/Creatinine Ratio 17.6 Glucose 159 H POC Glucose Lactate Calcium 8.3 L Total Bilirubin 0.3 AST 42 H ALT 45 Alkaline Phosphatase 197 H Troponin I < 0.015 NT-Pro-B Natriuret Pep 426 Total Protein 7.3 Albumin 3.3 L Globulin 4.0 Albumin/Globulin Ratio 0.8 L Lipase 503 H Procalcitonin 05/27/19 05/27/19 05/27/19 10:12 10:12 14:05 WBC RBC Hgb Hct MCV MCH MCHC RDW Std Deviation RDW Coeff of Terell Plt Count MPV Immature Gran % (Auto) Neut % (Auto) Lymph % (Auto) [place] % (Auto) Eos % (Auto) Baso % (Auto) Immature Gran # (Auto) Neut # (Auto) Lymph # (Auto) [place] # (Auto) Eos # (Auto) Baso # (Auto) PT INR APTT PTT Ratio Sodium Potassium Chloride Carbon Dioxide Anion Gap BUN Creatinine Est Cr Clr Drug Dosing Est GFR ( Amer) Est GFR (Non-Af Amer) BUN/Creatinine Ratio Glucose POC Glucose 160 H Lactate 0.6 Calcium Total Bilirubin AST ALT Alkaline Phosphatase Troponin I NT-Pro-B Natriuret Pep Total Protein Albumin Globulin Albumin/Globulin Ratio Lipase Procalcitonin 0.21 Medications Administered Current Inpatient Medications Acetaminophen/Codeine Phosphate (Tylenol W/Codeine #3) 1 tab PO Q6H PRN PRN Reason: Pain Stop: 06/26/19 14:27 Alprazolam (Xanax) 0.25 mg PO Q8 PRN PRN Reason: Anxiety Stop: 06/26/19 14:04 Aspirin (Ecotrin Ectab) 162 mg PO DAILY ANNE Stop: 06/27/19 08:59 Carvedilol (Coreg) 18.75 mg PO BID ANNE Stop: 06/26/19 20:59 Cyanocobalamin (Vitamin B-12) 1,000 mcg PO DAILY ANNE Stop: 06/27/19 08:59 Dextrose (Dextrose 50%) 25 - 50 ml IV UD PRN; Protocol PRN Reason: Hypoglycemia Protocol Stop: 06/26/19 14:59 Duloxetine HCl (Cymbalta) 60 mg PO DAILY ANNE Stop: 06/27/19 08:59 Glucagon (Glucagen) 1 mg SQ UD PRN; Protocol PRN Reason: Hypoglycemia Protocol Stop: 06/26/19 14:59 Glucose (Glucose 40%) 15 - 30 gm PO UD PRN; Protocol PRN Reason: Hypoglycemia Protocol Stop: 06/26/19 14:59 Glucose (Dex4 Glucose) 4 - 8 tabs PO UD PRN; Protocol PRN Reason: Hypoglycemia Protocol Stop: 06/26/19 14:59 Insulin Aspart (Novolog Flexpen) 0 units SC ACHS [facility]; Protocol Stop: 06/26/19 16:29 Insulin Glargine (Lantus Solostar Pen) 0 units SC HS [facility]; Protocol Stop: 06/26/19 20:59 Isosorbide Mononitrate (Imdur Extended Rel) 90 mg PO DAILY [facility] Stop: 06/27/19 08:59 Meclizine HCl (Antivert) 12.5 mg PO Q8 PRN PRN Reason: Dizziness Stop: 06/26/19 14:04 Miscellaneous (Order Awaiting Action) 1 ea N/A QS [facility] Stop: 06/26/19 15:59 Miscellaneous (Carbohydrates For Hypoglycemia) 15 - 30 gm PO UD PRN PRN Reason: Hypoglycemia Treatment Stop: 06/26/19 14:59 Miscellaneous Information (Consult Glycemic Management Pharmacy) 1 ea N/A UD PRN PRN Reason: Consult Stop: 06/26/19 14:35 Niacin (Niaspan Extended Rel) 500 mg PO DAILY ANNE Stop: 06/27/19 08:59 Nifedipine (Procardia Xl) 30 mg PO HS ANNE Stop: 06/26/19 20:59 Prasugrel (Effient) 10 mg PO DAILY ANNE Stop: 06/27/19 08:59 Simvastatin (Zocor) 20 mg PO HS ANNE Stop: 06/26/19 20:59 Tamsulosin HCl (Flomax) 0.4 mg PO DAILY ANNE Stop: 06/27/19 08:59 Vitamin D (Vitamin D3) 3,000 units PO DAILY ANNE Stop: 06/27/19 08:59 (1) CHF (congestive heart failure) Heart failure chronicity: acute Heart failure type: unspecified Qualified Code(s): I50.9 - Heart failure, unspecified
--- NOTE | 2019-05-27 14:57 | Pharmacy Report ---
Glycemic Control Consultation - Date of Service May 27, 2019 - Scope Scope: Glycemic Pharmacist consulted by Dr Cowan on 05/27 for glycemic control and to write orders per [facility] inpatient glycemic control protocol - Objective Weight: 113.7 kg Accuchecks BSG (last 24hrs): 05/27/19 05/27/19 08:28 14:05 Glucose 159 H POC Glucose 160 H Laboratory Data (last 24hrs): 05/27/19 08:28 Potassium 4.5 Carbon Dioxide 24 Anion Gap 6.0 Creatinine 2.72 H Est Cr Clr Drug Dosing Not Reportable - Recent Pertinent Medications Outpatient Anti-diabetic Regimen: * Tresiba 72 units qHS * Novolog with meals () + SS * Tradjenta 5 mg daily * A1c = 8 % 05/22/19 Risk Factors for Insulin Resistance: * Diet: T2DM - Assessment & Plan Assessment & Plan: ASSESSMENT: * 59 y/o male re-admitted for wheezing after discharge yesterday for NSTEMI. P leydi has a history of T2DM, managed with basal + bolus insulin as an outpatient plus DPP-4 oral agent. Will hold oral agent for admission and utilize basal + bolus insulin in the form of Lantus + Novolog. Will use dosing similar to previous admission, which was TDD ~ 50 units. PLAN FOR INPATIENT GLYCEMIC CONTROL: * Holding outpatient oral diabetes medications * Basal insulin * Lantus qHS per the following scale: * 25 units for BSG 180 or less * 30 units for BSG > 180 * Bolus insulin * NovoLog per scale ACHS or Q6hrs while NPO * Goal Range: Low 110 mg/dL - High 140 mg/dL * Correction Factor: 30 mg/dL/unit * Nutritional / Prandial insulin per carb ratio of 1 unit per 10 grams CHO consumed Discharge Recommendations: * A1c = 8% on 05/22/19 * From discharge on 05/26: Patient follows with an Developing Machine Operator and reports that he recently was given a new insulin regimen and education on carb counting. He was scheduled to start his new regimen the Wednesday prior to admission. I would recommend initiation of new insulin regimen and follow up with Developing Machine Operator. Thank you.
--- NOTE | 2019-05-27 14:58 | Emergency Department Note ---
Entered by Robinson Suazo acting as a scribe for Eliseo Granados MD History of Present Illness General Chief complaint: Cardiac Assessment Stated complaint: SOB,DISCHARGED YESTERDAY WITH HEART PROBLEMS Time Seen by Provider: 05/27/19 08:25 Source: patient and family (girlfriend) History of Present Illness Onset (ago): day(s) 1 Location: mouth (shortness of breath) Pain Consistency: + other (worsening) Maximum Pain Intensity: 0 Relieved By: + none Associated symptoms: + cough and + other (wheezing and leg swelling) The patient is a 59 year old M who presents to the Emergency Room with complaints of worsening shortness of breath that occurred 1 day ago. The HPI was primarily provided by the patients girlfriend. She notes that the patient previously came into the ED with complaints of shortness of breath and chest pain. She states that the patients chest pain was relieved with nitroglycerin. She notes that the patient was placed on CPAP, in the ED. She adds that the patient had a VQ scan due to his shortness of breath. She notes that the patient was taken to the cardiac catheterization lab but adds that the patients catheterization results were similar to his previous catheterization. She states that the patient was admitted to the hospital for a hypertensive emergency as his blood pressure was 220/130. She adds that the patient was discharged yesterday. She states that she was binge watching Netflix with the patient, late last night. She adds that the patient went to sleep late but was complaining that he could not get comfortable. She notes that the patient was short of breath and wheezing so he decided to go to sleep in his recliner. She states that the patient is currently experiencing shortness of breath, wheezing, leg swelling, and coughing. The patient denies that his coughing is productive. The patients girlfriend states that the patient has a history of 2 stents placed, stage 2 kidney disease, and sleep apnea. She denies that the patient has a history of lung disease. She adds that the patient fell and broke his ribs a couple of weeks ago. Home Medications Home Medications Medication Instructions Recorded Confirmed Type Novolog Flexpen U-100 Insulin 0 unit SUBCUT TIDM 05/22/19 05/27/19 History Tradjenta 5 mg PO DAILY 05/22/19 05/27/19 History Tresiba FlexTouch U-200 72 unit SUBCUT HS 05/22/19 05/27/19 History Vascepa 1 g PO BID 05/22/19 05/27/19 History acetaminophen-codeine 1 tab PO UD PRN 05/22/19 05/27/19 History alprazolam [Xanax] 0.25 mg PO Q8 PRN 05/22/19 05/27/19 History aspirin 162 mg PO DAILY 05/22/19 05/27/19 History cholecalciferol (vitamin D3) 3,000 unit PO DAILY 05/22/19 05/27/19 History [Vitamin D3] colchicine [Colcrys] 0.6 mg PO DAILY PRN 05/22/19 05/27/19 History cyanocobalamin (vitamin B-12) 1,000 mcg PO DAILY 05/22/19 05/27/19 History [Vitamin B-12] duloxetine 60 mg PO DAILY 05/22/19 05/27/19 History isosorbide mononitrate 90 mg PO DAILY 05/22/19 05/27/19 History meclizine 12.5 mg PO Q8 PRN 05/22/19 05/27/19 History niacin 500 mg PO DAILY 05/22/19 05/27/19 History prasugrel [Effient] 10 mg PO DAILY 05/22/19 05/27/19 History ramipril 5 mg PO DAILY 05/22/19 05/27/19 History simvastatin 20 mg PO HS 05/22/19 05/27/19 History tamsulosin 0.4 mg PO DAILY 05/22/19 05/27/19 History carvedilol 18.75 mg PO BID 30 Days #180 tab 05/26/19 05/27/19 Rx nifedipine [Adalat CC] 30 mg PO HS 30 Days #30 tab 05/26/19 05/27/19 Rx Allergies Allergy/AdvReac Type Severity Reaction Status Date / Time cucumber Allergy Severe reports Verified 05/27/19 09:06 rash/hives NSAIDS (Non-Steroidal AdvReac Severe to avoid Verified 05/27/19 09:06 Anti-Inflamma due to poor renal fxn oseltamivir [From Tamiflu] AdvReac Unknown Confusion Verified 05/27/19 09:06 Past Med/Surg History Medical History CKD (chronic kidney disease) stage 3, GFR 30-59 ml/min Heart attack Melanoma s/p 06/2018 excision Surgical History H/O left radical nephrectomy 2011 for renal cell carcinoma History of intravascular stent placement 2008, 2009 Family History Father Coronary heart disease Brother Diabetes Social History Preferred Language: Amharic Communication Ability: Effective Cell Inspector Required: No Beliefs That Will Affect Care: None Current Living Situation: Alone Other Information That Helps Us Care for You: No Feels Safe at Home: Yes Safety Concerns: Feels Safe At This Time Smoking Status: Never smoker Hx Alcohol Use: Yes Hx Substance Use: No Review of Systems See HPI for pertinent positives & negatives. and A total of 10 systems reviewed and were otherwise negative Physical Exam Vital Signs Vital Signs - 24 hr 05/27/19 08:24 05/27/19 08:28 05/27/19 08:50 Temperature 36.4 C L Temperature Source Oral Sepsis Recent Fever Within 48 Hours No Sepsis Action Taken by Nursing No Action Required Pulse Rate 86 82 Pulse Rate [Left Finger] 79 Pulse Rhythm [Left Finger] Pulse Strength [Left Finger] Respiratory Rate 21 14 20 Respiratory Effort / Characteristics Non-Labored Respiratory Depth Normal Respiratory Pattern Blood Pressure 142/72 H Blood Pressure [Left Arm] 121/70 Blood Pressure Mean 95 Blood Pressure Mean [Left Arm] 87 Blood Pressure Position [Left Arm] Pulse Oximetry 96 95 95 Oxygen Delivery Method Room Air Room Air Room Air 05/27/19 10:28 05/27/19 12:00 Temperature Temperature Source Sepsis Recent Fever Within 48 Hours Sepsis Action Taken by Nursing Pulse Rate Pulse Rate [Left Finger] 77 79 Pulse Rhythm [Left Finger] Regular Pulse Strength [Left Finger] Normal Respiratory Rate 18 18 Respiratory Effort / Characteristics Non-Labored Spontaneous Respiratory Depth Normal Respiratory Pattern Regular Blood Pressure Blood Pressure [Left Arm] 133/75 140/81 Blood Pressure Mean Blood Pressure Mean [Left Arm] 94 100 Blood Pressure Position [Left Arm] Lying Pulse Oximetry 93 95 Oxygen Delivery Method Room Air Room Air General: Moderately-ill appearing middle-aged male in no acute distress. HEENT: Normal cephalic atraumatic. Pupils are equal round and reactive to light. Extraocular movements are intact. Oropharynx is pink with moist mucous membranes. No swelling of the mouth lips or tongue. Neck: Supple with a midline trachea. No meningeal signs or stiffness, no JVD or bruits. No Stridor. Chest: Coarse breath sounds at bilateral bases. No wheezes or rhonchi. No increased work of breathing. Heart: Mildly tachycardic rate and regular rhythm. Abdomen: Soft nontender, nondistended without rebound guarding or rigidity. Extremities: No cyanosis or clubbing. No calf tenderness or asymmetry. Trace pedal edema bilaterally. Spine/Back. Non tender to palpation. No CVA tenderness Skin: Good turgor without rashes. Neurologic exam: Cranial nerves two through 12 are intact. Motor and sensation are intact and symmetrical throughout. Course 0834: The patient was evaluated in room B11B. A complete history and physical exam was performed. 1006: I re-checked the patient and he is looking better. The patient is coughing and has an abnormal white count. The patient has a possible pneumonia so I ordered a CT Chest. 1205: The patient's CT scan shows a finding or CHF rather than pneumonia. 1223: I reviewed the patient's case with Leslee Smith PA-C. She will eval uate the patient for further management. 1230: I reviewed the patient's [facility] He thinks that we should keep the patient here. 1240: I reviewed the patient's case with Dr. Cowan, [facility]. He will evaluate the patient for further management. Administered Medications Discontinued Medications Cefepime HCl 2,000 mg/ Syringe 20 mls @ 5.5 mls/min IV NOW STA; Protocol Stop: 05/27/19 10:08 Last Admin: 05/27/19 10:58 Dose: 5.5 mls/min Documented by: [id number] Medical Decision Making Differential Diagnosis Differential diagnosis includes: CHF, pneumonia, cardiac disease, pneumothorax, PE, metabolic/electrolyte abnormality Medical Records Attestation: I reviewed the patient's medical records. Home Medications Current Medication List: was personally reviewed by me Laboratory Data Attestation: I reviewed the patient's lab results. Result diagrams: 05/27/19 08:28 05/27/19 08:28 Lab Results 05/27/19 05/27/19 05/27/19 Range/Units 08:28 08:28 08:28 WBC 12.08 H (4.8-10.8) K/uL RBC 3.84 L (4.7-6.1) M/uL Hgb 11.3 L (14.0-18.0) g/dL Hct 35.2 L (42-52) % MCV 91.7 (80-100) fL MCH 29.4 (25-34) pg MCHC 32.1 (32-36) g/dL RDW Std Deviation 44.5 (36.4-46.3) fL RDW Coeff of Terell 13.4 (11.5-14.5) % Plt Count 250 (130-400) K/uL MPV 9.8 (7.4-10.4) fL Immature Gran % (Auto) 0.7 % Neut % (Auto) 77.0 % Lymph % (Auto) 13.5 % Coos % (Auto) 6.6 % Eos % (Auto) 2.1 % Baso % (Auto) 0.1 % Immature Gran # (Auto) 0.08 H (0.00-0.02) K/uL Neut # (Auto) 9.31 H (1.4-6.5) K/uL Lymph # (Auto) 1.63 (1.2-3.4) K/uL Coos # (Auto) 0.80 H (0.11-0.59) K/uL Eos # (Auto) 0.25 (0-0.5) K/uL Baso # (Auto) 0.01 (0-0.2) K/uL PT 10.3 (9.0-12.0) Seconds INR 1.0 (0.9-1.1) APTT 27.0 (21.0-31.0) Seconds PTT Ratio 1.0 Sodium 139 (136-145) mmol/L Potassium 4.5 (3.5-5.1) mmol/L Chloride 109 H (98-107) mmol/L Carbon Dioxide 24 (21-32) mmol/L Anion Gap 6.0 (3-11) BUN 48 H (7-18) mg/dl Creatinine 2.72 H (0.6-1.4) mg/dl Est Cr Clr Drug Dosing Not Reportable Est GFR ( Amer) 28.8 Est GFR (Non-Af Amer) 24.8 BUN/Creatinine Ratio 17.6 (10-20) Glucose 159 H (70-99) mg/dl Lactate (0.4-2.0) mmol/L Calcium 8.3 L (8.5-10.1) mg/dl Total Bilirubin 0.3 (0.2-1) mg/dl AST 42 H (15-37) U/L ALT 45 (12-78) U/L Alkaline Phosphatase 197 H (45-117) U/L Troponin I < 0.015 (0-0.045) ng/ml NT-Pro-B Natriuret Pep 426 (0-900) pg/ml Total Protein 7.3 (6.4-8.2) gm/dl Albumin 3.3 L (3.4-5.0) gm/dl Globulin 4.0 (2.5-4.0) gm/dl Albumin/Globulin Ratio 0.8 L (0.9-2) Lipase 503 H (73-393) U/L Procalcitonin (0-0.5) ng/ml 05/27/19 05/27/19 Range/Units 10:12 10:12 WBC (4.8-10.8) K/uL RBC (4.7-6.1) M/uL Hgb (14.0-18.0) g/dL Hct (42-52) % MCV (80-100) fL MCH (25-34) pg MCHC (32-36) g/dL RDW Std Deviation (36.4-46.3) fL RDW Coeff of Terell (11.5-14.5) % Plt Count (130-400) K/uL MPV (7.4-10.4) fL Immature Gran % (Auto) % Neut % (Auto) % Lymph % (Auto) % Coos % (Auto) % Eos % (Auto) % Baso % (Auto) % Immature Gran # (Auto) (0.00-0.02) K/uL Neut # (Auto) (1.4-6.5) K/uL Lymph # (Auto) (1.2-3.4) K/uL Coos # (Auto) (0.11-0.59) K/uL Eos # (Auto) (0-0.5) K/uL Baso # (Auto) (0-0.2) K/uL PT (9.0-12.0) Seconds INR (0.9-1.1) APTT (21.0-31.0) Seconds PTT Ratio Sodium (136-145) mmol/L Potassium (3.5-5.1) mmol/L Chloride (98-107) mmol/L Carbon Dioxide (21-32) mmol/L Anion Gap (3-11) BUN (7-18) mg/dl Creatinine (0.6-1.4) mg/dl Est Cr Clr Drug Dosing Est GFR ( Amer) Est GFR (Non-Af Amer) BUN/Creatinine Ratio (10-20) Glucose (70-99) mg/dl Lactate 0.6 (0.4-2.0) mmol/L Calcium (8.5-10.1) mg/dl Total Bilirubin (0.2-1) mg/dl AST (15-37) U/L ALT (12-78) U/L Alkaline Phosphatase (45-117) U/L Troponin I (0-0.045) ng/ml NT-Pro-B Natriuret Pep (0-900) pg/ml Total Protein (6.4-8.2) gm/dl Albumin (3.4-5.0) gm/dl Globulin (2.5-4.0) gm/dl Albumin/Globulin Ratio (0.9-2) Lipase (73-393) U/L Procalcitonin 0.21 (0-0.5) ng/ml Imaging Data Radiologist's Impression: Radiology results as stated below per my review and the radiologist's interpretation: XR chest 1V portable CLINICAL HISTORY: Chest Pain COMPARISON STUDY: Chest radiograph May 24, 2019. FINDINGS: Lung volumes are at the lower limits of normal. There is no pneumothorax or pleural effusion. Moderate cardiomegaly is noted without evidence for pulmonary edema. Several right-sided rib fractures are again noted, as shown on right rib series of May 22, 2019. There are suspected bibasilar retrocardiac opacities. IMPRESSION: 1. Suspected bibasilar retrocardiac opacities which may reflect pneumonia or atelectasis. 2. Redemonstration of several right-sided rib fractures as shown on right rib series May 22, 2019. No pneumothorax. Electronically signed by: Juan Jose Titus M.D. 05/27/2019 9:[address] OF THE CHEST WITHOUT IV CONTRAST CLINICAL HISTORY: Chest pain. Evaluate for pneumonia. COMPARISON STUDY: Chest radiograph and right rib series May 22, 2019. CT DOSE: 936.16 mGy.cm TECHNIQUE: Axial images of the chest were obtained without IV contrast. Images were reviewed in the axial, sagittal, and coronal planes. IV contrast was not administered for this examination. Automated exposure control was utilized for the study. A dose lowering technique was utilized adhering to the principles of ALARA. FINDINGS: No mediastinal hematoma is present. The heart is mildly enlarged. A prominent subcarinal lymph node is at the upper limits of normal for size. There is bilateral gynecomastia. No pneumothorax is present. There are small bilateral pleural effusions with bibasilar opacities consistent with atelectasis. Interlobular septal thickening indicates pulmonary edema. There is a 1 cm ground glass opacity with central nodular density within the left lower lobe on image 165 of 301. Right-sided rib fractures are again noted as shown in rib series May 22, 2019. These fractures are essentially nondisplaced. There are fractures of the right fifth through eighth ribs. Upper abdomen is unremarkable. IMPRESSION: 1. Small bilateral pleural effusions with bibasilar opacities consistent with atelectasis. No CT evidence for pneumonia. 2. Mild pulmonary edema. 3. Acute essentially nondisplaced right fifth through eighth rib fractures. No pneumothorax. Electronically signed by: Juan Jose Titus M.D. 05/27/2019 11:20 AM ECG Data Attestation: I personally reviewed and interpreted this ECG as follows: Indication: SOB/dyspnea Rate (beats per minute): 81 Rhythm: normal sinus Findings: + other (non-specific T-wave abnormality, moderately prolonged QT); no acute ischemic change Comparison ECG Date: from (05/24/19) Change: the following changes noted (prolonged QT is new, otherwise no change) Blood Pressure Blood Pressure Findings: Elevated blood pressure Blood Pressure Disposition: further management by hospitalist RENETTA Narrative This patient comes in as described above. He was placed in room B 11. He was discharged yesterday after being admitted with shortness of breath and elevated blood pressure. He had a cardiac cath which shows diffuse disease that was felt to be medically managed at this point with other follow-up with cards for possible revascularization in the future. His girlfriend says that he is been wheezing since last night. he does not have any history of pulmonary disease. She feels that he has had some weight gain over the last week or so. He fell and broke his ribs a couple weeks ago and still has pain on the right. He has had some cough but no fever. IV access established and blood work was obtained. EKG does not suggest acute coronary syndrome or arrhythmia. Chest x-ray shows no definite infiltrate or pneumothorax. No overt CHF. There may be a retrocardiac infiltrate. White count is mildly elevated 12. Troponin is not elevated. BNP is not elevated. He was given a dose of IV antibiotics to cover the possibility for infection although after the noncontrast CT that seems less likely. His lactic acid and procalcitonin are also normal. His creatinine has increased to 2.7 further complicating this. I did discuss case with Dr. Hankins who does feel like he needs to be admitted here as well as the [facility] hospitalist they will see him in the ER for these measures. Impression & Plan SOB (shortness of breath), CHF (congestive heart failure), CKD (chronic kidney disease) stage 3, GFR 30-59 ml/min, Lower extremity edema The scribe's documentation has been prepared under my direction and personally reviewed by me in its entirety. I confirm that the note above accurately reflects all work, treatment, procedures, and medical decision making performed by me.
[2019-05-27] MEDS ORDERED: GLUCOSE 40% GEL 15 GM TUBE PO PRN (15:00)
[2019-05-27] MEDS ORDERED: GLUCOSE 10 TABS/TUBE PO PRN (15:00)
[2019-05-27] MEDS ORDERED: DEXTROSE 50% 50 ML SYRINGE IV PRN (15:00)
[2019-05-27] MEDS ORDERED: CARBOHYDRATES FOR HYPOGLYCEMIA PO PRN (15:00)
[2019-05-27] MEDS ORDERED: GLUCAGON FOR INJ 1 MG VIAL SQ PRN (15:00)
[2019-05-27] MEDS ORDERED: TAMSULOSIN HCL 0.4 MG CAP PO ONE (15:27)
[2019-05-27] MEDS ORDERED: ISOSORBIDE MONO EXTENDED REL 30 MG TABCR PO STA (15:27)
[2019-05-27] MEDS ORDERED: METOPROLOL TARTRATE 1 MG/ML VIAL IV STA (15:27)
[2019-05-27] MEDS ORDERED: PRASugrel TAB 10 MG TAB PO STA (15:27)
[2019-05-27] MEDS: INSULIN ASPART 100 UNITS/ML 3 ML PEN SC SCH ×2 (16:47→20:28)
[2019-05-27] MEDS: PRASugrel TAB 10 MG TAB PO SCH (20:27)
[2019-05-27] MEDS: CARVEDILOL 6.25 MG TAB PO SCH (20:28)
[2019-05-27] MEDS: NIFEdipine EXTENDED REL 30 MG TABCR PO SCH (20:29)
[2019-05-27] MEDS ORDERED: INSULIN GLARGINE SOLOSTAR 100 UNITS/ML 3 ML PEN SC SCH ×2 (21:00)
[2019-05-27] MEDS: SIMVASTATIN 20 MG TAB PO SCH (21:04)
[2019-05-28 06:15] LABS: Basophils # (auto) 0.02 K/uL (0-0.2); Basophils % (auto) 0.2 %; Eosinophils # (auto) 0.27 K/uL (0-0.5); Eosinophils % (auto) 2.1 %; Hematocrit (blood only) 36.6 % (42-52); Hemoglobin 11.7 g/dL (14.0-18.0); Immature Granulocytes # (auto) 0.07 K/uL (0.00-0.02); Immature Granulocytes % (auto) 0.5 %; Lymphocytes # (auto) 1.76 K/uL (1.2-3.4); Lymphocytes % (auto) 13.6 %; Mean Corpuscular Hemoglobin 29.2 pg (25-34); Mean Corpuscular Volume 91.3 fL (80-100); Mean Platelet Volume 9.9 fL (7.4-10.4); Monocytes # (auto) 1.22 K/uL (0.11-0.59); Monocytes % (auto) 9.5 %; Neutrophils # (auto) 9.56 K/uL (1.4-6.5); Neutrophils % (auto) 74.1 %; Platelet Count 262 K/uL (130-400); RDW Coefficient of Variation 13.5 % (11.5-14.5); RDW Standard Deviation 44.9 fL (36.4-46.3); Red Blood Count 4.01 M/uL (4.7-6.1)
--- NOTE | 2019-05-28 06:19 | History & Physical Report ---
Date of Service delayed entry date of service 05/27/19 May 28, 2019 Assessment & Plan (1) CHF (congestive heart failure): ACUTE ON CHRONIC CONGESTIVE HEART FAILURE EXACERBATION, SYSTOLIC AND DIASTOLIC TYPE EF 45 %, Grade 2 Diastolic CHF - discussed with [employer] and Community Service Specialist - will start Lasix 40mg IV one dose monitor crea ACUTE RENAL FAILURE ON CKD 3, SOLITARY KIDNEY History of renal cell carcinoma(clear cell) status post nephrectomy CKD stage III -baseline 2.2 now 2.7 - monitor while on Lasix HYPERTENSION continue: Nifedipine xl 30 mg at bedtime Ramipril 5 mg daily Imdur 90 mg daily flomax 0.4 mg daily. RECENT NSTEMI (non-ST elevated myocardial infarction): in the setting of HTN urgency Cardiac cath : LM -luminal irregularities LAD -20 to 30% ostial, diffuse 50% mid at takeoff of first septal extending past takeoff of second diagonal. 99% earlydistal and 99% stenosis as wraps around apex. Bifurcating first septal with high-grade ostial stenosis. Moderate caliber second diagonal with luminal irregularities and LAUREN-3 flow. Circumflex -moderate caliber vessel, 20 to 30% ostial. Very small OM 2 occluded with partial filling distally via left to left collaterals. Very small left PLB with 95% stenosis. RCA -dominant, patent proximal to mid stents, latemid luminal irregularities, 30 to 40% distal stenosis prior to takeoff of right PDA. LVEDP -30-elevated Summary: 1. Severe single vessel chronic coronary artery disease -50% diffuse mid LAD, sequential 99% distal LAD lesions 2. Elevated intracardiac filling pressure --- resolved with improvement in blood pressure continue Aspirin, Effient HISTORY OF MELANOMA IN BACK Status post wide margin resection No recent recurrence as per patient CODE STATUS: Full code DVT prophylaxis: will order Subcu heparin Disposition: pending anticipate d/c home when medically stable History of Present Illness Primary Care Provider: Reuben Castano MD Patient is a 59 year old male with Ischemic Cardiomyopathy, Diastolic Dysfunction, CKD 3, HTN presenting with dyspnea on exertion, wheezing. Patient was discharged the previous day after being treated for HTN and chest pain. As per , patient was noted to have wheezing and dyspnea on minimal exertion starting the previous evening. No cough, fever/chills, chest pain. CT chest at the ER showed possible pulmonary edema. Crea increased to 2.7 Allergies Allergy/AdvReac Type Severity Reaction Status Date / Time cucumber Allergy Severe reports Verified 05/27/19 09:06 rash/hives NSAIDS (Non-Steroidal AdvReac Severe to avoid Verified 05/27/19 09:06 Anti-Inflamma due to poor renal fxn oseltamivir [From Tamiflu] AdvReac Unknown Confusion Verified 05/27/19 09:06 Home Medications Home Medications Medication Instructions Recorded Confirmed Type Novolog Flexpen U-100 Insulin 0 unit SUBCUT TIDM 05/22/19 05/27/19 History Tradjenta 5 mg PO DAILY 05/22/19 05/27/19 History Tresiba FlexTouch U-200 72 unit SUBCUT HS 05/22/19 05/27/19 History Vascepa 1 g PO BID 05/22/19 05/27/19 History acetaminophen-codeine 1 tab PO UD PRN 05/22/19 05/27/19 History alprazolam [Xanax] 0.25 mg PO Q8 PRN 05/22/19 05/27/19 History aspirin 162 mg PO DAILY 05/22/19 05/27/19 History cholecalciferol (vitamin D3) 3,000 unit PO DAILY 05/22/19 05/27/19 History [Vitamin D3] colchicine [Colcrys] 0.6 mg PO DAILY PRN 05/22/19 05/27/19 History cyanocobalamin (vitamin B-12) 1,000 mcg PO DAILY 05/22/19 05/27/19 History [Vitamin B-12] duloxetine 60 mg PO DAILY 05/22/19 05/27/19 History isosorbide mononitrate 90 mg PO DAILY 05/22/19 05/27/19 History meclizine 12.5 mg PO Q8 PRN 05/22/19 05/27/19 History niacin 500 mg PO DAILY 05/22/19 05/27/19 History prasugrel [Effient] 10 mg PO DAILY 05/22/19 05/27/19 History ramipril 5 mg PO DAILY 05/22/19 05/27/19 History simvastatin 20 mg PO HS 05/22/19 05/27/19 History tamsulosin 0.4 mg PO DAILY 05/22/19 05/27/19 History carvedilol 18.75 mg PO BID 30 Days #180 tab 05/26/19 05/27/19 Rx nifedipine [Adalat CC] 30 mg PO HS 30 Days #30 tab 05/26/19 05/27/19 Rx Past Med/Surg History Medical History CKD (chronic kidney disease) stage 3, GFR 30-59 ml/min Heart attack Melanoma s/p 06/2018 excision Surgical History H/O left radical nephrectomy 2011 for renal cell carcinoma History of intravascular stent placement 2008, 2009 Family History Father Coronary heart disease Brother Diabetes Social History Preferred Language: British Communication Ability: Effective 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 Beliefs That Will Affect Care: None Current Living Situation: Alone Other Information That Helps Us Care for You: No Feels Safe at Home: Yes Safety Concerns: Feels Safe At This Time Smoking Status: Never smoker Hx Alcohol Use: Yes Hx Substance Use: No Review of Systems Review of Systems: All systems reviewed & are unremarkable except as noted in HPI & below Physical Exam Physical Exam: General- oriented x 3, not in distress, speaks in sentences with no effort or accessory muscle use Head- atraumatic Eyes- PERRL, EOMI, anicteric ENT- oropharynx clear Neck- supple, no JVD, no adenopathy, no thyromegaly; carotids +2/2, no bruits appreciated Lungs- faint wheeze bilaterally Heart- normal rate, regular rhythm; no murmur, no gallop, no rub appreciated Abdomen- normal bowel sounds, nondistended, soft, nontender, no masses or hepatosplenomegaly Extremities-(+) lower leg edema- grade 1, no calf tenderness; peripheral pulses intact Neuro- alert, oriented x 3; CN 2-12 grossly intact; motor 5/5 bilaterally;sensation 100% on all extremities; no other gross focal neurologic deficits Skin- warm & dry Results & Data Vital Signs (Past 12 Hours) Vital Signs Temp Pulse Resp BP Pulse Ox 05/28/19 03:07 36.5 C 89 16 156/73 H 98 05/27/19 23:10 36.7 C 83 16 139/79 98 05/27/19 19:15 36.6 C 81 20 148/82 H 97 Laboratory Results all noted and reviewed Code Status & VTE Plan VTE Prophylaxis Plan VTE Prophylaxis will be ordered: Yes (1) CHF (congestive heart failure) Heart failure chronicity: acute Heart failure type: unspecified Qualified Code(s): I50.9 - Heart failure, unspecified
[2019-05-28 06:54] LABS: BUN Creatinine Ratio 18.2 (10-20); Calcium 8.6 mg/dl (8.5-10.1); Creatinine Clr Calc Pharmacy 37.5 ml/min; Est GFR (African American) 29.5; Est GFR (Non-African American) 25.5; Potassium 4.2 mmol/L (3.5-5.1)
[2019-05-28] MEDS: CHOLECALCIFEROL 1,000 UNITS TAB PO SCH (08:59)
[2019-05-28] MEDS: ASPIRIN 81 MG ECTAB PO SCH (08:59)
[2019-05-28] MEDS: DULOXETINE HCL 60 MG CAP PO SCH (09:00)
[2019-05-28] MEDS ORDERED: PRASugrel TAB 10 MG TAB PO SCH (09:00)
[2019-05-28] MEDS: NIACIN EXTENDED REL 500 MG TABCR PO SCH (09:00)
[2019-05-28] MEDS: CYANOCOBALAMIN 500 MCG TABLET (VITAMIN B-12) PO SCH (09:00)
[2019-05-28] MEDS: TAMSULOSIN HCL 0.4 MG CAP PO SCH (09:01)
[2019-05-28] MEDS: CARVEDILOL 6.25 MG TAB PO SCH ×2 (09:01→19:35)
[2019-05-28] MEDS: ISOSORBIDE MONO EXTENDED REL 30 MG TABCR PO SCH (09:01)
[2019-05-28] MEDS: INSULIN ASPART 100 UNITS/ML 3 ML PEN SC SCH ×4 (09:02→21:04)
--- NOTE | 2019-05-28 09:46 | Pharmacy Report ---
Pharmacy Glycemic Short Note 2 - Date of Service May 28, 2019 - Glycemic Short BSG Results (Last 24 hours): 05/27/19 05/27/19 05/27/19 14:05 16:11 20:06 Glucose POC Glucose 160 H 95 90 05/28/19 05/28/19 05/28/19 05:37 05:39 05:45 Glucose 50 L* POC Glucose 45 L* 45 L* 05/28/19 05/28/19 05/28/19 05:51 06:07 07:14 Glucose POC Glucose 70 98 148 H OUTPATIENT ANTIDIABETIC REGIMEN: * Tresiba 72 units qHS * Novolog with meals () + SS * Tradjenta 5 mg daily * A1c = 8 % 05/22/19 Risk Factors for Insulin Resistance: * Diet: T2DM - Assessment & Plan ASSESSMENT: 05/28 * Patient had a hypoglycemic episode this AM, symptomatic. Hypoglycemia protocol was used and recheck was appropriate. Dose of Lantus given last night was reduced further by evening pharmacist when BSGs were running less than goal. 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 * Will plan to reduce basal insulin further tonight, but provide a scale to give a higher dose if BSGs start to increase with lower basal on board * Postprandial BSGs were low so parameters were tightened this AM, especially in the setting of hypoglycemia. Now BSG has increased to 240 mg/dL prior to lunch -> will tighten back to previously ordered parameters. 05/27 * 59 y/o male re-admitted for wheezing after discharge yesterday for NSTEMI. Patient has a history of T2DM, managed with basal + bolus insulin as an outpatient plus DPP-4 oral agent. Will hold oral agent for admission and utilize basal + bolus insulin in the form of Lantus + Novolog. Will use dosing similar to previous admission, which was TDD ~ 50 units. PLAN FOR INPATIENT GLYCEMIC CONTROL: * Hold outpatient oral diabetes medications * Basal insulin - decrease in the setting of severe hypoglycemia this AM; suspect this will eventually need to be increased * Lantus qHS: * 10 units for BSG < 180 (50% reduction from 05/27 dose) * 15 units for BSG 180 or above (25% reduction from 05/27 dose) * Bolus insulin - these were loosened this AM but will change back to parameters ordered yesterday now that BSG > 200 mg/dL * NovoLog per scale ACHS or Q6hrs while NPO * Goal Range: Low 110 mg/dL - High 150 mg/dL * Correction Factor: 30 mg/dL/unit * Nutritional / Prandial insulin per carb ratio of 1 unit per 10 grams CHO consumed PLAN FOR DISCHARGE: * see 05/27 note
--- NOTE | 2019-05-28 09:53 | Cardiology Progress Note ---
Date of Service May 28, 2019 Assessment & Plan (1) SOB (shortness of breath): (2) CHF (congestive heart failure): (3) Ischemic cardiomyopathy: (4) CKD (chronic kidney disease) stage 3, GFR 30-59 ml/min: (5) Solitary kidney, acquired: I would continue the diuretics through today and reassess the patient tomorrow. He should have serial metabolic profiles to monitor his renal function. Subjective The patient had a large diuresis yesterday. He feels substantially better. He is resting comfortably. Review of Systems Review of Systems: All systems reviewed & are unremarkable except as noted in HPI & below Nothing additional to add. Physical Exam Physical Exam: General: no acute distress and stated age Head: normocephalic, no masses, lesions, tenderness or abnormalities Eyes: conjunctiva are pink and non-injected, sclera clear Neck: supple, no adenopathy, no bruits, normal jugular venous pulse, no hepatojugular reflux Chest: normal shape and normal respiratory effort Lungs: clear to auscultation and percussion Cardiac Exam: - regular rate & rhythm, no murmurs gallops or rubs - normal S1, normal S2 Pulses: 2(+) throughout Abdomen: abdomen soft, non-tender, no abnormal masses and no hepatosplenomegaly Musculoskeletal: no gait disturbance, no joint inflammation, no deforming arthritis Extremities: no edema and no cyanosis Neuro: grossly normal exam Results & Data Vital Signs (Past 12 Hours) Vital Signs Temp Pulse Resp BP Pulse Ox 05/28/19 07:13 37.0 C 82 18 163/75 H 98 05/28/19 03:07 36.5 C 89 16 156/73 H 98 05/27/19 23:10 36.7 C 83 16 139/79 98 Laboratory Results Laboratory Results - last 24 hr 05/27/19 05/27/19 05/27/19 10:12 10:12 14:05 WBC RBC Hgb Hct MCV MCH MCHC RDW Std Deviation RDW Coeff of Terell Plt Count MPV Immature Gran % (Auto) Neut % (Auto) Lymph % (Auto) [place] % (Auto) Eos % (Auto) Baso % (Auto) Immature Gran # (Auto) Neut # (Auto) Lymph # (Auto) [place] # (Auto) Eos # (Auto) Baso # (Auto) Sodium Potassium Chloride Carbon Dioxide Anion Gap BUN Creatinine Est Cr Clr Drug Dosing Est GFR ( Amer) Est GFR (Non-Af Amer) BUN/Creatinine Ratio Glucose POC Glucose 160 H Lactate 0.6 Calcium Procalcitonin 0.21 05/27/19 05/27/19 05/28/19 16:11 20:06 05:37 WBC RBC Hgb Hct MCV MCH MCHC RDW Std Deviation RDW Coeff of Terell Plt Count MPV Immature Gran % (Auto) Neut % (Auto) Lymph % (Auto) [place] % (Auto) Eos % (Auto) Baso % (Auto) Immature Gran # (Auto) Neut # (Auto) Lymph # (Auto) [place] # (Auto) Eos # (Auto) Baso # (Auto) Sodium Potassium Chloride Carbon Dioxide Anion Gap BUN Creatinine Est Cr Clr Drug Dosing Est GFR ( Amer) Est GFR (Non-Af Amer) BUN/Creatinine Ratio Glucose POC Glucose 95 90 45 L* Lactate Calcium Procalcitonin 05/28/19 05/28/19 05/28/19 05:39 05:45 05:45 WBC 12.90 H RBC 4.01 L Hgb 11.7 L Hct 36.6 L MCV 91.3 MCH 29.2 MCHC 32.0 RDW Std Deviation 44.9 RDW Coeff of Terell 13.5 Plt Count 262 MPV 9.9 Immature Gran % (Auto) 0.5 Neut % (Auto) 74.1 Lymph % (Auto) 13.6 [place] % (Auto) 9.5 Eos % (Auto) 2.1 Baso % (Auto) 0.2 Immature Gran # (Auto) 0.07 H Neut # (Auto) 9.56 H Lymph # (Auto) 1.76 [place] # (Auto) 1.22 H Eos # (Auto) 0.27 Baso # (Auto) 0.02 Sodium 142 Potassium 4.2 Chloride 111 H Carbon Dioxide 23 Anion Gap 8.0 BUN 48 H Creatinine 2.66 H Est Cr Clr Drug Dosing 37.5 Est GFR ( Amer) 29.5 Est GFR (Non-Af Amer) 25.5 BUN/Creatinine Ratio 18.2 Glucose 50 L* POC Glucose 45 L* Lactate Calcium 8.6 Procalcitonin 05/28/19 05/28/19 05/28/19 05:51 06:07 07:14 WBC RBC Hgb Hct MCV MCH MCHC RDW Std Deviation RDW Coeff of Terell Plt Count MPV Immature Gran % (Auto) Neut % (Auto) Lymph % (Auto) [place] % (Auto) Eos % (Auto) Baso % (Auto) Immature Gran # (Auto) Neut # (Auto) Lymph # (Auto) [place] # (Auto) Eos # (Auto) Baso # (Auto) Sodium Potassium Chloride Carbon Dioxide Anion Gap BUN Creatinine Est Cr Clr Drug Dosing Est GFR ( Amer) Est GFR (Non-Af Amer) BUN/Creatinine Ratio Glucose POC Glucose 70 98 148 H Lactate Calcium Procalcitonin Medications Administered Current Inpatient Medications Acetaminophen/Codeine Phosphate (Tylenol W/Codeine #3) 1 tab PO Q6H PRN PRN Reason: Pain Stop: 06/26/19 14:27 Alprazolam (Xanax) 0.25 mg PO Q8 PRN PRN Reason: Anxiety Stop: 06/26/19 14:04 Aspirin (Ecotrin Ectab) 162 mg PO DAILY ANNE Stop: 06/27/19 08:59 Last Admin: 05/28/19 08:59 Dose: 162 mg Documented by: Carvedilol (Coreg) 18.75 mg PO BID ANNE Stop: 06/26/19 20:59 Last Admin: 05/28/19 09:01 Dose: 18.75 mg Documented by: Cyanocobalamin (Vitamin B-12) 1,000 mcg PO DAILY ANNE Stop: 06/27/19 08:59 Last Admin: 05/28/19 09:00 Dose: 1,000 mcg Documented by: Dextrose (Dextrose 50%) 25 - 50 ml IV UD PRN; Protocol PRN Reason: Hypoglycemia Protocol Stop: 06/26/19 14:59 Duloxetine HCl (Cymbalta) 60 mg PO DAILY ANNE Stop: 06/27/19 08:59 Last Admin: 05/28/19 09:00 Dose: 60 mg Documented by: Glucagon (Glucagen) 1 mg SQ UD PRN; Protocol PRN Reason: Hypoglycemia Protocol Stop: 06/26/19 14:59 Glucose (Glucose 40%) 15 - 30 gm PO UD PRN; Protocol PRN Reason: Hypoglycemia Protocol Stop: 06/26/19 14:59 Glucose (Dex4 Glucose) 4 - 8 tabs PO UD PRN; Protocol PRN Reason: Hypoglycemia Protocol Stop: 06/26/19 14:59 Furosemide 40 mg/ Syringe 4 mls @ 4 mls/min IV BID ANNE Stop: 06/27/19 09:59 Insulin Aspart (Novolog Flexpen) 0 units SC ACHS [facility]; Protocol Stop: 06/26/19 16:29 Last Admin: 05/28/19 09:02 Dose: 3 units Documented by: Insulin Glargine (Lantus Solostar Pen) 0 units SC HS [facility]; Protocol Stop: 06/27/19 20:59 Isosorbide Mononitrate (Imdur Extended Rel) 90 mg PO DAILY ANNE Stop: 06/27/19 08:59 Last Admin: 05/28/19 09:01 Dose: 90 mg Documented by: Meclizine HCl (Antivert) 12.5 mg PO Q8 PRN PRN Reason: Dizziness Stop: 06/26/19 14:04 Miscellaneous (Order Awaiting Action) 1 ea N/A QS ANNE Stop: 06/26/19 15:59 Last Admin: 05/28/19 07:32 Dose: Not Given Documented by: Miscellaneous (Carbohydrates For Hypoglycemia) 15 - 30 gm PO UD PRN PRN Reason: Hypoglycemia Treatment Stop: 06/26/19 14:59 Last Admin: 05/28/19 05:41 Dose: 30 gm Documented by: Miscellaneous Information (Consult Glycemic Management Pharmacy) 1 ea N/A UD PRN PRN Reason: Consult Stop: 06/26/19 14:35 Niacin (Niaspan Extended Rel) 500 mg PO DAILY ANNE Stop: 06/27/19 08:59 Last Admin: 05/28/19 09:00 Dose: 500 mg Documented by: Nifedipine (Procardia Xl) 30 mg PO HS ANNE Stop: 06/26/19 20:59 Last Admin: 05/27/19 20:29 Dose: 30 mg Documented by: Prasugrel (Effient) 10 mg PO HS ANNE Stop: 06/26/19 20:59 Last Admin: 05/27/19 20:27 Dose: 10 mg Documented by: Simvastatin (Zocor) 20 mg PO HS ANNE Stop: 06/26/19 20:59 Last Admin: 05/27/19 21:04 Dose: 20 mg Documented by: Tamsulosin HCl (Flomax) 0.4 mg PO DAILY ANNE Stop: 06/27/19 08:59 Last Admin: 05/28/19 09:01 Dose: 0.4 mg Documented by: Vitamin D (Vitamin D3) 3,000 units PO DAILY ANNE Stop: 06/27/19 08:59 Last Admin: 05/28/19 08:59 Dose: 3,000 units Documented by: (1) CHF (congestive heart failure) Heart failure chronicity: acute Heart failure type: unspecified Qualified Code(s): I50.9 - Heart failure, unspecified
[2019-05-28] MEDS ORDERED: FUROSEMIDE 40 MG in SYRINGE 0 ML IV SCH (10:00)
--- NOTE | 2019-05-28 12:00 | Nephrology Consultation ---
Date of Consultation May 28, 2019 Assessment & Plan (1) CKD (chronic kidney disease) stage 3, GFR 30-59 ml/min: Patient with acute kidney injury on CKD. Baseline creatinine of around 2.1 but now creatinine up to 2.7. Etiology of worsening renal function likely in setting of volume overload. We will continue to monitor renal function. Avoid nephrotoxins such as contrast and NSAIDs. Monitor input output and daily BMP. (2) CHF (congestive heart failure): Patient with a recent NSTEMI now coming in with shortness of breath. Chest x-ray showed pulmonary edema. He received IV Lasix 40 mg yesterday. Recommend another 40 mg IV Lasix today. Patient can be discharged on torsemide. Monitor input output and daily weight. Patient should be on 2 g salt diet (3) HTN (hypertension): Blood pressure is slightly above target likely due to volume overload. Continue current regimen. Anticipate improvement with diuresis. History of Present Illness Attending Physician: Kamari Cowan MD History of Present Illness 59 y/o M w/ solitary kidney and baseline creatinine low 2's admitted on 05/27/2019 with shortness of breath. I have been consulted for KELLI on CKD and volume overload. Patient recently discharged on 05/26/2019 after treatment for NSTEMI and hypertensive urgency. Patient was supposed to be started on diuretics as an outpatient. He however returned with worsening shortness of breath. Chest x-ray done yesterday showed normal edema. Patient was given IV Lasix 40 mg once. He diuresed well was net -1 L. He reports improvement in his breathing today. No vomiting or diarrhea. No NSAID use. Creatinine was 2.7 yesterday and remained stable this morning. Other past medical history include DM on insulin, HTN, CAD s/p past stent, COLIN not using CPAP, CKD 3-4 w/ baseline creatinine 2.1-2.3 and w/ solitary kidney s/p 2011 L radical nephrectomy; also s/p 06/2018 malignant melanoma excision, prostatic hypertrophy, peripheral neuropathy. Allergies Allergy/AdvReac Type Severity Reaction Status Date / Time cucumber Allergy Severe reports Verified 05/27/19 09:06 rash/hives NSAIDS (Non-Steroidal AdvReac Severe to avoid Verified 05/27/19 09:06 Anti-Inflamma due to poor renal fxn oseltamivir [From Tamiflu] AdvReac Unknown Confusion Verified 05/27/19 09:06 Home Medications Home Medications Medication Instructions Recorded Confirmed Type Novolog Flexpen U-100 Insulin 0 unit SUBCUT TIDM 05/22/19 05/27/19 History Tradjenta 5 mg PO DAILY 05/22/19 05/27/19 History Tresiba FlexTouch U-200 72 unit SUBCUT HS 05/22/19 05/27/19 History Vascepa 1 g PO BID 05/22/19 05/27/19 History acetaminophen-codeine 1 tab PO UD PRN 05/22/19 05/27/19 History alprazolam [Xanax] 0.25 mg PO Q8 PRN 05/22/19 05/27/19 History aspirin 162 mg PO DAILY 05/22/19 05/27/19 History cholecalciferol (vitamin D3) 3,000 unit PO DAILY 05/22/19 05/27/19 History [Vitamin D3] colchicine [Colcrys] 0.6 mg PO DAILY PRN 05/22/19 05/27/19 History cyanocobalamin (vitamin B-12) 1,000 mcg PO DAILY 05/22/19 05/27/19 History [Vitamin B-12] duloxetine 60 mg PO DAILY 05/22/19 05/27/19 History isosorbide mononitrate 90 mg PO DAILY 05/22/19 05/27/19 History meclizine 12.5 mg PO Q8 PRN 05/22/19 05/27/19 History niacin 500 mg PO DAILY 05/22/19 05/27/19 History prasugrel [Effient] 10 mg PO DAILY 05/22/19 05/27/19 History ramipril 5 mg PO DAILY 05/22/19 05/27/19 History simvastatin 20 mg PO HS 05/22/19 05/27/19 History tamsulosin 0.4 mg PO DAILY 05/22/19 05/27/19 History carvedilol 18.75 mg PO BID 30 Days #180 tab 05/26/19 05/27/19 Rx nifedipine [Adalat CC] 30 mg PO HS 30 Days #30 tab 05/26/19 05/27/19 Rx Patient History Medical History CKD (chronic kidney disease) stage 3, GFR 30-59 ml/min Heart attack Melanoma s/p 06/2018 excision Surgical History H/O left radical nephrectomy 2011 for renal cell carcinoma History of intravascular stent placement 2008, 2009 Family History Father Coronary heart disease Brother Diabetes Social History Preferred Language: German Communication Ability: Effective Ict Help Desk Officer Required: No Beliefs That Will Affect Care: None Current Living Situation: Alone Other Information That Helps Us Care for You: No Feels Safe at Home: Yes Safety Concerns: Feels Safe At This Time Smoking Status: Never smoker Hx Alcohol Use: Yes Hx Substance Use: No Review of Systems Review of Systems: All systems reviewed & are unremarkable except as noted in HPI & below Physical Exam Physical Exam: General exam: Appears comfortable, no acute distress HEENT: Pupils are equal and reactive to light Neck: No JVD, neck is supple trachea is midline Respiratory system: Clear breath sounds bilaterally. Gastrointestinal: Abdomen is soft, non distended, non tender, bowel sounds are present CVS: Regular rate and rhythm. No murmurs, rubs or gallops Musculoskeletal: No joint or muscle tenderness Extremities: Non tender, no edema, peripheral pulses are present Neuro: Oriented, no tremors, no focal neurological deficits Skin: No rashes Results & Data Vital Signs (Past 12 Hours) Vital Signs Temp Pulse Resp BP Pulse Ox 05/28/19 07:13 37.0 C 82 18 163/75 H 98 05/28/19 03:07 36.5 C 89 16 156/73 H 98 Laboratory Results Laboratory Results - last 24 hr 05/27/19 05/27/19 05/27/19 14:05 16:11 20:06 WBC RBC Hgb Hct MCV MCH MCHC RDW Std Deviation RDW Coeff of Terell Plt Count MPV Immature Gran % (Auto) Neut % (Auto) Lymph % (Auto) [place] % (Auto) Eos % (Auto) Baso % (Auto) Immature Gran # (Auto) Neut # (Auto) Lymph # (Auto) [place] # (Auto) Eos # (Auto) Baso # (Auto) Sodium Potassium Chloride Carbon Dioxide Anion Gap BUN Creatinine Est Cr Clr Drug Dosing Est GFR ( Amer) Est GFR (Non-Af Amer) BUN/Creatinine Ratio Glucose POC Glucose 160 H 95 90 Calcium 05/28/19 05/28/19 05/28/19 05:37 05:39 05:45 WBC 12.90 H RBC 4.01 L Hgb 11.7 L Hct 36.6 L MCV 91.3 MCH 29.2 MCHC 32.0 RDW Std Deviation 44.9 RDW Coeff of [place] 13.5 Plt Count 262 MPV 9.9 Immature Gran % (Auto) 0.5 Neut % (Auto) 74.1 Lymph % (Auto) 13.6 [place] % (Auto) 9.5 Eos % (Auto) 2.1 Baso % (Auto) 0.2 Immature Gran # (Auto) 0.07 H Neut # (Auto) 9.56 H Lymph # (Auto) 1.76 [place] # (Auto) 1.22 H Eos # (Auto) 0.27 Baso # (Auto) 0.02 Sodium Potassium Chloride Carbon Dioxide Anion Gap BUN Creatinine Est Cr Clr Drug Dosing Est GFR ( Amer) Est GFR (Non-Af Amer) BUN/Creatinine Ratio Glucose POC Glucose 45 L* 45 L* Calcium 05/28/19 05/28/19 05/28/19 05:45 05:51 06:07 WBC RBC Hgb Hct MCV MCH MCHC RDW Std Deviation RDW Coeff of Terell Plt Count MPV Immature Gran % (Auto) Neut % (Auto) Lymph % (Auto) [place] % (Auto) Eos % (Auto) Baso % (Auto) Immature Gran # (Auto) Neut # (Auto) Lymph # (Auto) [place] # (Auto) Eos # (Auto) Baso # (Auto) Sodium 142 Potassium 4.2 Chloride 111 H Carbon Dioxide 23 Anion Gap 8.0 BUN 48 H Creatinine 2.66 H Est Cr Clr Drug Dosing 37.5 Est GFR ( Amer) 29.5 Est GFR (Non-Af Amer) 25.5 BUN/Creatinine Ratio 18.2 Glucose 50 L* POC Glucose 70 98 Calcium 8.6 05/28/19 05/28/19 07:14 11:16 WBC RBC Hgb Hct MCV MCH MCHC RDW Std Deviation RDW Coeff of Terell Plt Count MPV Immature Gran % (Auto) Neut % (Auto) Lymph % (Auto) [place] % (Auto) Eos % (Auto) Baso % (Auto) Immature Gran # (Auto) Neut # (Auto) Lymph # (Auto) [place] # (Auto) Eos # (Auto) Baso # (Auto) Sodium Potassium Chloride Carbon Dioxide Anion Gap BUN Creatinine Est Cr Clr Drug Dosing Est GFR ( Amer) Est GFR (Non-Af Amer) BUN/Creatinine Ratio Glucose POC Glucose 148 H 240 H Calcium (1) CHF (congestive heart failure) Heart failure chronicity: acute Heart failure type: unspecified Qualified Code(s): I50.9 - Heart failure, unspecified (2) HTN (hypertension) Hypertension type: unspecified Qualified Code(s): I10 - Essential (primary) hypertension
--- NOTE | 2019-05-28 13:13 | Hospitalist Progress Note ---
Date of Service May 28, 2019 Assessment & Plan (1) CHF (congestive heart failure): ACUTE ON CHRONIC CONGESTIVE HEART FAILURE EXACERBATION, SYSTOLIC AND DIASTOLIC TYPE EF 45 %, Grade 2 Diastolic CHF -Lasix 40mg IV BID ordered - crea improved to 2.6 - Cardio and Nephro on board ACUTE RENAL FAILURE ON CKD 3, SOLITARY KIDNEY History of renal cell carcinoma(clear cell) status post nephrectomy CKD stage III -baseline 2.2 now 2.7--> 2.6 - monitor while on Lasix DM 2 (+) hypoglycemia this AM Lantus decreased continue NSS Pharmacy Glycemic Control consulted HYPERTENSION stable today continue: Nifedipine xl 30 mg at bedtime Ramipril 5 mg daily Imdur 90 mg daily flomax 0.4 mg daily. RECENT NSTEMI (non-ST elevated myocardial infarction): in the setting of HTN urgency Cardiac cath : LM -luminal irregularities LAD -20 to 30% ostial, diffuse 50% mid at takeoff of first septal extending past takeoff of second diagonal. 99% earlydistal and 99% stenosis as wraps around apex. Bifurcating first septal with high-grade ostial stenosis. Moderate caliber second diagonal with luminal irregularities and LAUREN-3 flow. Circumflex -moderate caliber vessel, 20 to 30% ostial. Very small OM 2 occluded with partial filling distally via left to left collaterals. Very small left PLB with 95% stenosis. RCA -dominant, patent proximal to mid stents, latemid luminal irregularities, 30 to 40% distal stenosis prior to takeoff of right PDA. LVEDP -30-elevated Summary: 1. Severe single vessel chronic coronary artery disease -50% diffuse mid LAD, sequential 99% distal LAD lesions 2. Elevated intracardiac filling pressure --- resolved with improvement in blood pressure continue Aspirin, Effient HISTORY OF MELANOMA IN BACK Status post wide margin resection No recent recurrence as per patient CODE STATUS: Full code DVT prophylaxis: Subcu heparin Disposition: pending anticipate d/c home when medically stable Subjective ff up for CHF exacerbation seen resting in bed, in better spirits smiling not in distress states he feels better today no dyspnea when ambulating in the room, no chest pain no other symptoms Review of Systems Review of Systems: All systems reviewed & are unremarkable except as noted in HPI & below Physical Exam Physical Exam: General- oriented x 3, not in distress, speaks in sentences with no effort or accessory muscle use Eyes- anicteric Neck- no JVD Lungs- clear breath sounds bilaterally, no wheezing no crackles noted Heart- normal rate, regular rhythm; no murmurs Abdomen- normal bowel sounds, nondistended, soft, nontender Extremities- no pretibial edema, no calf tenderness Neuro- alert, oriented x 3; no gross focal neurologic deficits Skin- warm & dry Results & Data Vital Signs (Past 12 Hours) Vital Signs Temp Pulse Resp BP BP Pulse Ox 05/28/19 11:10 36.7 C 76 16 116/74 97 05/28/19 07:13 37.0 C 82 18 163/75 H 98 05/28/19 03:07 36.5 C 89 16 156/73 H 98 Laboratory Results Laboratory Results - last 24 hr 05/27/19 05/27/19 05/28/19 16:11 20:06 05:37 WBC RBC Hgb Hct MCV MCH MCHC RDW Std Deviation RDW Coeff of Terell Plt Count MPV Immature Gran % (Auto) Neut % (Auto) Lymph % (Auto) [place] % (Auto) Eos % (Auto) Baso % (Auto) Immature Gran # (Auto) Neut # (Auto) Lymph # (Auto) [place] # (Auto) Eos # (Auto) Baso # (Auto) Sodium Potassium Chloride Carbon Dioxide Anion Gap BUN Creatinine Est Cr Clr Drug Dosing Est GFR ( Amer) Est GFR (Non-Af Amer) BUN/Creatinine Ratio Glucose POC Glucose 95 90 45 L* Calcium 05/28/19 05/28/19 05/28/19 05:39 05:45 05:45 WBC 12.90 H RBC 4.01 L Hgb 11.7 L Hct 36.6 L MCV 91.3 MCH 29.2 MCHC 32.0 RDW Std Deviation 44.9 RDW Coeff of Terell 13.5 Plt Count 262 MPV 9.9 Immature Gran % (Auto) 0.5 Neut % (Auto) 74.1 Lymph % (Auto) 13.6 [place] % (Auto) 9.5 Eos % (Auto) 2.1 Baso % (Auto) 0.2 Immature Gran # (Auto) 0.07 H Neut # (Auto) 9.56 H Lymph # (Auto) 1.76 [place] # (Auto) 1.22 H Eos # (Auto) 0.27 Baso # (Auto) 0.02 Sodium 142 Potassium 4.2 Chloride 111 H Carbon Dioxide 23 Anion Gap 8.0 BUN 48 H Creatinine 2.66 H Est Cr Clr Drug Dosing 37.5 Est GFR ( Amer) 29.5 Est GFR (Non-Af Amer) 25.5 BUN/Creatinine Ratio 18.2 Glucose 50 L* POC Glucose 45 L* Calcium 8.6 05/28/19 05/28/19 05/28/19 05:51 06:07 07:14 WBC RBC Hgb Hct MCV MCH MCHC RDW Std Deviation RDW Coeff of Terell Plt Count MPV Immature Gran % (Auto) Neut % (Auto) Lymph % (Auto) [place] % (Auto) Eos % (Auto) Baso % (Auto) Immature Gran # (Auto) Neut # (Auto) Lymph # (Auto) [place] # (Auto) Eos # (Auto) Baso # (Auto) Sodium Potassium Chloride Carbon Dioxide Anion Gap BUN Creatinine Est Cr Clr Drug Dosing Est GFR ( Amer) Est GFR (Non-Af Amer) BUN/Creatinine Ratio Glucose POC Glucose 70 98 148 H Calcium 05/28/19 11:16 WBC RBC Hgb Hct MCV MCH MCHC RDW Std Deviation RDW Coeff of Terell Plt Count MPV Immature Gran % (Auto) Neut % (Auto) Lymph % (Auto) [place] % (Auto) Eos % (Auto) Baso % (Auto) Immature Gran # (Auto) Neut # (Auto) Lymph # (Auto) [place] # (Auto) Eos # (Auto) Baso # (Auto) Sodium Potassium Chloride Carbon Dioxide Anion Gap BUN Creatinine Est Cr Clr Drug Dosing Est GFR ( Amer) Est GFR (Non-Af Amer) BUN/Creatinine Ratio Glucose POC Glucose 240 H Calcium (1) CHF (congestive heart failure) Heart failure chronicity: acute Heart failure type: unspecified Qualified Code(s): I50.9 - Heart failure, unspecified
[2019-05-28] MEDS ORDERED: Nursing to Pharmacy Communication ONE (17:35)
[2019-05-28] MEDS: FUROSEMIDE 40 MG in SYRINGE 0 ML IV SCH (17:47)
[2019-05-28] MEDS: SIMVASTATIN 20 MG TAB PO SCH (19:34)
[2019-05-28] MEDS: NIFEdipine EXTENDED REL 30 MG TABCR PO SCH (19:34)
[2019-05-28] MEDS: PRASugrel TAB 10 MG TAB PO SCH (19:35)
[2019-05-28] MEDS: HEPARIN SOD 5,000 UNIT/0.5 ML VIAL SQ SCH (19:35)
[2019-05-28] MEDS ORDERED: INSULIN GLARGINE SOLOSTAR 100 UNITS/ML 3 ML PEN SC SCH (21:00)
[2019-05-28] MEDS: INSULIN DEGLUDEC 200 UNIT/ML SQ SCH (22:11)
[2019-05-29 06:15] LABS: Basophils # (auto) 0.02 K/uL (0-0.2); Basophils % (auto) 0.2 %; Eosinophils # (auto) 0.29 K/uL (0-0.5); Eosinophils % (auto) 2.2 %; Hematocrit (blood only) 34.5 % (42-52); Hemoglobin 11.3 g/dL (14.0-18.0); Immature Granulocytes # (auto) 0.06 K/uL (0.00-0.02); Immature Granulocytes % (auto) 0.5 %; Lymphocytes # (auto) 2.12 K/uL (1.2-3.4); Lymphocytes % (auto) 16.2 %; Mean Corpuscular Hemoglobin 29.6 pg (25-34); Mean Corpuscular Hgb Conc 32.8 g/dL (32-36); Mean Corpuscular Volume 90.3 fL (80-100); Mean Platelet Volume 9.6 fL (7.4-10.4); Monocytes # (auto) 1.15 K/uL (0.11-0.59); Monocytes % (auto) 8.8 %; Neutrophils # (auto) 9.43 K/uL (1.4-6.5); Neutrophils % (auto) 72.1 %; Platelet Count 266 K/uL (130-400); RDW Coefficient of Variation 13.5 % (11.5-14.5); RDW Standard Deviation 44.7 fL (36.4-46.3); Red Blood Count 3.82 M/uL (4.7-6.1); White Blood Count 13.07 K/uL (4.8-10.8)
[2019-05-29] MEDS: HEPARIN SOD 5,000 UNIT/0.5 ML VIAL SQ SCH ×3 (06:33→20:30)
[2019-05-29 06:47] LABS: BUN Creatinine Ratio 19.3 (10-20); Calcium 8.4 mg/dl (8.5-10.1); Creatinine Clr Calc Pharmacy 33.8 ml/min; Est GFR (African American) 26.5; Est GFR (Non-African American) 22.9; Potassium 4.3 mmol/L (3.5-5.1)
[2019-05-29] MEDS: CHOLECALCIFEROL 1,000 UNITS TAB PO SCH (08:04)
[2019-05-29] MEDS: CYANOCOBALAMIN 500 MCG TABLET (VITAMIN B-12) PO SCH (08:04)
[2019-05-29] MEDS: FUROSEMIDE 40 MG in SYRINGE 0 ML IV SCH (08:04)
[2019-05-29] MEDS: ISOSORBIDE MONO EXTENDED REL 30 MG TABCR PO SCH (08:05)
[2019-05-29] MEDS: DULOXETINE HCL 60 MG CAP PO SCH (08:05)
[2019-05-29] MEDS: ASPIRIN 81 MG ECTAB PO SCH (08:05)
[2019-05-29] MEDS: TAMSULOSIN HCL 0.4 MG CAP PO SCH (08:05)
[2019-05-29] MEDS: CARVEDILOL 6.25 MG TAB PO SCH (08:05)
[2019-05-29] MEDS: NIACIN EXTENDED REL 500 MG TABCR PO SCH (08:06)
[2019-05-29] MEDS: INSULIN ASPART 100 UNITS/ML 3 ML PEN SC SCH ×4 (08:08→20:28)
--- NOTE | 2019-05-29 08:58 | Nephrology Progress Note ---
Date of Service May 29, 2019 Assessment & Plan (1) CKD (chronic kidney disease) stage 3, GFR 30-59 ml/min: Patient with acute kidney injury on CKD. Baseline creatinine 2.1-2.3 but now creatinine up to 2.9. worse w/ volume overload/diastolic HF; but also with poor tolerance of diuretic. admission wt 113.7 on 05/27 standing scale; today 107.5 -lowered lasix dose to 20 mg IV bid -cont strict I/O and daily standing wt - Avoid nephrotoxins such as contrast and NSAIDs. -lowered ASA dose to 81 mg daily -daily BMP. (2) CHF (congestive heart failure): Patient with a recent NSTEMI now coming in with shortness of breath. Chest x-ray showed pulmonary edema. Down as of today just over 6 kg since admission -lowered lasix from 40 mg bid to 20 mg bid IV -Monitor input output and daily standing weight. -cont <2gm Na diet and 1.5L FR (3) HTN (hypertension): Blood pressure at goal past 24 hrs. continue bid lasix (lower dose), nifedipine ER 30 hs w/ hold parameters -will increase coreg to 25 mg bid >>>consider lower imdur dose -anticipate d/c on very low dose torsemide but need to stabilize renal function first; plan to resume ACEI as OP Subjective seen on rounds this am at 0940 w/ loved ones at bedside; states he's breathing much better now; eager/anxious for d/c. no voiding concerns, no CP, no LOONEY Review of Systems Review of Systems: All systems reviewed & are unremarkable except as noted in HPI & below Physical Exam Constitutional: well developed, well nourished, + obese and cooperative; no acute distress Eyes: EOM intact bilaterally ENMT: Ears: no external ear abnormality Nose: no external nose abnormality Mouth: + dry oral mucous membranes Neck: no nuchal rigidity Respiratory: + labored breathing (very slightly increased wob) and + paradoxical thoraco-abdominal movement Auscultation: + diminished lung sounds Cardiovascular: RRR, no murmur, no edema Gastrointestinal (Abdomen): Inspection/Auscultation: normal bowel sounds Percussion/Palpation: abdomen soft; abdomen nontender Musculoskeletal: Extremities: strength 5/5 throughout Skin: no rashes, warm and dry Neurologic: huffman, fluent speech, no tremor Psychiatric: Orientation: alert and oriented x 3 Speech: normal rate/rhythm/volume of speech Affect: + anxious affect Insight: + limited insight Results & Data Vital Signs (Past 12 Hours) Vital Signs Temp Pulse Pulse Resp BP BP Pulse Ox 05/29/19 07:51 75 05/29/19 07:40 36.6 C 84 18 138/76 97 05/29/19 03:55 36.5 C 85 16 139/66 97 05/28/19 23:31 36.5 C 72 16 131/58 L 96 Pulse Ox 05/29/19 07:51 94 05/29/19 07:40 05/29/19 03:55 05/28/19 23:31 Laboratory Results 05/29/19 05:52 05/29/19 05:[address] reviewed (1) CHF (congestive heart failure) Heart failure chronicity: acute Heart failure type: unspecified Qualified Code(s): I50.9 - Heart failure, unspecified (2) HTN (hypertension) Hypertension type: unspecified Qualified Code(s): I10 - Essential (primary) hypertension
[2019-05-29] MEDS ORDERED: CARVEDILOL 6.25 MG TAB PO ONE (09:30)
--- NOTE | 2019-05-29 09:37 | Pharmacy Report ---
Pharmacy Glycemic Short Note 2 - Date of Service May 29, 2019 - Glycemic Short BSG Results (Last 24 hours): 05/28/19 05/28/19 05/28/19 11:16 16:28 20:15 Glucose POC Glucose 240 H 95 129 H 05/29/19 05/29/19 05/29/19 02:19 05:52 06:46 Glucose 127 H POC Glucose 72 118 H OUTPATIENT ANTIDIABETIC REGIMEN: * Tresiba 72 units SC qHS * Novolog with meals (14-14-18 units) + sliding scale * Tradjenta 5 mg daily * A1c = 8 % on 05/22/19 Risk Factors for Insulin Resistance: * Diet: T2DM ASSESSMENT: * Basal insulin * Patient had a hypoglycemic episode yesterday AM and Tresiba was decreased to 15 units last night in response. * Patient did not have a hypoglycemic event overnight last night, but BSG went as low as 72 mg/dL which was a trend down from HS check of 129 mg/dL when patient did not receive any bolus insulin at HS and thus trend down can be attributed to basal insulin * Suspect that the higher dose of 20 units from 05/27 HS may have had some residual effect therefore will not adjust dose tonight significantly, but will adjust BSG parameters * Bolus insulin * BSG rapidly trended down from lunch to dinner yesterday (240 to 95 mg/dL). * Although no post-prandial hypoglycemia noted, will slightly loosen CHO ratio to prevent post-prandial hypoglycemia, especially as patient is at higher risk for hypoglycemia at this time 2nd critically low BSG yesterday AM likely indicating depletion of hepatic glycogen stores PLAN FOR INPATIENT GLYCEMIC CONTROL: * Hold outpatient oral diabetes medications * Basal insulin: Lantus qHS based on BSG * 10 units for BSG less than 120 mg/dL * 15 units for BSG 120 mg/dL or above * Bolus insulin * NovoLog per scale ACHS or Q6hrs while NPO * Goal Range: Low 110 mg/dL - High 150 mg/dL * Correction Factor: 30 mg/dL/unit * Nutritional / Prandial insulin per carb ratio of 1 unit per 11 grams CHO consumed PLAN FOR DISCHARGE: * see 05/27 note
--- NOTE | 2019-05-29 14:03 | Cardiology Progress Note ---
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 Nephrology input noted and appreciated. Furosemide dose reduced to 20 mg IV twice daily given increasing creatinine to 2.9, baseline has been in the range of 2.2 prior to his most recent admission. Agree with increasing carvedilol to 25 mg twice daily. Monitor closely. Subjective CC: follow up shortness of breath Subjective: SOB better. Denies chest pain. Review of Systems Review of Systems: All systems reviewed & are unremarkable except as noted in HPI & below Physical Exam Physical Exam: Temp Pulse Resp BP Pulse Ox 36.5 C 75 18 123/66 96 05/29/19 11:20 05/29/19 11:20 05/29/19 11:20 05/29/19 11:20 05/29/19 11:20 Constitutional: WD/WN, vitals as above Respiratory: normal respiratory effort, lungs clear to auscultation Cardiovascular: RRR, no murmur, no edema Gastrointestinal (Abdomen): normal bowel sounds, soft, nontender, no hepatosplenomegaly Neurologic: PERRL, EOMI, accommodation nl, no face palsy, no dysarthria Results & Data Vital Signs (Past 12 Hours) Vital Signs Temp Pulse Pulse Resp BP BP Pulse Ox 05/29/19 11:20 36.5 C 75 18 123/66 96 05/29/19 07:51 75 05/29/19 07:40 36.6 C 84 18 138/76 97 05/29/19 03:55 36.5 C 85 16 139/66 97 Pulse Ox 05/29/19 11:20 05/29/19 07:51 94 05/29/19 07:40 05/29/19 03:55 Laboratory Results CBC 05/29/19 Range/Units 05:52 WBC 13.07 H (4.8-10.8) K/uL RBC 3.82 L (4.7-6.1) M/uL Hgb 11.3 L (14.0-18.0) g/dL Hct 34.5 L (42-52) % Plt Count 266 (130-400) K/uL Neut # (Auto) 9.43 H (1.4-6.5) K/uL Lymph # (Auto) 2.12 (1.2-3.4) K/uL Andrews # (Auto) 1.15 H (0.11-0.59) K/uL Eos # (Auto) 0.29 (0-0.5) K/uL Baso # (Auto) 0.02 (0-0.2) K/uL Comprehensive Metabolic Panel 05/29/19 Range/Units 05:52 Sodium 140 (136-145) mmol/L Potassium 4.3 (3.5-5.1) mmol/L Chloride 105 (98-107) mmol/L Carbon Dioxide 27 (21-32) mmol/L BUN 56 H (7-18) mg/dl Creatinine 2.91 H (0.6-1.4) mg/dl Glucose 127 H (70-99) mg/dl Calcium 8.4 L (8.5-10.1) mg/dl Intake and Output 05/28/19 05/29/19 05/29/19 22:59 06:59 14:59 Intake Total 250 / 500 Output Total 450 / 1550 Balance 250 / -1050 -450 / -1050 Intake: Oral 250 / 500 Output: Urine 450 / 1550 Other: Weight 107.5 kg 107.5 kg Patient Weight 05/30/19 06:59 Weight 107.5 kg Medications Administered Current Inpatient Medications Acetaminophen/Codeine Phosphate (Tylenol W/Codeine #3) 1 tab PO Q6H PRN PRN Reason: Pain Stop: 06/26/19 14:27 Alprazolam (Xanax) 0.25 mg PO Q8 PRN PRN Reason: Anxiety Stop: 06/26/19 14:04 Aspirin (Ecotrin Ectab) 81 mg PO DAILY ANNE Stop: 06/29/19 08:59 Carvedilol (Coreg) 25 mg PO BID ANNE Stop: 06/28/19 09:14 Cyanocobalamin (Vitamin B-12) 1,000 mcg PO DAILY ANNE Stop: 06/27/19 08:59 Last Admin: 05/29/19 08:04 Dose: 1,000 mcg Documented by: Dextrose (Dextrose 50%) 25 - 50 ml IV UD PRN; Protocol PRN Reason: Hypoglycemia Protocol Stop: 06/26/19 14:59 Duloxetine HCl (Cymbalta) 60 mg PO DAILY ANNE Stop: 06/27/19 08:59 Last Admin: 05/29/19 08:05 Dose: 60 mg Documented by: Glucagon (Glucagen) 1 mg SQ UD PRN; Protocol PRN Reason: Hypoglycemia Protocol Stop: 06/26/19 14:59 Glucose (Glucose 40%) 15 - 30 gm PO UD PRN; Protocol PRN Reason: Hypoglycemia Protocol Stop: 06/26/19 14:59 Glucose (Dex4 Glucose) 4 - 8 tabs PO UD PRN; Protocol PRN Reason: Hypoglycemia Protocol Stop: 06/26/19 14:59 Heparin Sodium (Porcine) (Heparin Sodium (Porcine)) 5,000 units SQ Q8 ANNE Stop: 06/27/19 21:59 Last Admin: 05/29/19 06:33 Dose: 5,000 units Documented by: Furosemide 20 mg/ Syringe 2 mls @ 4 mls/min IV BIDM [facility] Stop: 06/28/19 16:59 Insulin Aspart (Novolog Flexpen) 0 units SC ACHS [facility]; Protocol Stop: 06/26/19 16:29 Last Admin: 05/29/19 11:55 Dose: 4 units Documented by: Insulin Degludec (Tresiba Flextouch U-200) 0 units SQ HS [facility]; Protocol Stop: 06/27/19 20:59 Last Admin: 05/28/19 22:11 Dose: 15 units Documented by: Isosorbide Mononitrate (Imdur Extended Rel) 90 mg PO DAILY [facility] Stop: 06/27/19 08:59 Last Admin: 05/29/19 08:05 Dose: 90 mg Documented by: Meclizine HCl (Antivert) 12.5 mg PO Q8 PRN PRN Reason: Dizziness Stop: 06/26/19 14:04 Miscellaneous (Order Awaiting Action) 1 ea N/A QS [facility] Stop: 06/26/19 15:59 Last Admin: 05/29/19 08:06 Dose: Not Given Documented by: Miscellaneous (Carbohydrates For Hypoglycemia) 15 - 30 gm PO UD PRN PRN Reason: Hypoglycemia Treatment Stop: 06/26/19 14:59 Last Admin: 05/28/19 05:41 Dose: 30 gm Documented by: Miscellaneous Information (Consult Glycemic Management Pharmacy) 1 ea N/A UD PRN PRN Reason: Consult Stop: 06/26/19 14:35 Niacin (Niaspan Extended Rel) 500 mg PO DAILY ANNE Stop: 06/27/19 08:59 Last Admin: 05/29/19 08:06 Dose: 500 mg Documented by: Nifedipine (Procardia Xl) 30 mg PO HS ANNE Stop: 06/26/19 20:59 Last Admin: 05/28/19 19:34 Dose: 30 mg Documented by: Prasugrel (Effient) 10 mg PO HS ANNE Stop: 06/26/19 20:59 Last Admin: 05/28/19 19:35 Dose: 10 mg Documented by: Simvastatin (Zocor) 20 mg PO HS ANNE Stop: 06/26/19 20:59 Last Admin: 05/28/19 19:34 Dose: 20 mg Documented by: Tamsulosin HCl (Flomax) 0.4 mg PO DAILY ANNE Stop: 06/27/19 08:59 Last Admin: 05/29/19 08:05 Dose: 0.4 mg Documented by: Vitamin D (Vitamin D3) 3,000 units PO DAILY ANNE Stop: 06/27/19 08:59 Last Admin: 05/29/19 08:04 Dose: 3,000 units Documented by:
--- NOTE | 2019-05-29 16:29 | Hospitalist Progress Note ---
Date of Service May 29, 2019 Assessment & Plan (1) CHF (congestive heart failure): ACUTE ON CHRONIC CONGESTIVE HEART FAILURE EXACERBATION, SYSTOLIC AND DIASTOLIC TYPE EF 45 %, Grade 2 Diastolic CHF -Lasix 40mg IV BID ordered Diuresing well - crea has increased now at 2.9 Lasix increased today to 20 mg IV twice daily Monitor creatinine - Cardio and Nephro on board ACUTE RENAL FAILURE ON CKD 3, SOLITARY KIDNEY History of renal cell carcinoma(clear cell) status post nephrectomy CKD stage III -baseline 2.2 now 2.7--> 2.9 - monitor while on Lasix DM 2 (+) hypoglycemia 05/28/2019 Lantus transition to Tresiba Blood glucose within goal range today Pharmacy Glycemic Control consulted HYPERTENSION Coreg increased to 25 mg twice daily continue: Nifedipine xl 30 mg at bedtime Ramipril 5 mg daily Imdur 90 mg daily flomax 0.4 mg daily. RECENT NSTEMI (non-ST elevated myocardial infarction): in the setting of HTN urgency Cardiac cath : LM -luminal irregularities LAD -20 to 30% ostial, diffuse 50% mid at takeoff of first septal extending past takeoff of second diagonal. 99% earlydistal and 99% stenosis as wraps around apex. Bifurcating first septal with high-grade ostial stenosis. Moderate caliber second diagonal with luminal irregularities and LAUREN-3 flow. Circumflex -moderate caliber vessel, 20 to 30% ostial. Very small OM 2 occluded with partial filling distally via left to left collaterals. Very small left PLB with 95% stenosis. RCA -dominant, patent proximal to mid stents, latemid luminal irregularities, 30 to 40% distal stenosis prior to takeoff of right PDA. LVEDP -30-elevated Summary: 1. Severe single vessel chronic coronary artery disease -50% diffuse mid LAD, sequential 99% distal LAD lesions 2. Elevated intracardiac filling pressure --- resolved with improvement in blood pressure continue Aspirin, Effient HISTORY OF MELANOMA IN BACK Status post wide margin resection No recent recurrence as per patient CODE STATUS: Full code DVT prophylaxis: Subcu heparin Disposition: pending anticipate d/c home when medically stable Subjective Follow-up for volume overload, acute renal failure and CKD Seen resting in bed, in good spirits States he feels fine overall Breathing on exertion continues to improve Denies chest pain, dizziness, palpitations No other symptoms Review of Systems Review of Systems: All systems reviewed & are unremarkable except as noted in HPI & below Physical Exam Physical Exam: General- oriented x 3, not in distress, speaks in sentences with no effort or accessory muscle use Eyes- anicteric Neck- no JVD Lungs- clear breath sounds bilaterally, no crackles, no wheezing bilaterally Heart- normal rate, regular rhythm; no murmurs Abdomen- normal bowel sounds, nondistended, soft, nontender Extremities-trace pretibial edema, no calf tenderness Neuro- alert, oriented x 3; no gross focal neurologic deficits Skin- warm & dry Results & Data Vital Signs (Past 12 Hours) Vital Signs Temp Pulse Pulse Resp BP BP Pulse Ox 05/29/19 15:07 36.7 C 80 18 161/77 H 96 05/29/19 11:20 36.5 C 75 18 123/66 96 05/29/19 07:51 75 05/29/19 07:40 36.6 C 84 18 138/76 97 Pulse Ox 05/29/19 15:07 05/29/19 11:20 05/29/19 07:51 94 05/29/19 07:40 Laboratory Results Laboratory Results - last 24 hr 05/28/19 05/28/19 05/29/19 16:28 20:15 02:19 WBC RBC Hgb Hct MCV MCH MCHC RDW Std Deviation RDW Coeff of Terell Plt Count MPV Immature Gran % (Auto) Neut % (Auto) Lymph % (Auto) Stewart % (Auto) Eos % (Auto) Baso % (Auto) Immature Gran # (Auto) Neut # (Auto) Lymph # (Auto) Stewart # (Auto) Eos # (Auto) Baso # (Auto) Sodium Potassium Chloride Carbon Dioxide Anion Gap BUN Creatinine Est Cr Clr Drug Dosing Est GFR ( Amer) Est GFR (Non-Af Amer) BUN/Creatinine Ratio Glucose POC Glucose 95 129 H 72 Calcium 05/29/19 05/29/19 05/29/19 05:52 05:52 06:46 WBC 13.07 H RBC 3.82 L Hgb 11.3 L Hct 34.5 L MCV 90.3 MCH 29.6 MCHC 32.8 RDW Std Deviation 44.7 RDW Coeff of Terell 13.5 Plt Count 266 MPV 9.6 Immature Gran % (Auto) 0.5 Neut % (Auto) 72.1 Lymph % (Auto) 16.2 Stewart % (Auto) 8.8 Eos % (Auto) 2.2 Baso % (Auto) 0.2 Immature Gran # (Auto) 0.06 H Neut # (Auto) 9.43 H Lymph # (Auto) 2.12 Stewart # (Auto) 1.15 H Eos # (Auto) 0.29 Baso # (Auto) 0.02 Sodium 140 Potassium 4.3 Chloride 105 Carbon Dioxide 27 Anion Gap 8.0 BUN 56 H Creatinine 2.91 H Est Cr Clr Drug Dosing 33.8 Est GFR ( Amer) 26.5 Est GFR (Non-Af Amer) 22.9 BUN/Creatinine Ratio 19.3 Glucose 127 H POC Glucose 118 H Calcium 8.4 L 05/29/19 05/29/19 11:16 16:04 WBC RBC Hgb Hct MCV MCH MCHC RDW Std Deviation RDW Coeff of Terell Plt Count MPV Immature Gran % (Auto) Neut % (Auto) Lymph % (Auto) Stewart % (Auto) Eos % (Auto) Baso % (Auto) Immature Gran # (Auto) Neut # (Auto) Lymph # (Auto) Stewart # (Auto) Eos # (Auto) Baso # (Auto) Sodium Potassium Chloride Carbon Dioxide Anion Gap BUN Creatinine Est Cr Clr Drug Dosing Est GFR ( Amer) Est GFR (Non-Af Amer) BUN/Creatinine Ratio Glucose POC Glucose 120 H 130 H Calcium (1) CHF (congestive heart failure) Heart failure chronicity: acute Heart failure type: unspecified Qualified Code(s): I50.9 - Heart failure, unspecified
[2019-05-29] MEDS ORDERED: FUROSEMIDE 20 MG in SYRINGE 0 ML IV SCH (17:00)
[2019-05-29] MEDS: INSULIN DEGLUDEC 200 UNIT/ML SQ SCH (20:28)
[2019-05-29] MEDS: NIFEdipine EXTENDED REL 30 MG TABCR PO SCH (20:33)
[2019-05-29] MEDS: SIMVASTATIN 20 MG TAB PO SCH (20:34)
[2019-05-29] MEDS: PRASugrel TAB 10 MG TAB PO SCH (20:34)
[2019-05-29] MEDS: CARVEDILOL 25 MG TAB PO SCH (20:34)
[2019-05-30 06:09] LABS: Basophils # (auto) 0.04 K/uL (0-0.2); Basophils % (auto) 0.4 %; Eosinophils # (auto) 0.26 K/uL (0-0.5); Eosinophils % (auto) 2.3 %; Hematocrit (blood only) 34.5 % (42-52); Hemoglobin 11.2 g/dL (14.0-18.0); Immature Granulocytes # (auto) 0.08 K/uL (0.00-0.02); Immature Granulocytes % (auto) 0.7 %; Lymphocytes # (auto) 2.12 K/uL (1.2-3.4); Lymphocytes % (auto) 18.8 %; Mean Corpuscular Hemoglobin 29.5 pg (25-34); Mean Corpuscular Hgb Conc 32.5 g/dL (32-36); Mean Corpuscular Volume 90.8 fL (80-100); Mean Platelet Volume 9.8 fL (7.4-10.4); Monocytes # (auto) 1.17 K/uL (0.11-0.59); Monocytes % (auto) 10.4 %; Neutrophils # (auto) 7.62 K/uL (1.4-6.5); Neutrophils % (auto) 67.4 %; Platelet Count 235 K/uL (130-400); RDW Coefficient of Variation 13.3 % (11.5-14.5); RDW Standard Deviation 44.2 fL (36.4-46.3); White Blood Count 11.29 K/uL (4.8-10.8)
[2019-05-30] MEDS: HEPARIN SOD 5,000 UNIT/0.5 ML VIAL SQ SCH ×3 (06:29→20:16)
[2019-05-30 06:46] LABS: BUN Creatinine Ratio 21.2 (10-20); Calcium 8.2 mg/dl (8.5-10.1); Creatinine Clr Calc Pharmacy 34.1 ml/min; Est GFR (African American) 27.1; Est GFR (Non-African American) 23.3; Potassium 4.1 mmol/L (3.5-5.1)
--- NOTE | 2019-05-30 07:49 | Nephrology Progress Note ---
Date of Service May 30, 2019 Assessment & Plan (1) CKD (chronic kidney disease) stage 3, GFR 30-59 ml/min: Patient with acute kidney injury on CKD. Baseline creatinine 2.1-2.3 but now creatinine plateau'd at 2.9. worse w/ volume overload/diastolic HF; but also with poor tolerance of diuretic. admission wt 113.7 on 05/27 standing scale; today 105.5 -lowered lasix dose to 20 mg IV once today -cont strict I/O and daily standing wt - Avoid nephrotoxins such as contrast and NSAIDs. -lowered ASA dose to 81 mg daily -daily BMP. (2) CHF (congestive heart failure): Patient with a recent NSTEMI now coming in with shortness of breath. Chest x-ray showed pulmonary edema. Down as of today just over 8 kg since admission -lowered lasix from 40 mg bid to 20 mg IV once this afternoon -Monitor input output and daily standing weight. -cont <2gm Na diet and 1.5L FR (3) HTN (hypertension): Blood pressure at goal past 24 hrs. continue as above lasix (lower dose), nifedipine ER 30 hs w/ hold parameters -cont increased coreg to 25 mg bid -anticipate d/c on very low dose torsemide but need to stabilize renal function first; plan to resume ACEI as OP Subjective seen on rounds late this afternoon; ambulating; no sob, no chest pain, no orthostatic sx; as anxious as ever for d/c; no voiding c/o, no edema Review of Systems Review of Systems: All systems reviewed & are unremarkable except as noted in HPI & below Physical Exam Constitutional: well developed, well nourished, + obese and cooperative; no acute distress on RA in bed Eyes: EOM intact bilaterally ENMT: Ears: no external ear abnormality Nose: no external nose abnormality Mouth: + dry oral mucous membranes Neck: no nuchal rigidity Respiratory: Auscultation: + diminished lung sounds Cardiovascular: RRR, no murmur, no edema Gastrointestinal (Abdomen): Inspection/Auscultation: normal bowel sounds Percussion/Palpation: abdomen soft; abdomen nontender Musculoskeletal: Extremities: strength 5/5 throughout Skin: no rashes, warm and dry Psychiatric: Orientation: alert and oriented x 3 Speech: normal rate/rhythm/volume of speech Affect: + anxious affect Insight: + limited insight Results & Data Vital Signs (Past 12 Hours) Vital Signs Temp Pulse Pulse Resp BP BP Pulse Ox 05/30/19 07:19 36.6 C 72 19 124/78 95 05/30/19 03:52 36.5 C 73 16 132/71 94 05/29/19 23:03 36.6 C 70 18 140/80 96 Laboratory Results 05/30/19 05:46 05/30/19 05:46 (1) CHF (congestive heart failure) Heart failure chronicity: acute Heart failure type: unspecified Qualified Code(s): I50.9 - Heart failure, unspecified (2) HTN (hypertension) Hypertension type: unspecified Qualified Code(s): I10 - Essential (primary) hypertension
[2019-05-30] MEDS: CARVEDILOL 25 MG TAB PO SCH ×2 (08:20→20:15)
[2019-05-30] MEDS: OMEGA-3 (PURIFIED FISH OIL) 1 GM CAP PO SCH (08:20)
[2019-05-30] MEDS: TAMSULOSIN HCL 0.4 MG CAP PO SCH (08:20)
[2019-05-30] MEDS: CHOLECALCIFEROL 1,000 UNITS TAB PO SCH (08:21)
[2019-05-30] MEDS: ISOSORBIDE MONO EXTENDED REL 30 MG TABCR PO SCH (08:21)
[2019-05-30] MEDS: CYANOCOBALAMIN 500 MCG TABLET (VITAMIN B-12) PO SCH (08:21)
[2019-05-30] MEDS: DULOXETINE HCL 60 MG CAP PO SCH (08:21)
[2019-05-30] MEDS: ASPIRIN 81 MG ECTAB PO SCH (08:22)
[2019-05-30] MEDS: INSULIN ASPART 100 UNITS/ML 3 ML PEN SC SCH ×4 (08:24→20:20)
[2019-05-30] MEDS: NIACIN EXTENDED REL 500 MG TABCR PO SCH (09:15)
--- NOTE | 2019-05-30 11:00 | Pharmacy Report ---
Pharmacy Glycemic Short Note 2 - Date of Service May 30, 2019 - Glycemic Short BSG Results (Last 24 hours): 05/29/19 05/29/19 05/29/19 11:16 16:04 20:16 Glucose POC Glucose 120 H 130 H 178 H 05/30/19 05/30/19 05:46 07:24 Glucose 91 POC Glucose 103 H OUTPATIENT ANTIDIABETIC REGIMEN: * Tresiba 72 units SC qHS * Novolog with meals (14-14-18 units) + sliding scale * Tradjenta 5 mg daily * A1c = 8 % on 05/22/19 Risk Factors for Insulin Resistance: * Diet: T2DM ASSESSMENT: * Basal insulin * AM fasting BSG in goal range at 103 mg/dL. * No change needed * Bolus insulin * One BSG above goal range yesterday, but will not make changes for now PLAN FOR INPATIENT GLYCEMIC CONTROL: * Hold outpatient oral diabetes medications * Basal insulin: Lantus qHS based on BSG * 10 units for BSG less than 120 mg/dL * 15 units for BSG 120 mg/dL or above * Bolus insulin * NovoLog per scale ACHS or Q6hrs while NPO * Goal Range: Low 110 mg/dL - High 150 mg/dL * Correction Factor: 30 mg/dL/unit * Nutritional / Prandial insulin per carb ratio of 1 unit per 11 grams CHO consumed PLAN FOR DISCHARGE: * Per Tiffani Pulido (asthma educator), patient notes po consumption is significantly different as an outpatient (eats more). Will base discharge recommendations on current inpatient usage, acknowledging that adjustments/increases may be needed as an outpatient based on BSG and po consumption * Tresiba 15 units SC HS * Novolog AC - 1 unit for every 11 g CHO consumed * Per 05/27 note - patient follows with an solutions developer and has been educated on CHO counting. Ongoing outpatient management per solutions developer discretion
--- NOTE | 2019-05-30 13:59 | Cardiology Progress Note ---
Date of Service May 30, 2019 Assessment & Plan (1) Ischemic cardiomyopathy: (2) KELLI (acute kidney injury): He had significant diuresis yesterday, with a urine output of 3 L, fluid balance of -2.2 L. Creatinine was 2.9 yesterday, 2.86 today. Nephrology input noted appreciated, he is to receive 1 more dose of IV furosemide this afternoon, and then will hold tomorrow's dose and await his kidney function panel results. Blood pressure appears to be much improved on his current regimen including indoor, nifedipine, carvedilol. Subjective Chief complaint: Follow-up shortness of breath Subjective: Patient feeling improved. Denies chest pain or shortness of breath. Review of Systems Review of Systems: All systems reviewed & are unremarkable except as noted in HPI & below Physical Exam Physical Exam: Temp Pulse Resp BP Pulse Ox 36.7 C 75 20 123/76 97 05/30/19 11:25 05/30/19 12:00 05/30/19 11:25 05/30/19 11:25 05/30/19 11:25 Constitutional: WD/WN, vitals as above Respiratory: normal respiratory effort, lungs clear to auscultation Cardiovascular: RRR, no murmur, no edema Gastrointestinal (Abdomen): normal bowel sounds, soft, nontender, no hepatosplenomegaly Neurologic: PERRL, EOMI, accommodation nl, no face palsy, no dysarthria Results & Data Vital Signs (Past 12 Hours) Vital Signs Temp Pulse Pulse Pulse Resp BP BP 05/30/19 12:00 75 05/30/19 11:25 36.7 C 72 20 123/76 05/30/19 08:00 75 05/30/19 07:19 36.6 C 72 19 124/78 05/30/19 03:52 36.5 C 73 16 132/71 Pulse Ox 05/30/19 12:00 05/30/19 11:25 97 05/30/19 08:00 05/30/19 07:19 95 05/30/19 03:52 94
[2019-05-30] MEDS ORDERED: FUROSEMIDE 20 MG in SYRINGE 0 ML IV ONE (14:00)
--- NOTE | 2019-05-30 18:27 | Hospitalist Progress Note ---
Date of Service May 30, 2019 Assessment & Plan (1) CHF (congestive heart failure): ACUTE ON CHRONIC CONGESTIVE HEART FAILURE EXACERBATION, SYSTOLIC AND DIASTOLIC TYPE EF 45 %, Grade 2 Diastolic CHF -Lasix 40mg IV BID ordered Diuresing well - crea has increased now 0.86 Continue Lasix 20 mg IV twice daily Monitor creatinine - Cardio and Nephro on board ACUTE RENAL FAILURE ON CKD 3, SOLITARY KIDNEY History of renal cell carcinoma(clear cell) status post nephrectomy CKD stage III -baseline 2.2 now 2.7--> 2.86 - monitor while on Lasix DM 2 (+) hypoglycemia 05/28/2019 Lantus transition to Tresiba Blood glucose within goal range today Pharmacy Glycemic Control consulted HYPERTENSION Coreg increased to 25 mg twice daily continue: Nifedipine xl 30 mg at bedtime Ramipril 5 mg daily Imdur 90 mg daily flomax 0.4 mg daily. RECENT NSTEMI (non-ST elevated myocardial infarction): in the setting of HTN urgency Cardiac cath : LM -luminal irregularities LAD -20 to 30% ostial, diffuse 50% mid at takeoff of first septal extending past takeoff of second diagonal. 99% earlydistal and 99% stenosis as wraps around apex. Bifurcating first septal with high-grade ostial stenosis. Moderate caliber second diagonal with luminal irregularities and LAUREN-3 flow. Circumflex -moderate caliber vessel, 20 to 30% ostial. Very small OM 2 occluded with partial filling distally via left to left collaterals. Very small left PLB with 95% stenosis. RCA -dominant, patent proximal to mid stents, latemid luminal irregularities, 30 to 40% distal stenosis prior to takeoff of right PDA. LVEDP -30-elevated Summary: 1. Severe single vessel chronic coronary artery disease -50% diffuse mid LAD, sequential 99% distal LAD lesions 2. Elevated intracardiac filling pressure --- resolved with improvement in blood pressure continue Aspirin, Effient HISTORY OF MELANOMA IN BACK Status post wide margin resection No recent recurrence as per patient CODE STATUS: Full code DVT prophylaxis: Subcu heparin Disposition: pending anticipate d/c home when medically stable Subjective Follow-up for CHF exacerbation Seen resting in bed, comfortable, not distress, in good spirits States breathing continues to improve, no active dyspnea on the time of my exam Denies chest pain No problems with voiding No other symptoms Review of Systems Review of Systems: All systems reviewed & are unremarkable except as noted in HPI & below Physical Exam Physical Exam: General- oriented x 3, not in distress, speaks in sentences with no effort or accessory muscle use Eyes- anicteric Neck- no JVD Lungs- clear breath sounds bilaterally No crackles, no wheezing Heart- normal rate, regular rhythm; no murmurs Abdomen- normal bowel sounds, nondistended, soft, nontender Extremities- no pretibial edema, no calf tenderness Neuro- alert, oriented x 3; no gross focal neurologic deficits Skin- warm & dry Results & Data Vital Signs (Past 12 Hours) Vital Signs Temp Pulse Pulse Pulse Resp BP BP 05/30/19 16:00 75 05/30/19 15:36 36.6 C 74 18 153/72 H 05/30/19 12:00 75 05/30/19 11:25 36.7 C 72 20 123/76 05/30/19 08:00 75 05/30/19 07:19 36.6 C 72 19 124/78 Pulse Ox 05/30/19 16:00 05/30/19 15:36 98 05/30/19 12:00 05/30/19 11:25 97 05/30/19 08:00 05/30/19 07:19 95 (1) CHF (congestive heart failure) Heart failure chronicity: acute Heart failure type: unspecified Qualified Code(s): I50.9 - Heart failure, unspecified
[2019-05-30] MEDS: MUPIROCIN 2% OINT 22 GM TUBE EXT SCH (20:13)
[2019-05-30] MEDS: NIFEdipine EXTENDED REL 30 MG TABCR PO SCH (20:14)
[2019-05-30] MEDS: SIMVASTATIN 20 MG TAB PO SCH (20:14)
[2019-05-30] MEDS: PRASugrel TAB 10 MG TAB PO SCH (20:15)
[2019-05-30] MEDS: INSULIN DEGLUDEC 200 UNIT/ML SQ SCH (20:18)
[2019-05-31] MEDS: HEPARIN SOD 5,000 UNIT/0.5 ML VIAL SQ SCH (06:12)
[2019-05-31 06:38] LABS: Basophils # (auto) 0.03 K/uL (0-0.2); Basophils % (auto) 0.3 %; Eosinophils # (auto) 0.23 K/uL (0-0.5); Hematocrit (blood only) 33.7 % (42-52); Hemoglobin 11.1 g/dL (14.0-18.0); Immature Granulocytes # (auto) 0.06 K/uL (0.00-0.02); Immature Granulocytes % (auto) 0.5 %; Lymphocytes # (auto) 2.01 K/uL (1.2-3.4); Lymphocytes % (auto) 17.6 %; Mean Corpuscular Hemoglobin 29.1 pg (25-34); Mean Corpuscular Hgb Conc 32.9 g/dL (32-36); Mean Corpuscular Volume 88.5 fL (80-100); Mean Platelet Volume 9.6 fL (7.4-10.4); Monocytes # (auto) 1.37 K/uL (0.11-0.59); Neutrophils # (auto) 7.75 K/uL (1.4-6.5); Neutrophils % (auto) 67.6 %; Platelet Count 276 K/uL (130-400); RDW Coefficient of Variation 13.1 % (11.5-14.5); Red Blood Count 3.81 M/uL (4.7-6.1); White Blood Count 11.45 K/uL (4.8-10.8)
[2019-05-31 07:15] LABS: BUN Creatinine Ratio 22.9 (10-20); Creatinine Clr Calc Pharmacy 34.4 ml/min; Est GFR (African American) 27.4; Est GFR (Non-African American) 23.6; Potassium 3.9 mmol/L (3.5-5.1)
[2019-05-31] MEDS: MUPIROCIN 2% OINT 22 GM TUBE EXT SCH (07:59)
[2019-05-31] MEDS: CARVEDILOL 25 MG TAB PO SCH (08:00)
[2019-05-31] MEDS: ASPIRIN 81 MG ECTAB PO SCH (08:00)
[2019-05-31] MEDS: DULOXETINE HCL 60 MG CAP PO SCH (08:00)
[2019-05-31] MEDS: TAMSULOSIN HCL 0.4 MG CAP PO SCH (08:01)
[2019-05-31] MEDS: ISOSORBIDE MONO EXTENDED REL 30 MG TABCR PO SCH (08:01)
[2019-05-31] MEDS: CYANOCOBALAMIN 500 MCG TABLET (VITAMIN B-12) PO SCH (08:02)
[2019-05-31] MEDS: OMEGA-3 (PURIFIED FISH OIL) 1 GM CAP PO SCH (08:02)
[2019-05-31] MEDS: CHOLECALCIFEROL 1,000 UNITS TAB PO SCH (08:02)
[2019-05-31] MEDS: INSULIN ASPART 100 UNITS/ML 3 ML PEN SC SCH ×2 (08:06→12:37)
[2019-05-31] MEDS: NIACIN EXTENDED REL 500 MG TABCR PO SCH (08:11)
[2019-05-31] MEDS ORDERED: FUROSEMIDE 40 MG TAB PO SCH (09:15)
--- NOTE | 2019-05-31 09:15 | Nephrology Progress Note ---
Date of Service May 31, 2019 Assessment & Plan (1) CKD (chronic kidney disease) stage 3, GFR 30-59 ml/min: Patient with acute kidney injury on CKD. Baseline creatinine 2.1-2.3 but now creatinine plateau'd at 2.8-2.9, 2.8 today. worse w/ volume overload/diastolic HF; but also with poor tolerance of diuretic. admission wt 113.7 on 05/27 standing scale; today 105.2 -changed lasix to 40 mg po daily starting today -cont strict I/O and daily standing wt - Avoid nephrotoxins such as contrast and NSAIDs. -lowered ASA dose to 81 mg daily -daily BMP >>f/u appt in CKD clinic [facility] Saturday 06/16 at 1020; pls have him get bmp qMonday until then [facility] Care coordinated w/ Ayesha Mckeon, Camryn (2) CHF (congestive heart failure): Patient with a recent NSTEMI now coming in with shortness of breath. Chest x-ray showed pulmonary edema. Down as of today 8.5 kg since admission -start po lasix as above -Monitor input output and daily standing weight. -cont <2gm Na diet and 1.5L FR including at d/c (3) HTN (hypertension): Blood pressure at goal past 24 hrs. continue as above lasix (lower dose), nifedipine ER 30 hs w/ hold parameters -cont increased coreg to 25 mg bid -d/c on 40 mg lasix po daily; reluctant to use even low dose torsemide given lab ility of his renal function even w/o torsemide -plan to resume ACEI as OP when appropriate Subjective no c/o sob, chest pain, healy, abd pain or gi upset, voiding concerns, rash; cont to ambulate w/o difficulty Review of Systems Review of Systems: All systems reviewed & are unremarkable except as noted in HPI & below Physical Exam Constitutional: well developed, well nourished, + obese and cooperative; no acute distress Eyes: EOM intact bilaterally ENMT: Ears: no external ear abnormality Nose: no external nose abnormality Mouth: + dry oral mucous membranes Neck: no nuchal rigidity Respiratory: + labored breathing (very slightly increased wob) and + paradoxical thoraco-abdominal movement Auscultation: + diminished lung sounds Cardiovascular: RRR, no murmur, no edema Gastrointestinal (Abdomen): Inspection/Auscultation: normal bowel sounds Percussion/Palpation: abdomen soft; abdomen nontender Musculoskeletal: Extremities: strength 5/5 throughout Skin: no rashes, warm and dry Psychiatric: Orientation: alert and oriented x 3 Speech: normal rate/rhythm/volume of speech Affect: + anxious affect Insight: + limited insight Results & Data Vital Signs (Past 12 Hours) Vital Signs Temp Pulse Pulse Resp BP BP Pulse Ox 05/31/19 07:40 36.5 C 69 20 134/67 98 05/31/19 03:25 36.7 C 71 16 138/72 97 05/30/19 23:23 36.8 C 70 16 128/73 96 Laboratory Results 05/31/19 06:04 05/31/19 06:04 (1) CHF (congestive heart failure) Heart failure chronicity: acute Heart failure type: unspecified Qualified Code(s): I50.9 - Heart failure, unspecified (2) HTN (hypertension) Hypertension type: unspecified Qualified Code(s): I10 - Essential (primary) hypertension
--- NOTE | 2019-05-31 12:14 | Hospitalist Progress Note ---
Date of Service May 31, 2019 Assessment & Plan (1) CHF (congestive heart failure): ACUTE ON CHRONIC CONGESTIVE HEART FAILURE EXACERBATION, SYSTOLIC AND DIASTOLIC TYPE EF 45 %, Grade 2 Diastolic CHF -Lasix 40mg IV BID ordered Diuresing well - crea has increased now 2.8 given Lasix 20 mg IV twice daily -Creatinine remaining at 2.8 -Horseback Riding Instructor Dr. Little and system support developer Dr. Dahl consulted -Discharge plan: Lasix 40 mg p.o. daily Repeat basic metabolic profile Wednesday, June 05, [address] Follow-[address]. Castano Wednesday June 05, 2019 9:25 AM Follow-up with Dr. Little Wednesday, June 05, 2019 1 PM Follow-up with Dr. Duran June 16 at 10:20 AM - Cardio and Nephro on board ACUTE RENAL FAILURE ON CKD 3, SOLITARY KIDNEY History of renal cell carcinoma(clear cell) status post nephrectomy CKD stage III -baseline 2.2 Remained at 2.8 while on Lasix IV Continue to monitor renal function closely while on Lasix Aspirin reduced to 81 mg p.o. daily DM 2 (+) hypoglycemia 05/28/2019 [facility] transitioned to [facility] Glycemic Control consulted Resume usual regimen HYPERTENSION Coreg increased to 25 mg twice daily continue: Nifedipine xl 30 mg at bedtime Ramipril 5 mg daily Imdur 90 mg daily flomax 0.4 mg daily Monitor and titrate medications accordingly RECENT NSTEMI (non-ST elevated myocardial infarction): in the setting of HTN urgency Cardiac cath : LM -luminal irregularities LAD -20 to 30% ostial, diffuse 50% mid at takeoff of first septal extending past takeoff of second diagonal. 99% earlydistal and 99% stenosis as wraps around apex. Bifurcating first septal with high-grade ostial stenosis. Moderate caliber second diagonal with luminal irregularities and LAUREN-3 flow. Circumflex -moderate caliber vessel, 20 to 30% ostial. Very small OM 2 occluded with partial filling distally via left to left collaterals. Very small left PLB with 95% stenosis. RCA -dominant, patent proximal to mid stents, latemid luminal irregularities, 30 to 40% distal stenosis prior to takeoff of right PDA. LVEDP -30-elevated Summary: 1. Severe single vessel chronic coronary artery disease -50% diffuse mid LAD, sequential 99% distal LAD lesions 2. Elevated intracardiac filling pressure --- resolved with improvement in blood pressure continue Aspirin, Effient HISTORY OF MELANOMA IN BACK Status post wide margin resection No recent recurrence as per patient CODE STATUS: Full code DVT prophylaxis: Subcu heparin Disposition: Discharge to home, patient has declined home health services Follow-up with PCP, tunneller, system support developer as noted above Subjective Follow-up for CHF exacerbation, acute renal failure Seen resting in bed, comfortable, in good spirits Denies shortness of breath, chest pain, palpitations, dizziness No problems with voiding Denies any other symptoms Review of Systems Review of Systems: All systems reviewed & are unremarkable except as noted in HPI & below Physical Exam Physical Exam: General- oriented x 3, not in distress, speaks in sentences with no effort or accessory muscle use Eyes- anicteric Neck- no JVD Lungs- clear breath sounds bilaterally, no crackles, no wheezing bilaterally Heart- normal rate, regular rhythm; no murmurs Abdomen- normal bowel sounds, nondistended, soft, nontender Extremities- no pretibial edema, no calf tenderness Neuro- alert, oriented x 3; no gross focal neurologic deficits Skin- warm & dry Results & Data Vital Signs (Past 12 Hours) Vital Signs Temp Pulse Pulse Pulse Resp BP BP 05/31/19 08:00 68 05/31/19 07:40 36.5 C 69 20 134/67 05/31/19 03:25 36.7 C 71 16 138/72 Pulse Ox 05/31/19 08:00 05/31/19 07:40 98 05/31/19 03:25 97 (1) CHF (congestive heart failure) Heart failure chronicity: acute Heart failure type: unspecified Qualified Code(s): I50.9 - Heart failure, unspecified
--- NOTE | 2019-05-31 12:25 | Discharge Summary ---
Date of Service May 31, 2019 Admission HPI Per Admitting Provider Patient is a 59 year old male with Ischemic Cardiomyopathy, Diastolic Dysfunction, CKD 3, HTN presenting with dyspnea on exertion, wheezing. Patient was discharged the previous day after being treated for HTN and chest pain. As per , patient was noted to have wheezing and dyspnea on minimal exertion starting the previous evening. No cough, fever/chills, chest pain. CT chest at the ER showed possible pulmonary edema. Crea increased to 2.7 Admission Exam Per Admitting Provider General- oriented x 3, not in distress, speaks in sentences with no effort or accessory muscle use Head- atraumatic Eyes- PERRL, EOMI, anicteric ENT- oropharynx clear Neck- supple, no JVD, no adenopathy, no thyromegaly; carotids +2/2, no bruits appreciated Lungs- faint wheeze bilaterally Heart- normal rate, regular rhythm; no murmur, no gallop, no rub appreciated Abdomen- normal bowel sounds, nondistended, soft, nontender, no masses or hepatosplenomegaly Extremities-(+) lower leg edema- grade 1, no calf tenderness; peripheral pulses intact Neuro- alert, oriented x 3; CN 2-12 grossly intact; motor 5/5 bilaterally;sensation 100% on all extremities; no other gross focal neurologic deficits Skin- warm & dry Principal Diagnosis Congestive heart failure exacerbation, acute renal failure and CKD stage III Discharge Exam General- oriented x 3, not in distress, speaks in sentences with no effort or accessory muscle use Eyes- anicteric Neck- no JVD Lungs- clear breath sounds bilaterally, no crackles, no wheezing bilaterally Heart- normal rate, regular rhythm; no murmurs Abdomen- normal bowel sounds, nondistended, soft, nontender Extremities- no pretibial edema, no calf tenderness Neuro- alert, oriented x 3; no gross focal neurologic deficits Skin- warm & dry Discharge Data Allergies Allergy/AdvReac Type Severity Reaction Status Date / Time cucumber Allergy Severe reports Verified 05/27/19 09:06 rash/hives NSAIDS (Non-Steroidal AdvReac Severe to avoid Verified 05/27/19 09:06 Anti-Inflamma due to poor renal fxn oseltamivir [From Tamiflu] AdvReac Unknown Confusion Verified 05/27/19 09:06 Consultations 05/27/19 12:13 ED Decision to Admit Stat 05/27/19 14:05 Consult Cardiology Routine Consult Nephrology Routine Ordered Studies 05/27/19 10:03 CT OF THE CHEST WITHOUT IV CONTRAST CLINICAL HISTORY: Chest pain. Evaluate for pneumonia. COMPARISON STUDY: Chest radiograph and right rib series May 22, 2019. CT DOSE: 936.16 mGy.cm TECHNIQUE: Axial images of the chest were obtained without IV contrast. Images were reviewed in the axial, sagittal, and coronal planes. IV contrast was not administered for this examination. Automated exposure control was utilized for the study. A dose lowering technique was utilized adhering to the principles of ALARA. FINDINGS: No mediastinal hematoma is present. The heart is mildly enlarged. A prominent subcarinal lymph node is at the upper limits of normal for size. There is bilateral gynecomastia. No pneumothorax is present. There are small bilateral pleural effusions with bibasilar opacities consistent with atelectasis. Interlobular septal thickening indicates pulmonary edema. There is a 1 cm ground glass opacity with central nodular density within the left lower lobe on image 165 of 301. Right-sided rib fractures are again noted as shown in rib series May 22, 2019. These fractures are essentially nondisplaced. There are fractures of the right fifth through eighth ribs. Upper abdomen is unremarkable. IMPRESSION: 1. Small bilateral pleural effusions with bibasilar opacities consistent with atelectasis. No CT evidence for pneumonia. 2. Mild pulmonary edema. 3. Acute essentially nondisplaced right fifth through eighth rib fractures. No pneumothorax. Electronically signed by: Juan Jose Titus M.D. 05/27/2019 11:20 AM Hospital Course (1) CHF (congestive heart failure): ACUTE ON CHRONIC CONGESTIVE HEART FAILURE EXACERBATION, SYSTOLIC AND DIASTOLIC TYPE - EF 45 %, Grade 2 Diastolic CHF -Readmitted a day after being discharged for shortness of breath, edema -Lasix 40mg IV BID ordered Diuresed well Weight down from 113 kg to 105 kg - crea has increased but plateaued, now 2.8 (baseline 2.2) Decreased Lasix 20 mg IV twice daily -Creatinine remaining at 2.8 -Ammonium Nitrate Crystallizer Dr. Little and economic geographer Dr. Dahl consulted -Discharge plan: Lasix 40 mg p.o. daily Repeat basic metabolic profile Wednesday, June 05, 2019 Follow-up Dr. Castano Wednesday June 05, 2019 9:25 AM Follow-up with Dr. Little Wednesday, June 05, 2019 1 PM Follow-up with Dr. Duran June 16 at 10:20 AM ACUTE RENAL FAILURE ON CKD 3, SOLITARY KIDNEY History of renal cell carcinoma(clear cell) status post nephrectomy CKD stage III -baseline 2.2 Remained at 2.8 while on Lasix IV Continue to monitor renal function closely while on Lasix Aspirin reduced to 81 mg p.o. daily -Follow-up with Dr. Duran as outlined above DM 2 (+) hypoglycemia 05/28/2019 Lantus transitioned to [facility] Glycemic Control consulted Resume usual regimen HYPERTENSION Coreg increased to 25 mg twice daily continue: Nifedipine xl 30 mg at bedtime Ramipril 5 mg daily Imdur 90 mg daily flomax 0.4 mg daily Monitor and titrate medications accordingly RECENT NSTEMI (non-ST elevated myocardial infarction): in the setting of HTN urgency -First admission for hypertensive urgency, with chest pain Cardiac cath : LM -luminal irregularities LAD -20 to 30% ostial, diffuse 50% mid at takeoff of first septal extending past takeoff of second diagonal. 99% earlydistal and 99% stenosis as wraps around apex. Bifurcating first septal with high-grade ostial stenosis. Moderate caliber second diagonal with luminal irregularities and LAUREN-3 flow. Circumflex -moderate caliber vessel, 20 to 30% ostial. Very small OM 2 occluded with partial filling distally via left to left collaterals. Very small left PLB with 95% stenosis. RCA -dominant, patent proximal to mid stents, latemid luminal irregularities, 30 to 40% distal stenosis prior to takeoff of right PDA. LVEDP -30-elevated Summary: 1. Severe single vessel chronic coronary artery disease -50% diffuse mid LAD, sequential 99% distal LAD lesions 2. Elevated intracardiac filling pressure --Chest pain resolved with improvement in blood pressure continue Aspirin, Effient Nasal MRSA --Bactroban x5 days total HISTORY OF MELANOMA IN BACK Status post wide margin resection No recent recurrence as per patient Disposition: Discharge to home, patient has declined home health services Follow-up with PCP, staff analyst, economic geographer as noted above Care discussed with patient at the bedside and his Chen over the phone Questions answered They are comfortable, understanding with the plan of care Total Time Total Time Spent Total Time Spent (In Minutes): 60 minutes Discharge Plan Discharge Items Reason For Visit: WHEEZING Discharge Diagnosis: CONGESTIVE HEART FAILURE EXACERBATION Activity: As commented below Activity Comment: Resume activity as tolerated, no heavy exertion Lifting: Wait until after follow-up appointment Exercise/Sports: Wait until after follow-up appointment Non-emergency contact: Primary Care Provider and Ammonium Nitrate Crystallizer Call non-emergency contact if: you have any medication questions, your symptoms worsen and you have a fever Follow-up/Referrals: Dalila Duran MD, PhD [Physician] - 06/16/19 10:20 am Jonny Little DO [Family Provider] - 06/05/19 1:00 pm Reuben Catsano MD [Primary Care Provider] - 06/05/19 9:25 am Diet: Carb Consistent or DM2, Heart Healthy and Low Sodium (2gm) Fluids: 1500ml (6 cups) Addtl Attending Provider Instructions: Your new medications are: Lasix 40 mg daily Coreg increased to 25 mg twice a day Aspirin reduced to 81 mg p.o. daily Bactroban x4 days Please follow-up with your primary care physician, staff analyst, and economic geographer as noted above. Call your Primary Care doctor if any of the following symptoms or problems start or get worse: Shortness of breath or difficulty breathing Wake up at night short of breath Chest pain Cough Swelling of your hands, feet, or legs More fatigued or tired with your normal activity Palpitations - sudden fast heart beats WEIGHT Weigh yourself every morning after using the bathroom. Use the same scale. Wear the same amount of clothing. Write your weight down on a chart. Call your Primary Care doctor if you gain more than 2-3 pounds in 1-2 days. MEDICATIONS Use this discharge instruction sheet for medication instructions. Take your medications at the time your doctor ordered. Do not skip a dose of your medicines. If you miss a dose of medicine, take it as soon as possible, but DO NOT DOUBLE A DOSE. Read your medicine information when you get home. Know all of the side effects of your medicine. If in doubt, ask your pharmacist Call your Primary Care doctor's office if you have any side effects. Be sure all of your doctors know what medicine and herbs you take (including cold, flu, and herbal medicine). Take the following with you to your follow-up doctor appointments: Weight Chart Medication List List of questions Do not drink excessive alcohol, beer or wine. Who to Call and When: Call 911 or go to the Emergency Room if: If at any time you feel your situation is an emergency You have tightness or pain in your chest that does not go away with rest or Nitroglycerin You are very short of breath even with rest. Pending Studies at Discharge: Yes Studies:: Repeat blood work-basic metabolic profile-on Wednesday June 05, 2019 in your primary care physician's office. Stand-Alone Forms: [facility], Sm[facility] Cess[facility] Medications and DC Order Prescriptions: New carvedilol 25 mg Tablet 25 mg PO BID 30 Days Qty: 60 RF: 2 aspirin [Ecotrin Low Strength] 81 mg Tablet,Delayed Release (Dr/Ec) 81 mg PO DAILY Qty: 30 RF: 0 furosemide 40 mg Tablet 40 mg PO QAM 30 Days Qty: 30 RF: 2 mupirocin 2 % Ointment 1 applic EXT BID 4 Days Qty: 30 RF: 0 Continued cholecalciferol (vitamin D3) [Vitamin D3] 1,000 unit Capsule 3,000 unit PO DAILY RF: 0 cyanocobalamin (vitamin B-12) [Vitamin B-12] 1,000 mcg Tablet 1,000 mcg PO DAILY RF: 0 tamsulosin 0.4 mg capsule 0.4 mg PO DAILY RF: 0 simvastatin 20 mg tablet 20 mg PO HS RF: 0 duloxetine 60 mg capsule,delayed release(DR/EC) 60 mg PO DAILY RF: 0 isosorbide mononitrate 60 mg tablet extended release 24 hr 90 mg PO DAILY RF: 0 prasugrel [Effient] 10 mg Tablet 10 mg PO DAILY RF: 0 niacin 500 mg tablet extended release 24 hr 500 mg PO DAILY RF: 0 meclizine 12.5 mg Tablet 12.5 mg PO Q8 PRN (Reason: Dizziness) RF: 0 acetaminophen-codeine 300-30 mg tablet 1 tab PO UD PRN (Reason: Pain) RF: 0 alprazolam [Xanax] 0.25 mg Tablet 0.25 mg PO Q8 PRN (Reason: Anxiety) RF: 0 colchicine [Colcrys] 0.6 mg Tablet 0.6 mg PO DAILY PRN (Reason: as directed) RF: 0 Novolog Flexpen U-100 Insulin 100 unit/mL (3 mL) Insulin Pen SUBCUT TIDM RF: 0 Tradjenta 5 mg Tablet 5 mg PO DAILY RF: 0 Vascepa 1 gram Capsule 1 g PO BID RF: 0 Tresiba FlexTouch U-200 200 unit/mL (3 mL) Insulin Pen 72 unit SUBCUT HS RF: 0 nifedipine [Adalat CC] 30 mg Tablet Extended Release 30 mg PO HS 30 Days Qty: 30 RF: 2 Discontinued aspirin 81 mg Tablet,Delayed Release (Dr/Ec) 162 mg PO DAILY RF: 0 ramipril 5 mg capsule 5 mg PO DAILY RF: 0 carvedilol 6.25 mg Tablet 18.75 mg PO BID 30 Days Qty: 180 RF: 2 Admission Data Admit Date/Time: 05/30/19 18:27 Attending Provider: Diann Hodge I. Admit Provider: Kamari Cowan Primary Care Provider: Reuben Castano Other Providers: Shai Baez ; Frank Hankins ; Fam Cid ; Kamari Cowan
== END 2019-05-31 14:20 | disposition home or self-care (01) | DRG 682 ==
LOC: 2E 08:07 → ED 08:07 → 2E 13:45 → SUATTDRO 05-30 18:27